=== PATIENT | female | born 1965 | race Caucasian/White ===

== ENCOUNTER 2017-01-22 13:28 | Emergency (ER) | payer OTHER ==
[~2017-01-22] VITALS: Ht 167.6 cm; Wt 81.6 kg
[~2017-01-22 13:28] MED LIST: CIPR500T78 PO; CLAR-19 PO; DIAZ-345 PO; FLUO40CA12 PO; HCT25T; HYDR-1231 PO; HYDR-2997 PO; HYDR-3583 PO; HYDR-3714 PO; IBP200T PO; LISI2.5T PO; LOSA25TA5 PO; MECL-106 PO; MECL-124 PO; MELO7.5T PO; METH4TAB PO; MTF500T PO; OMEG1CAP74 PO; ONDA4TAB8 SL; ONDA8TAB13 PO; ONDAN4ODT PO; PHEN200T27 PO; PRAV10TA23; PRD20T PO; PRM25T PO; SCOP1PAT TD; SMV20T PO; SULF-222 PO
--- OUTSIDE RECORDS SUMMARY | 2017-01-22 13:33 | XMS REPORT | Continuity of Care Document ---
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 Name Role Phone GINNY REESE MD PCP Insurance Providers Payer Name Policy Number Subscriber Name Relationship [facility] [place] [id number] Anna Fall 18 Self / Same As Patient Advance Directives Directive Response Recorded Date/Time Advance Directives No 09/24/16 11:14am Health Care Power of Apparatus Lineman No 09/24/16 11:14am Organ Donor No 09/24/16 11:14am Resuscitation Status Full Code 09/24/16 11:14am Chief Complaint and Reason for Visit Chief Complaint Dizziness/Syncope Reason for Visit Acute serous otitis media Vertigo Problems Active Problems Medical Problem Onset Date Status Acute serous otitis media Unknown Acute Right flank pain Unknown Acute Right ureteral stone Unknown Acute Ureterolithiasis Unknown Acute Ureterolithiasis Unknown Acute Ureterolithiasis Unknown Acute Vertigo Unknown Acute Medications Current Home Medications Medication Dose Units Route Directions Days/Qty Instructions Start Date Losartan Potassium 25 Mg 25 Mg Oral Twice A Day 25MG IN AM AND 50 IN PM 02/02/13 Meclizine Hcl 25 Mg 25 Mg Oral Three Times A Day as needed for Dizziness 30 09/24/16 Methylprednisolone 4 Mg 4 Mg Oral As Directed 1 09/24/16 Past Home Medications Medication Directions Ordered Status Meloxicam 7.5 Mg Tablet, 7.5 Mg Oral Prn 02/28/09 Discontinued Fluoxetine Hcl 40 Mg Capsule, 40 Mg Oral Daily 02/28/09 Discontinued Clarithromycin 500 Mg Tab, 500 Mg Oral Twice A Day 02/28/09 Discontinued Pravastatin Sodium 10 Mg Tablet, 09/17/09 Discontinued Hydrochlorothiazide 25 Mg Tab, 09/17/09 Discontinued Acetaminophen/Hydrocodone Bitart 1 Tab Tablet, 1 Each Oral Q 4 - 6 Hrs Prn Discontinued Promethazine Hcl 25 Mg Tablet, 1 Tab Oral Four Times Daily 09/17/09 Discontinued Meclizine Hcl 25 Mg Tab, 1 - 2 Tab Oral Q 4-6 Hours as needed 07/16/10 Discontinued Scopolamine Hcl 1 Patch .72 H Patch.td72, 1 Ea Transderm Every 3 Days Discontinued Ondansetron Hcl 4 Mg Tab, 4 Mg Oral Every 4HRS 07/16/10 Discontinued Diazepam 5 Mg Tablet, 1 Each Oral Three Times A Day And Prn 07/16/10 Discontinued Lisinopril 2.5 Mg Tablet, 2.5 Mg Oral Daily 01/22/12 Discontinued Simvastatin 20 Mg Tab, 20 Mg Oral Daily 01/22/12 Discontinued [place]-3/Dha/Epa/Fish Oil 1,000 Mg Capsule, 1000 Mg Oral Twice A Day 01/22/12 Discontinued Ibuprofen 200 Mg Tablet, 600 Each Oral Every 6 Hours 01/22/12 Discontinued Metformin Hcl (Glucophage) 500 Mg Tablet, 500 Mg Oral Daily 08/22/13 Discontinued Prednisone 20 Mg Tab, 40 Mg Oral Daily 08/22/13 Discontinued Trimethoprim/Sulfamethoxazole 1 Ea Tablet, 1 Ea Oral Twice A Day 08/22/13 Discontinued Acetaminophen/Hydrocodone Bitart 1 Tab Tab, 1 Ea Oral Q4hr Prn 08/22/13 Discontinued Hydrocodone Bit/Acetaminophen 1 Tab Tablet, 1 Tab Oral Every 4HRS 10/25/14 Discontinued Ondansetron Hcl 4 Mg Tab, 4 Mg Sublingual Every 4HRS as needed for Nausea/ Vomiting 10/25/14 Discontinued Ciprofloxacin Hcl 500 Mg Tablet, 500 Mg Oral Twice A Day 10/25/14 Discontinued Phenazopyridine Hcl 200 Mg Tablet, 1 Each Oral Three Times A Day as needed for Spasms 03/18/15 Discontinued Ciprofloxacin Hcl 500 Mg Tablet, 500 Mg Oral Twice A Day 03/18/15 Discontinued Acetaminophen/Hydrocodone Bitart 1 Each Tablet, 1 Each Oral Q4hr Prn as needed for Pain 03/18/15 Discontinued Ondansetron 8 Mg Tab.rapdis, 8 Mg Oral Every 6 Hours as needed for Nausea/ Vomiting 03/18/15 Discontinued Hydrocodone Bit/Acetaminophen 1 Tab Tablet, 1-2 Tab Oral Every 4HRS as needed for Pain 05/14/15 Discontinued Social History Social History Problem Response Recorded Date/Time Alcohol Use Denies Use 05/14/2015 5:02am Recreational Drug Use No 05/14/2015 5:02am Recent Foreign Travel No 09/24/2016 11:14am Recent Infectious Disease Exposure No 09/24/2016 11:14am Hospitalization with Isolation Denies 09/24/2016 11:14am Sexually Transmitted Disease No 09/24/2016 11:14am Smoking Status Never a Smoker 09/24/2016 11:14am Recent Hopitalizations No 09/24/2016 11:14am Sexually Transmitted Disease No 09/24/2016 11:14am Hospitalization with Isolation Denies 09/24/2016 11:14am Query Response Start Date Stop Date Smoking Status Never a Smoker Hospital Discharge Instructions No hospital discharge instructions. Plan of Care Discharge Date 09/24/16 12:24pm Disposition 01 HOME, SELF-CARE Condition at Discharge Stable Instructions/Education Provided Vertigo (a Type of Dizziness) (DC) Forms Provided Work Release Form Prescriptions See Medication Section Referrals GINNY REESE MD - Primary Care Physician Additional Instructions/Education 1. Follow-up with your doctor next week 2. Return to ER for any concerns All discharge instructions reviewed with patient and/or family. Voiced understanding. Functional Status Query Response Date Recorded Patient Orientation Person Place Time Situation Normal For Age September 24, 2016 11:14am Comprehension Ability Understands Concepts September 24, 2016 11:14am Allergies, Adverse Reactions, Alerts No known allergies. Immunizations No immunization records. Vital Signs Acute Vital Signs Vital Response Date/Time Temperature (Fahrenheit) 98.2 degrees F (97.6 - 99.5) 09/24/2016 11:14am Temperature (Calculated Celsius) 36.90716 degrees C (36.4 - 37.5) 09/24/2016 11:14am Pulse Rate (adult) 54 bpm (60 - 90) 09/24/2016 11:14am Respiratory Rate 18 bpm (12 - 24) 09/24/2016 11:14am O2 Sat by Pulse Oximetry 97 % (88 - 100) 09/24/2016 11:14am Blood Pressure 150/89 mm Hg 09/24/2016 11:14am Blood Pressure Mean 109 mm Hg 09/24/2016 11:14am Pain Numeric Pain Scale 0-No Pain 09/24/2016 11:14am Height (Feet) 5 feet 09/24/2016 11:14am Height (Inches) 5 inches 09/24/2016 11:14am Height (Calculated Centimeters) 165.519314 cm 09/24/2016 11:14am Weight (Pounds) 186 pounds 09/24/2016 11:14am Weight (Calculated Kilograms) 84.892865 kilograms 09/24/2016 11:14am Capillary Refill Capillary Refill Less Than 3 Seconds 09/24/2016 11:14am Height 5 ft 5 in Weight 186 lb Body Mass Index 31.0 kg/m^2 Results Laboratory Results Test Name Result Units Flags Reference Collection Date/Time Result Date/ Time Comments Urine Color YELLOW 09/24/2016 11:20am 09/24/2016 11:47am Urine Clarity CLEAR 09/24/2016 11:20am 09/24/2016 11:47am Urine pH 8 5-9 09/24/2016 11:20am 09/24/2016 11:47am Urine Specific [place] 1.010 * 1.016-1.022 09/24/2016 11:20am 2015 11:47am Urine Protein NEGATIVE NEGATIVE 09/24/2016 11:20am 09/24/2016 11: 47am Urine Glucose (UA) NEGATIVE NEGATIVE 09/24/2016 11:20am 09/24/2016 11 :47am Urine RBC (Auto) NEGATIVE NEGATIVE 09/24/2016 11:20am 09/24/2016 11: 47am Urine Ketones NEGATIVE NEGATIVE 09/24/2016 11:20am 09/24/2016 11: 47am Urine Nitrite NEGATIVE NEGATIVE 09/24/2016 11:20am 09/24/2016 11: 47am Urine Bilirubin NEGATIVE NEGATIVE 09/24/2016 11:20am 09/24/2016 11: 47am Urine Urobilinogen NORMAL MG/DL NORMAL 09/24/2016 11:20am 09/24/2016 11 :47am Urine Leukocyte Esterase NEGATIVE NEGATIVE 09/24/2016 11:20am 2015 11:47am Urine RBC NONE /HPF 09/24/2016 11:20am 09/24/2016 11:47am Urine WBC NONE /HPF 09/24/2016 11:20am 09/24/2016 11:47am Urine Bacteria NEGATIVE /HPF 09/24/2016 11:20am 09/24/2016 11:47am Urine Squamous Epithelial Cells 2-5 /HPF 09/24/2016 11:20am 2015 11:47am Urine Crystals NONE /LPF 09/24/2016 11:20am 09/24/2016 11:47am Urine Casts NONE /LPF 09/24/2016 11:20am 09/24/2016 11:47am Urine Mucus NEGATIVE /LPF 09/24/2016 11:20am 09/24/2016 11:47am Urine Culture Indicated NO 09/24/2016 11:20am 09/24/2016 11:47am Procedures No known history of procedures. Encounters Encounter Location Arrival/Admit Date Discharge/Depart Date Attending Provider Departed Emergency Room [facility] 09/24/16 11:08am 12:24pm ASHLEY GRAVES APRN Recent Diagnosis
[2017-01-22 13:59] LABS: BILIRUBIN,URINE NEGATIVE (NEGATIVE); KETONES,URINE NEGATIVE (NEGATIVE); LEUKOCYTE ESTERASE ,URINE NEGATIVE (NEGATIVE); NITRITE,URINE NEGATIVE (NEGATIVE); PH,URINE 6.5 (5-9); PROTEIN,URINE NEGATIVE (NEGATIVE); UROBILINOGEN,URINE NORMAL (NORMAL)
[2017-01-22 14:29] LABS: BASOPHILS # (AUTO) 0.1 10^3/uL (0.0-0.1); BASOPHILS % (AUTO) 1 % (0-10); EOSINOPHILS # (AUTO) 0.1 10^3/uL (0.0-0.3); EOSINOPHILS % (AUTO) 2 % (0-10); LYMPHOCYTES # (AUTO) 1.9 X 10^3 (1.0-4.0); LYMPHOCYTES % (AUTO) 32 % (12-44); MEAN CORPUSCULAR HEMOGLOBIN 32 PG (25-34); MEAN CORPUSCULAR HGB CONC 35 G/DL (32-36); MEAN CORPUSCULAR VOLUME 92 FL (80-99); MEAN PLATELET VOLUME 11.8 FL (7.4-10.4); MONOCYTES # (AUTO) 0.4 X 10^3 (0.0-1.0); MONOCYTES % (AUTO) 7 % (0-12); NEUTROPHILS # (AUTO) 3.4 X 10^3 (1.8-7.8); NEUTROPHILS % (AUTO) 58 % (42-75); PLATELET COUNT 214 10^3/uL (130-400); RED CELL DISTRIBUTION WIDTH 12.4 % (10.0-14.5); WHITE BLOOD COUNT 5.9 10^3/uL (4.3-11.0)
[2017-01-22 14:48] LABS: ALANINE AMINOTRANSFERASE 132 U/L (0-55); ALBUMIN 4.3 G/DL (3.2-4.5); ANION GAP 12 MMOL/L (5-14); ASPARTATE AMINO TRANSFERASE 107 U/L (5-34); BILIRUBIN,TOTAL 0.5 MG/DL (0.1-1.0); BLOOD UREA NITROGEN 15 MG/DL (7-18); BUN/CREATININE RATIO 19; CALCIUM 9.8 MG/DL (8.5-10.1); CARBON DIOXIDE 24 MMOL/L (21-32); CHLORIDE 104 MMOL/L (98-107); CREATININE SERUM 0.79 MG/DL (0.60-1.30); GFR ESTIMATED > 60; GLUCOSE 134 MG/DL (70-105); LIPASE 37 U/L (8-78); POTASSIUM 3.7 MMOL/L (3.6-5.0); SODIUM 140 MMOL/L (135-145); TOTAL PROTEIN 7.3 G/DL (6.4-8.2)
[2017-01-22] MEDS ORDERED: NS 100 ML (IVPB) BAG IV ONE (15:00)
[2017-01-22] MEDS ORDERED: IOHEXOL 350 MG/ML 100 ML (OMNIPAQUE 350) VIAL IV ONE (15:00)
[2017-01-22] MEDS ORDERED: CATHETER FLUSH 10 ML SYR IV PRN (15:00)
[2017-01-22] MEDS ORDERED: ONDANSETRON 4 MG/2 ML (SDV) Z0FRAN IVP ONE (15:00)
--- NOTE | 2017-01-22 16:00 | Diagnostic Imaging Report ---
PROCEDURE: CT abdomen and pelvis with contrast, rule out appendicitis. TECHNIQUE: Multiple contiguous axial images were obtained through the abdomen and pelvis after the administration of intravenous contrast. INDICATION: Abdominal pain. Nausea. CONTRAST: 100 mL of Omnipaque 350 was administered intravenously. FINDINGS: The lung bases appear clear. The liver, spleen, pancreas, and right adrenal gland appear unremarkable. The left adrenal gland demonstrates a 0.9 cm hypodense nodule which is better seen than on the 05/14/2015 study but was probably present with no definitive change in favor of an adenoma. The kidneys have symmetric enhancement and contrast excretion. There is no hydronephrosis. The appendix is normal. There is no bowel obstruction. The abdominal aorta is normal in caliber. There is no marnie-aortic significantly enlarged lymph node seen. There is suggestion of prior hysterectomy. The osseous structures appear grossly unremarkable. There is no free fluid or fluid collection in the abdomen or pelvis seen. IMPRESSION: 1. A 0.9 cm left adrenal hypodense nodule is similar to prior studies, likely related to an incidental adenoma. 2. The appendix is normal. No acute process. Dictated by: Dictated on workstation # [id number]
[2017-01-22] MEDS ORDERED: ONDA4TAB8 SL (16:25)
--- NOTE | 2017-01-22 16:25 | ED Abdominal Pain ---
General Chief Complaint: Abdominal/GI Problems Stated Complaint: ABD PAIN Nursing Triage Note: AMBULATED TO ROOM 10 WITHOUT DIFFICULTY. COMPLAINS OF PAIN RIGHT UPPER ABD STARTING APPX 1 HR AGO. HAS NOT TAKEN ANY MEDS TO DECREASE THE PAIN. Sepsis Screen: No Definite Risk Source of Information: Patient Exam Limitations: No Limitations History of Present Illness Time Seen By Provider: 13:31 Initial Comments This 51-year-old woman presents to the emergency room with complaints of right- sided abdominal pain that started within the last couple of hours. Earlier in the day she had loss of appetite and nausea without vomiting. She denies any diarrhea or constipation. Her last bowel movement was yesterday and was normal. Denies fever. She has some pain with walking and driving. Her last solid intake was at 09:00. She has been drinking tea since then. She is status post hysterectomy and cholecystectomy. She reports pain at this time is rated as 6/10. It was 9/10 at its worst. Allergies and Home Medications Allergies Coded Allergies: No Known Drug Allergies (Unverified , 02/28/09) Home Medications Losartan Potassium 25 Mg Tablet 25 MG PO BID (Reported) 25MG IN AM AND 50 IN PM Ondansetron 4 Mg Tab.rapdis #10 4 MG SL Q4H PRN PRN NAUSEA/VOMITING Prescribed by: FRANK PECK on 01/22/17 1625 Review of Systems Constitutional: no symptoms reported EENTM: No Symptoms Reported Respiratory: No Symptoms Reported Cardiovascular: No Symptoms Reported Gastrointestinal: See HPI Genitourinary: No Symptoms Reported Musculoskeletal: no symptoms reported Skin: no symptoms reported Psychiatric/Neurological: No Symptoms Reported Endocrine: No Symptoms Reported Past Gtqnpls-Ixpztw-Jmgzug Hx Patient Social History Alcohol Use: Denies Use Recreational Drug Use: No Smoking Status: Never a Smoker Recent Foreign Travel: No Contact w/Someone Who Travel: No Recent Infectious Disease Expo: No Recent Hopitalizations: No Immunizations Up To Date Tetanus Booster (TDap): Unknown Date of Influenza Vaccine: Aug 10, 2016 Seasonal Allergies Seasonal Allergies: No Surgeries HX Surgeries: Yes (KNEE, ELBOW SURG, X 2, skin lesion removals) Surgeries: Section, Gallbladder, Hysterectomy, Orthopedic, Tubal Ligation Respiratory Hx Respiratory Disorders: No Cardiovascular Hx Cardiac Disorders: Yes Cardiac Disorders: High Cholesterol, Hypertension Neurological Hx Neurological Disorders: No Reproductive System Hx Reproductive Disorders: No Sexually Transmitted Disease: No 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 Genitourinary Hx Genitourinary Disorders: Yes Genitourinary Disorders: Kidney Stones Gastrointestinal Hx Gastrointestinal Disorders: No Musculoskeletal Hx Musculoskeletal Disorders: No Endocrine Hx Endocrine Disorders: No HEENT HX ENT Disorders: No Cancer Hx Cancer: No Psychosocial Hx Psychiatric Problems: No Integumentary HX Skin/Integumentary Disorder: No Blood Transfusions Hx Blood Disorders: No Family Medical History Significant Family History: No Pertinent Family Hx Physical Exam Vital Signs VS - Last 72 Hours, by Label 01/22/17 01/22/17 13:40 16:30 Temp 98.0 Pulse 68 58 Resp 16 16 B/P 131/93 Pulse Ox 97 98 Capillary Refill : Less Than 3 Seconds General Appearance: WD/WN no apparent distress HEENT: PERRL/EOMI normal ENT inspection Neck: normal inspection Respiratory: lungs clear normal breath sounds no respiratory distress no accessory muscle use Cardiovascular: regular rate, rhythm no edema no murmur Gastrointestinal: normal bowel sounds soft tenderness (right middle and lower abdomen) Extremities: normal inspection no pedal edema Neurologic/Psychiatric: health care liaison II-XII nml as tested no motor/sensory deficits alert normal mood/affect oriented x 3 Skin: normal color warm/dry Focused Exam Lactic Acid Level Laboratory Tests Test 01/22/17 14:19 Alanine Aminotransferase (ALT/SGPT) 132U/L (0-55) H Albumin 4.3G/DL (3.2-4.5) Alkaline Phosphatase 87U/L (40-136) Anion Gap 12MMOL/L (5-14) Aspartate Amino Transf (AST/SGOT) 107U/L (5-34) H BUN/Creatinine Ratio 19 Blood Urea Nitrogen 15MG/DL (7-18) Calcium Level 9.8MG/DL (8.5-10.1) Carbon Dioxide Level 24MMOL/L (21-32) Chloride Level 104MMOL/L (98-107) Creatinine 0.79MG/DL (0.60-1.30) Estimat Glomerular Filtration Rate > 60 Glucose Level 134MG/DL (70-105) H Lipase 37U/L (8-78) Potassium Level 3.7MMOL/L (3.6-5.0) Sodium Level 140MMOL/L (135-145) Total Bilirubin 0.5MG/DL (0.1-1.0) Total Protein 7.3G/DL (6.4-8.2) Progress/Results/Core Measures Results/Orders Lab Results Laboratory Tests Test 01/22/17 13:50 01/22/17 14:19 Range/Units Urine Bacteria NEGATIVE /HPF Urine Bilirubin NEGATIVE NEGATIVE Urine Casts NONE /LPF Urine Clarity CLEAR Urine Color YELLOW Urine Crystals NONE /LPF Urine Culture Indicated NO Urine Glucose (UA) NEGATIVE NEGATIVE Urine Ketones NEGATIVE NEGATIVE Urine Leukocyte Esterase NEGATIVE NEGATIVE Urine Mucus NEGATIVE /LPF Urine Nitrite NEGATIVE NEGATIVE Urine Protein NEGATIVE NEGATIVE Urine RBC NONE /HPF Urine RBC (Auto) NEGATIVE NEGATIVE Urine Specific [place] 1.005 L 1.016-1.022 Urine Squamous Epithelial Cells 2-5 /HPF Urine Urobilinogen NORMAL NORMAL MG/DL Urine WBC NONE /HPF Urine pH 6.5 5-9 Alanine Aminotransferase (ALT/SGPT) 132 H 0-55 U/L Albumin 4.3 3.2-4.5 G/DL Alkaline Phosphatase 87 40-136 U/L Anion Gap 12 5-14 MMOL/L Aspartate Amino Transf (AST/SGOT) 107 H 5-34 U/L BUN/Creatinine Ratio 19 Basophils # (Auto) 0.1 0.0-0.1 10^3/uL Basophils (%) (Auto) 1 0-10 % Blood Urea Nitrogen 15 7-18 MG/DL Calcium Level 9.8 8.5-10.1 MG/DL Carbon Dioxide Level 24 21-32 MMOL/L Chloride Level 104 98-107 MMOL/L Creatinine 0.79 0.60-1.30 MG/DL Eosinophils # (Auto) 0.1 0.0-0.3 10^3/uL Eosinophils (%) (Auto) 2 0-10 % Estimat Glomerular Filtration Rate > 60 Glucose Level 134 H 70-105 MG/DL Hematocrit 40 35-52 % Hemoglobin 13.8 11.5-16.0 G/DL Lipase 37 8-78 U/L Lymphocytes # (Auto) 1.9 1.0-4.0 X 10^3 Lymphocytes (%) (Auto) 32 12-44 % Mean Corpuscular Hemoglobin 32 25-34 PG Mean Corpuscular Hemoglobin Concent 35 32-36 G/DL Mean Corpuscular Volume 92 80-99 FL Mean Platelet Volume 11.8 H 7.4-10.4 FL Monocytes # (Auto) 0.4 0.0-1.0 X 10^3 Monocytes (%) (Auto) 7 0-12 % Neutrophils # (Auto) 3.4 1.8-7.8 X 10^3 Neutrophils (%) (Auto) 58 42-75 % Platelet Count 214 130-400 10^3/uL Potassium Level 3.7 3.6-5.0 MMOL/L Red Blood Count 4.30 L 4.35-5.85 10^6/uL Red Cell Distribution Width 12.4 10.0-14.5 % Sodium Level 140 135-145 MMOL/L Total Bilirubin 0.5 0.1-1.0 MG/DL Total Protein 7.3 6.4-8.2 G/DL White Blood Count 5.9 4.3-11.0 10^3/uL My Orders Orders-FRANK DAMON MD Ua Culture If Indicated (01/22/17 13:31) Saline Lock/Iv-Start (01/22/17 14:07) Cbc With Automated Diff (01/22/17 14:07) Comprehensive Metabolic Panel (01/22/17 14:07) Lipase (01/22/17 14:07) Ct Abd/Pelv W (Appendicitis) (01/22/17 14:56) Iohexol Injection (Omnipaque 350 Mg/Ml 1 (01/22/17 15:00) Sodium Chloride Flush (Catheter Flush Sy (01/22/17 15:00) Ns (Ivpb) (Sodium Chloride 0.9% Ivpb Bag (01/22/17 15:00) Ondansetron Injection (Zofran Injectio (01/22/17 15:00) Ketorolac Injection (Toradol Injection) (01/22/17 16:30) Medications Given in ED Current Medications Medications Dose Ordered Sig/Abdi Route Start Time Stop Time Status Last Admin Dose Admin Iohexol 100 ml ONCE ONCE IV 01/22/17 15:00 01/22/17 15:03 DC 01/22/17 15:12 100 ML Ketorolac Tromethamine 30 mg ONCE ONCE IVP 01/22/17 16:30 01/22/17 16:31 DC 01/22/17 16:25 30 MG Ondansetron HCl 4 mg ONCE ONCE IVP 01/22/17 15:00 3/15/17 15:01 DC 01/22/17 15:05 4 MG Sodium Chloride 100 ml ONCE ONCE IV 01/22/17 15:00 01/22/17 15:03 DC 01/22/17 15:12 80 ML Vital Signs/I&O Vital Sign - Last 12Hours 01/22/17 01/22/17 13:40 16:30 Temp 98.0 Pulse 68 58 Resp 16 16 B/P 131/93 Pulse Ox 97 98 Blood Pressure Mean: 106 Progress Note : Progress Note Labs were unremarkable. Options discussed with patient including potential for CT scan versus careful observation at home. Patient elects CT scan after discussion of risks and benefits. CT scan was negative for acute abnormalities. Patient was given Toradol and Zofran for symptom management. Diagnostic Imaging Diagonstic Imaging: CT Plain Films/CT/US/NM/MRI: abdomen, pelvis Comments CT abdomen and pelvis viewed by me and report reviewed. See report below: NAME: ELISSA FALL [facility] REC#: [id number] PT STATUS: REG ER : 1965 PHYSICIAN: FRANK DAMON MD ADMIT DATE: 01/22/17/ER Draft Date of Exam:01/22/17 CT ABD/PELV W (APPENDICITIS) PROCEDURE: CT abdomen and pelvis with contrast, rule out appendicitis. TECHNIQUE: Multiple contiguous axial images were obtained through the abdomen and pelvis after the administration of intravenous contrast. INDICATION: Abdominal pain. Nausea. CONTRAST: 100 mL of Omnipaque 350 was administered intravenously. FINDINGS: The lung bases appear clear. The liver, spleen, pancreas, and right adrenal gland appear unremarkable. The left adrenal gland demonstrates a 0.9 cm hypodense nodule which is better seen than on the 05/14/2015 study but was probably present with no definitive change in favor of an adenoma. The kidneys have symmetric enhancement and contrast excretion. There is no hydronephrosis. The appendix is normal. There is no bowel obstruction. The abdominal aorta is normal in caliber. There is no marnie-aortic significantly enlarged lymph node seen. There is suggestion of prior hysterectomy. The osseous structures appear grossly unremarkable. There is no free fluid or fluid collection in the abdomen or pelvis seen. IMPRESSION: 1. A 0.9 cm left adrenal hypodense nodule is similar to prior studies, likely related to an incidental adenoma. 2. The appendix is normal. No acute process. Dictated on workstation # [id number] Dict: 01/22/17 1549 Trans: 01/22/17 1559 [id number] Interpreted by: KO JIMENEZ MD Departure Impression Impression: Primary Impression: Right-sided abdominal pain of unknown cause Additional Impression: Nausea Disposition: 01 HOME, SELF-CARE Condition: Improved Departure-Patient Inst. Decision time for Depature: 16:15 Referrals: GINNY REESE MD (PCP/Family) Primary Care Physician Patient Instructions: Acute Abdomen (Belly Pain), Adult (DC) Add. Discharge Instructions: Use Tylenol up to 1000 mg every 6 hours as needed for pain. If necessary, add ibuprofen up to 600 mg every 6 hours as needed for additional pain relief. Use Zofran (ondansetron) as prescribed for nausea. Follow-up with your doctor in a few days if pain becomes persistent. Return to the ER if symptoms worsen. Start with a clear liquid diet and gradually advance your diet as tolerated. All discharge instructions reviewed with patient and/or family. Voiced understanding. Scripts Ondansetron (Zofran Odt)4 Mg Tab.rapdis4 Mg SL Q4H PRN NAUSEA/VOMITING #10 TAB Prov:FRANK DAMON MD 01/22/17 FRANK DAMON MD Jan 22, 2017 16:25
[2017-01-22 16:30] VITALS: BP 123/80
[2017-01-22] MEDS ORDERED: KETOROLAC 30 MG/ML VIAL IVP ONE (16:30)
== END 2017-01-22 16:30 | disposition home or self-care (01) ==
LOC: EDUNIT# 13:28 → ER 13:30
DX: R10.11 Right upper quadrant pain (principal); R11.2 Nausea with vomiting, unspecified; I10 Essential (primary) hypertension; E27.9 Disorder of adrenal gland, unspecified; Z90.49 Acquired absence of other specified parts of digestive tract
CPT/HCPCS: 36415; 74177; 80053; 81000; 83690; 85025; 96374; 96375

== ENCOUNTER → 2017-02-10 | Outpatient (CLI) | payer OTHER | LOC: LAB 16:06 | PROVIDERS: ATTEND Internal Medicine Gastroenterology | DX: R74.0 Nonspecific elevation of levels of transaminase and lactic acid dehydrogenase [LDH] (principal); R93.8 Abnormal findings on diagnostic imaging of other specified body structures | CPT/HCPCS: 36415; 82390; 82728; 86803; 87340 ==

== ENCOUNTER 2017-07-25 12:45 | Emergency (ER) | payer OTHER ==
[~2017-07-25] VITALS: Ht 160 cm; Wt 68.0 kg
[2017-07-25 14:03] LABS: BILIRUBIN,URINE NEGATIVE (NEGATIVE); KETONES,URINE NEGATIVE (NEGATIVE); LEUKOCYTE ESTERASE ,URINE NEGATIVE (NEGATIVE); NITRITE,URINE NEGATIVE (NEGATIVE); PH,URINE 5 (5-9); PROTEIN,URINE 1+ (NEGATIVE); UROBILINOGEN,URINE 4 MG/DL (NORMAL)
[2017-07-25 14:13] LABS: CALCIUM OXALATE CRYSTALS,UR MODERATE /LPF; WBC,URINE RARE /HPF
[2017-07-25] MEDS ORDERED: NS IV 1000 ML 1,000 ML IV ONE (14:17)
--- NOTE | 2017-07-25 14:41 | ED Abdominal Pain ---
General Chief Complaint: Abdominal/GI Problems Stated Complaint: RLQ ABD PAIN Nursing Triage Note: c/o right lower abd pain. Onset yesterday. Mild nausea Sepsis Screen: No Definite Risk Source of Information: Patient Exam Limitations: No Limitations History of Present Illness Time Seen By Provider: 14:14 Initial Comments Here with report of right lower quadrant abdominal pain. Onset yesterday more periumbilical and moved to the right lower quadrant over night and this morning. Tried to ignore it but it began to hurt worse. Has had decreased appetite. Complains of nausea but no vomiting. Denies diarrhea but states like she feels like she could area and pain is worse with movement and better with rest. She has never had pain like this before. Timing/Duration: 24 Hours Severity/Quality: Moderate, Aching Location: RLQ Radiation: No Radiation Activities at Onset: None Modifying Factors: Worsens With Movement Associated Symptoms: No Back Pain, No Chest Pain, No Fever/Chills, Nausea/ Vomiting, No Shortness of Air, No Swelling/Mass in Abdomen, No Weakness Allergies and Home Medications Allergies Coded Allergies: No Known Drug Allergies (Unverified , 02/28/09) Home Medications Losartan Potassium 25 Mg Tablet, 25 MG PO BID, (Reported) 25MG IN AM AND 50 IN PM Ondansetron 4 Mg Tab.rapdis, 4 MG SL Q4H PRN for NAUSEA/VOMITING, #10 Prescribed by: FRANK PECK on 01/22/17 1625 Review of Systems Constitutional: see HPI, No chills, No fever EENTM: No Symptoms Reported Respiratory: No Symptoms Reported Cardiovascular: No Symptoms Reported Gastrointestinal: See HPI, Abdominal Pain, Nausea, Denies Vomiting Genitourinary: No Symptoms Reported Musculoskeletal: no symptoms reported Skin: no symptoms reported All Other Systems Reviewed Negative Unless Noted: Yes Past Oapfmif-Ziitid-Xtaqje Hx Patient Social History Alcohol Use: Denies Use Recreational Drug Use: No Smoking Status: Never a Smoker Recent Foreign Travel: No Contact w/Someone Who Travel: No Recent Infectious Disease Expo: No Recent Hopitalizations: No Immunizations Up To Date Tetanus Booster (TDap): Unknown Date of Influenza Vaccine: Aug 10, 2016 Seasonal Allergies Seasonal Allergies: No Surgeries History of Surgeries: Yes Surgeries: Gallbladder, Hysterectomy Cardiovascular Cardiac Disorders: High Cholesterol, Hypertension Reproductive System Hx Reproductive Disorders: No Sexually Transmitted Disease: No [employer]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 Genitourinary Genitourinary Disorders: Kidney Stones Reviewed Nursing Assessment Reviewed/Agree w Nursing PMH: Yes Family Medical History Significant Family History: No Pertinent Family Hx Physical Exam Vital Signs VS - Last 72 Hours, by Label 07/25/17 12:55 Temp 97.5 Pulse 70 Resp 16 B/P (MAP) 162/96 Pulse Ox 98 Capillary Refill : Less Than 3 Seconds General Appearance: WD/WN, no apparent distress HEENT: PERRL/EOMI, pharynx normal Neck: full range of motion, supple Respiratory: lungs clear, normal breath sounds Cardiovascular: regular rate, rhythm, no murmur Peripheral Pulses: 2+ Dorsalis Pedis (R), 2+ Left Dors-Pedis (L), 2+ Radial Pulses (R), 2+ Radial Pulses (L) Gastrointestinal: soft, No guarding, No rebound, tenderness (right lower quadrant) Extremities: non-tender, normal inspection Back: normal inspection, no CVA tenderness, no vertebral tenderness Neurologic/Psychiatric: alert, oriented x 3 Skin: normal color, warm/dry Progress/Results/Core Measures Results/Orders Lab Results Laboratory Tests Test 07/25/17 12:55 07/25/17 14:35 Range/Units Urine Color YELLOW Urine Clarity CLEAR Urine pH 5 5-9 Urine Specific [place] 1.025 H 1.016-1.022 Urine Protein 1+ H NEGATIVE Urine Glucose (UA) NEGATIVE NEGATIVE Urine Ketones NEGATIVE NEGATIVE Urine Nitrite NEGATIVE NEGATIVE Urine Bilirubin NEGATIVE NEGATIVE Urine Urobilinogen 4 H NORMAL MG/DL Urine Leukocyte Esterase NEGATIVE NEGATIVE Urine RBC (Auto) NEGATIVE NEGATIVE Urine RBC NONE /HPF Urine WBC RARE /HPF Urine Squamous Epithelial Cells 2-5 /HPF Urine Crystals PRESENT H /LPF Urine Calcium Oxalate Crystals MODERATE H /LPF Urine Bacteria NEGATIVE /HPF Urine Casts NONE /LPF Urine Mucus SMALL H /LPF Urine Culture Indicated NO White Blood Count 6.3 4.3-11.0 10^3/uL Red Blood Count 4.04 L 4.35-5.85 10^6/uL Hemoglobin 13.0 11.5-16.0 G/DL Hematocrit 38 35-52 % Mean Corpuscular Volume 94 80-99 FL Mean Corpuscular Hemoglobin 32 25-34 PG Mean Corpuscular Hemoglobin Concent 34 32-36 G/DL Red Cell Distribution Width 12.3 10.0-14.5 % Platelet Count 188 130-400 10^3/uL Mean Platelet Volume 11.9 H 7.4-10.4 FL Neutrophils (%) (Auto) 62 42-75 % Lymphocytes (%) (Auto) 30 12-44 % Monocytes (%) (Auto) 6 0-12 % Eosinophils (%) (Auto) 1 0-10 % Basophils (%) (Auto) 1 0-10 % Neutrophils # (Auto) 3.9 1.8-7.8 X 10^3 Lymphocytes # (Auto) 1.9 1.0-4.0 X 10^3 Monocytes # (Auto) 0.4 0.0-1.0 X 10^3 Eosinophils # (Auto) 0.1 0.0-0.3 10^3/uL Basophils # (Auto) 0.1 0.0-0.1 10^3/uL Sodium Level 141 135-145 MMOL/L Potassium Level 3.7 3.6-5.0 MMOL/L Chloride Level 107 98-107 MMOL/L Carbon Dioxide Level 26 21-32 MMOL/L Anion Gap 8 5-14 MMOL/L Blood Urea Nitrogen 16 7-18 MG/DL Creatinine 0.77 0.60-1.30 MG/DL Estimat Glomerular Filtration Rate > 60 BUN/Creatinine Ratio 21 Glucose Level 118 H 70-105 MG/DL Calcium Level 9.5 8.5-10.1 MG/DL Total Bilirubin 0.6 0.1-1.0 MG/DL Aspartate Amino Transf (AST/SGOT) 38 H 5-34 U/L Alanine Aminotransferase (ALT/SGPT) 58 H 0-55 U/L Alkaline Phosphatase 88 40-136 U/L Total Protein 7.3 6.4-8.2 GM/DL Albumin 4.2 3.2-4.5 GM/DL My Orders Orders - MARTINA GIBSON MD Ua Culture If Indicated (07/25/17 13:51) Cbc With Automated Diff (07/25/17 14:17) Comprehensive Metabolic Panel (07/25/17 14:17) Saline Lock/Iv-Start (07/25/17 14:17) Ns Iv 1000 Ml (Sodium Chloride 0.9%) (07/25/17 14:17) Ct Abd/Pelv W (Appendicitis) (07/25/17 14:17) Iohexol Injection (Omnipaque 350 Mg/Ml 1 (07/25/17 15:15) Ns (Ivpb) (Sodium Chloride 0.9% Ivpb Bag (07/25/17 15:15) Pharmacy Communication (Pharmacy Communi (07/25/17 15:08) Ketorolac Injection (Toradol Injection) (07/25/17 15:43) Medications Given in ED Current Medications Medications Dose Ordered Sig/Abdi Route Start Time Stop Time Status Last Admin Dose Admin Iohexol 100 ml ONCE ONCE IV 07/25/17 15:15 07/25/17 15:16 DC 07/25/17 15:17 100 ML Sodium Chloride 100 ml ONCE ONCE IV 07/25/17 15:15 07/25/17 15:16 DC 07/25/17 15:17 80 ML Sodium Chloride 1,000 ml @ 0 mls/hr Q0M ONCE IV 07/25/17 14:17 07/25/17 14:20 DC 07/25/17 14:32 1,000 MLS/HR Vital Signs/I&O Vital Sign - Last 12Hours 07/25/17 12:55 Temp 97.5 Pulse 70 Resp 16 B/P (MAP) 162/96 Pulse Ox 98 Blood Pressure Mean: 118 Progress Note : Progress Note Seen and evaluated. UA ordered. This does not show significant findings for stone or UTI. IV, labs and CT abdomen pelvis ordered. Monitor patient. Patient declined pain medicine. 1540: No acute findings. Patient still has some mild right lower quadrant abdominal pain. CT is negative for appendicitis or kidney stones. No other acute findings noted. Toradol 30 mg IV. Discharged home with return precautions. Patient verbalize understanding instructions and agreement with plan. Diagnostic Imaging Diagonstic Imaging: CT Plain Films/CT/US/NM/MRI: abdomen, pelvis Comments NAME: ELISSA FALL [facility] REC#: [id number] PT STATUS: REG ER : 1965 PHYSICIAN: MARTINA GIBSON MD ADMIT DATE: 07/25/17/ER Draft Date of Exam:07/25/17 CT ABD/PELV W (APPENDICITIS) PROCEDURE: CT abdomen and pelvis with contrast, rule out appendicitis. TECHNIQUE: Multiple contiguous axial images were obtained through the abdomen and pelvis after the administration of intravenous contrast. INDICATION: Right lower quadrant pain x1 day with nausea and vomiting. Comparison with 01/22/2017. FINDINGS: Lung bases are clear. The liver appears normal. Gallbladder is absent. Bile ducts are not dilated. Pancreas and spleen are normal. The adrenal glands are normal. The kidneys appear normal. Aorta is atherosclerotic without aneurysm. There is normal enhancement of the abdominal organs and vessels following IV contrast. The stomach and small bowel are nondistended. The colon shows a normal stool and gas pattern. The appendix is visualized and is normal. There is no appendicolith. No evidence of diverticulitis. The bladder is decompressed. Uterus is absent. There are no adnexal masses. There is no free air or free fluid. No intra-abdominal adenopathy present. IMPRESSION: 1. The appendix is visualized and normal. No changes to suggest inflammatory bowel disease. 2. Kidneys appear normal without calculi or obstruction. Dictated on workstation # [id number] Dict: 07/25/17 1529 Trans: 07/25/17 1537 [facility] [id number] Interpreted by: JENNY MARIE MD Electronically signed by: Departure Impression Impression: Primary Impression: Right lower quadrant abdominal pain Disposition: HOME, SELF-CARE Condition: Improved Departure-Patient Inst. Decision time for Depature: 15:46 Referrals: GINNY REESE MD (PCP/Family) Primary Care Physician Patient Instructions: Acute Abdomen (Belly Pain), Adult (DC) Add. Discharge Instructions: All discharge instructions reviewed with patient and/or family. Voiced understanding. Clear liquid diet for 24 hours and then advance as tolerated. Eat light foods after that. Follow-up with your DrLashae in a few days for recheck. Return for worse pain, fever, vomiting, weakness, breathing problems or other concerns as needed. You may take Tylenol 650 mg every 8 hours as needed for pain. You may take ibuprofen 800 mg every 8 hours as needed for pain. Drink plenty of fluids. MARTINA GIBSON MD Jul 25, 2017 14:41
[2017-07-25 14:51] LABS: BASOPHILS # (AUTO) 0.1 10^3/uL (0.0-0.1); BASOPHILS % (AUTO) 1 % (0-10); EOSINOPHILS # (AUTO) 0.1 10^3/uL (0.0-0.3); EOSINOPHILS % (AUTO) 1 % (0-10); LYMPHOCYTES # (AUTO) 1.9 X 10^3 (1.0-4.0); LYMPHOCYTES % (AUTO) 30 % (12-44); MEAN CORPUSCULAR HEMOGLOBIN 32 PG (25-34); MEAN CORPUSCULAR HGB CONC 34 G/DL (32-36); MEAN CORPUSCULAR VOLUME 94 FL (80-99); MEAN PLATELET VOLUME 11.9 FL (7.4-10.4); MONOCYTES # (AUTO) 0.4 X 10^3 (0.0-1.0); MONOCYTES % (AUTO) 6 % (0-12); NEUTROPHILS # (AUTO) 3.9 X 10^3 (1.8-7.8); NEUTROPHILS % (AUTO) 62 % (42-75); PLATELET COUNT 188 10^3/uL (130-400); RED BLOOD COUNT 4.04 10^6/uL (4.35-5.85); RED CELL DISTRIBUTION WIDTH 12.3 % (10.0-14.5); WHITE BLOOD COUNT 6.3 10^3/uL (4.3-11.0)
[2017-07-25 15:06] LABS: ALANINE AMINOTRANSFERASE 58 U/L (0-55); ALBUMIN 4.2 GM/DL (3.2-4.5); ANION GAP 8 MMOL/L (5-14); ASPARTATE AMINO TRANSFERASE 38 U/L (5-34); BILIRUBIN,TOTAL 0.6 MG/DL (0.1-1.0); BLOOD UREA NITROGEN 16 MG/DL (7-18); BUN/CREATININE RATIO 21; CALCIUM 9.5 MG/DL (8.5-10.1); CARBON DIOXIDE 26 MMOL/L (21-32); CHLORIDE 107 MMOL/L (98-107); CREATININE SERUM 0.77 MG/DL (0.60-1.30); GFR ESTIMATED > 60; GLUCOSE 118 MG/DL (70-105); POTASSIUM 3.7 MMOL/L (3.6-5.0); SODIUM 141 MMOL/L (135-145); TOTAL PROTEIN 7.3 GM/DL (6.4-8.2)
[2017-07-25] MEDS ORDERED: IOHEXOL 350 MG/ML 100 ML (OMNIPAQUE 350) VIAL IV ONE (15:15)
[2017-07-25] MEDS ORDERED: NS 100 ML (IVPB) BAG IV ONE (15:15)
--- NOTE | 2017-07-25 15:37 | Diagnostic Imaging Report ---
PROCEDURE: CT abdomen and pelvis with contrast, rule out appendicitis. TECHNIQUE: Multiple contiguous axial images were obtained through the abdomen and pelvis after the administration of intravenous contrast. INDICATION: Right lower quadrant pain x1 day with nausea and vomiting. Comparison with 01/22/2017. FINDINGS: Lung bases are clear. The liver appears normal. Gallbladder is absent. Bile ducts are not dilated. Pancreas and spleen are normal. The adrenal glands are normal. The kidneys appear normal. Aorta is atherosclerotic without aneurysm. There is normal enhancement of the abdominal organs and vessels following IV contrast. The stomach and small bowel are nondistended. The colon shows a normal stool and gas pattern. The appendix is visualized and is normal. There is no appendicolith. No evidence of diverticulitis. The bladder is decompressed. Uterus is absent. There are no adnexal masses. There is no free air or free fluid. No intra-abdominal adenopathy present. IMPRESSION: 1. The appendix is visualized and normal. No changes to suggest inflammatory bowel disease. 2. Kidneys appear normal without calculi or obstruction. Dictated by: Dictated on workstation # [id number]
[2017-07-25] MEDS ORDERED: KETOROLAC 30 MG/ML VIAL IVP STA (15:43)
[2017-07-25 16:20] VITALS: BP 152/90
== END 2017-07-25 16:20 | disposition home or self-care (01) ==
LOC: EDUNIT# 12:45 → ER 12:48
DX: R10.31 Right lower quadrant pain (principal); E78.00 Pure hypercholesterolemia, unspecified; I10 Essential (primary) hypertension; Z87.442 Personal history of urinary calculi; Z90.710 Acquired absence of both cervix and uterus
CPT/HCPCS: 36415; 74177; 80053; 81000; 85025; 96361; 96374

== ENCOUNTER 2017-11-28 13:03 | Emergency (ER) | payer OTHER ==
[~2017-11-28] VITALS: Ht 167.6 cm; Wt 80.7 kg
--- OUTSIDE RECORDS SUMMARY | 2017-11-28 13:11 | XMS REPORT | Continuity of Care Document ---
Author Author [facility] Organization [facility] Address Unknown Phone Unavailable Allergies Active Description Code Type Severity Reaction Onset Reported/Identified Relationship to Patient Clinical Status Yes No Known Drug Allergies [id number] Drug Allergy Mild N/A 02/28/2009 Medications There is no data. Problems Date Dx Coded Attending Type Code Diagnosis Diagnosed By 07/16/2010 Ot 780.4 DIZZINESS AND GIDDINESS 07/16/2010 Ot 790.5 ABN SERUM ENZY LEVEL NEC 08/20/2011 Ot 789.03 ABDOMINAL PAIN, RIGHT LOWER QUADRANT 08/22/2013 ASHLEY GRAVES UNDERPRESSER HAND Ot 599.0 URIN TRACT INFECTION NOS 08/22/2013 ASHLEY GRAVES UNDERPRESSER HAND Ot 719.45 JOINT PAIN-PELVIS 08/22/2013 ASHLEY GRAVES UNDERPRESSER HAND Ot 724.2 LUMBAGO 10/17/2014 Ot 571.8 10/17/2014 Ot 575.8 10/17/2014 Ot 611.71 10/17/2014 Ot 424.0 10/17/2014 Ot 785.1 10/17/2014 Ot 794.31 10/17/2014 Ot 786.09 10/17/2014 Ot 786.50 10/17/2014 Ot 401.9 10/17/2014 Ot 785.1 10/17/2014 Ot 611.71 10/17/2014 Ot 401.9 10/17/2014 Ot 786.50 10/17/2014 Ot 272.4 10/17/2014 Ot 401.9 10/17/2014 Ot 780.79 10/17/2014 Ot 786.50 10/25/2014 Ot 571.8 10/25/2014 Ot 575.8 10/25/2014 Ot 611.71 10/25/2014 Ot 424.0 10/25/2014 Ot 785.1 10/25/2014 Ot 794.31 10/25/2014 Ot 786.09 10/25/2014 Ot 786.50 10/25/2014 Ot 401.9 10/25/2014 Ot 785.1 10/25/2014 Ot 611.71 10/25/2014 Ot 401.9 10/25/2014 Ot 786.50 10/25/2014 Ot 272.4 10/25/2014 Ot 401.9 10/25/2014 Ot 780.79 10/25/2014 Ot 786.50 10/25/2014 GINNY REESE MD Ot 790.5 10/25/2014 MARISOL DIAZ, FRANK Perez Ot 592.1 CALCULUS OF URETER 10/25/2014 FRANK DAMON MD Ot 789.09 ABDOMINAL PAIN, OTHER SPECIFIED SITE 10/31/2014 GINNY REESE MD Ot 790.5 03/18/2015 MARTÍNEZ ROYAL Ot 592.1 CALCULUS OF URETER 03/18/2015 MARTÍNEZ ROYAL Ot 789.09 ABDOMINAL PAIN, OTHER SPECIFIED SITE 05/14/2015 Ot 611.71 05/14/2015 Ot 424.0 05/14/2015 Ot 785.1 05/14/2015 Ot 794.31 05/14/2015 Ot 786.09 05/14/2015 Ot 786.50 05/14/2015 Ot 401.9 05/14/2015 Ot 785.1 05/14/2015 Ot 611.71 05/14/2015 Ot 401.9 05/14/2015 Ot 786.50 05/14/2015 Ot 272.4 05/14/2015 Ot 401.9 05/14/2015 Ot 780.79 05/14/2015 Ot 786.50 05/14/2015 GINNY REESE MD Ot 790.5 05/14/2015 ABILIO KEBEDE MD Ot 592.1 CALCULUS OF URETER 05/14/2015 ABILIO KEBEDE MD Ot 789.01 ABDOMINAL PAIN, RIGHT UPPER QUADRANT 10/19/2015 Ot 424.0 10/19/2015 Ot 785.1 10/19/2015 Ot 794.31 10/19/2015 Ot 786.09 10/19/2015 Ot 786.50 10/19/2015 Ot 401.9 10/19/2015 Ot 785.1 10/19/2015 Ot 611.71 10/19/2015 Ot 401.9 10/19/2015 Ot 786.50 10/19/2015 Ot 272.4 10/19/2015 Ot 401.9 10/19/2015 Ot 780.79 10/19/2015 Ot 786.50 10/19/2015 MARY ANN DIAZ, GINNY Perez Ot 790.5 10/31/2015 Ot 424.0 10/31/2015 Ot 785.1 10/31/2015 Ot 794.31 10/31/2015 Ot 786.09 10/31/2015 Ot 786.50 10/31/2015 Ot 401.9 10/31/2015 Ot 785.1 10/31/2015 Ot 611.71 10/31/2015 Ot 401.9 10/31/2015 Ot 786.50 10/31/2015 Ot 272.4 10/31/2015 Ot 401.9 10/31/2015 Ot 780.79 10/31/2015 Ot 786.50 10/31/2015 MARY ANN DIAZ, GINNY Perez Ot 790.5 10/31/2015 MARY ANN DIAZ, GINNY Perez Ot E78.5 10/31/2015 MARY ANN DIAZ, GINNY Perez Ot I10 10/31/2015 MARY ANN DAIZ, GINNY Perez Ot R63.5 11/07/2015 MARY ANN DIAZ, GINNY Perez Ot E78.5 11/07/2015 MARY ANN DIAZ, GINNY A Ot I10 11/07/2015 MARY ANN DIAZ, GINNY Perez Ot R63.5 11/13/2015 ELBA SOTO Ot Z12.31 11/24/2015 GINNY REESE MD Ot R79.89 12/14/2015 Ot 424.0 12/14/2015 Ot 785.1 12/14/2015 Ot 794.31 12/14/2015 Ot 786.09 12/14/2015 Ot 786.50 12/14/2015 Ot 401.9 12/14/2015 Ot 785.1 12/14/2015 Ot 611.71 12/14/2015 Ot 401.9 12/14/2015 Ot 786.50 12/14/2015 Ot 272.4 12/14/2015 Ot 401.9 12/14/2015 Ot 780.79 12/14/2015 Ot 786.50 12/14/2015 MARY ANN DIAZ, GINNY Perez Ot 790.5 12/14/2015 ELBA SOTO Ot Z12.31 12/14/2015 GINNY REESE MD Ot E78.5 12/14/2015 GINNY REESE MD Ot I10 12/14/2015 GINNY REESE MD Ot R63.5 12/14/2015 GINNY REESE MD Ot R79.89 12/20/2015 GINNY REESE MD Ot R79.89 03/15/2016 GINNY REESE MD Ot R79.89 OTHER SPECIFIED ABNORMAL FINDINGS OF BLO 09/24/2016 Ot 424.0 MITRAL VALVE DISORDER 09/24/2016 Ot 785.1 PALPITATIONS 09/24/2016 Ot 794.31 ABNORM ELECTROCARDIOGRAM 09/24/2016 Ot 786.09 RESPIRATORY ABNORM NEC 09/24/2016 Ot 786.50 CHEST PAIN NOS 09/24/2016 Ot 401.9 HYPERTENSION NOS 09/24/2016 Ot 785.1 PALPITATIONS 09/24/2016 Ot 611.71 MASTODYNIA 09/24/2016 Ot 401.9 HYPERTENSION NOS 09/24/2016 Ot 786.50 CHEST PAIN NOS 09/24/2016 Ot 272.4 HYPERLIPIDEMIA NEC/NOS 09/24/2016 Ot 401.9 HYPERTENSION NOS 09/24/2016 Ot 780.79 OTH MALAISE FATIGUE 09/24/2016 Ot 786.50 CHEST PAIN NOS 09/24/2016 GINNY REESE MD Ot 790.5 ABN SERUM ENZY LEVEL NEC 09/24/2016 ELBA SOTO Ot Z12.31 ENCNTR SCREEN MAMMOGRAM FOR MALIGNANT NE 09/24/2016 GINNY REESE MD Ot E78.5 HYPERLIPIDEMIA, UNSPECIFIED 09/24/2016 GINNY REESE MD Ot I10 ESSENTIAL (PRIMARY) HYPERTENSION 09/24/2016 GINNY REESE MD Ot R63.5 ABNORMAL WEIGHT GAIN 09/24/2016 GINNY REESE MD Ot R79.89 OTHER SPECIFIED ABNORMAL FINDINGS OF BLO 09/24/2016 GINNY REESE MD Ot R79.89 OTHER SPECIFIED ABNORMAL FINDINGS OF BLO 09/24/2016 ASHLEY GRAVES APRN Ot E11.9 TYPE 2 DIABETES MELLITUS WITHOUT COMPLIC 09/24/2016 ASHLEY GRAVES APRN Ot H65.01 ACUTE SEROUS OTITIS MEDIA, RIGHT EAR 09/24/2016 ASHLEY GRAVES APRN Ot I10 ESSENTIAL (PRIMARY) HYPERTENSION 09/24/2016 GRAVES, PETER J UNDERPRESSER HAND Ot R42 DIZZINESS AND GIDDINESS 09/24/2016 ASHLEY GRAVES UNDERPRESSER HAND Ot Z79.899 OTHER DIRECTOR OF [facility] (CURRENT) DRUG THERAPY 09/24/2016 Ot 424.0 MITRAL VALVE DISORDER 09/24/2016 Ot 785.1 PALPITATIONS 09/24/2016 Ot 794.31 ABNORM ELECTROCARDIOGRAM 09/24/2016 Ot 786.09 RESPIRATORY ABNORM NEC 09/24/2016 Ot 786.50 CHEST PAIN NOS 09/24/2016 Ot 401.9 HYPERTENSION NOS 09/24/2016 Ot 785.1 PALPITATIONS 09/24/2016 Ot 611.71 MASTODYNIA 09/24/2016 Ot 401.9 HYPERTENSION NOS 09/24/2016 Ot 786.50 CHEST PAIN NOS 09/24/2016 Ot 272.4 HYPERLIPIDEMIA NEC/NOS 09/24/2016 Ot 401.9 HYPERTENSION NOS 09/24/2016 Ot 780.79 OTH MALAISE FATIGUE 09/24/2016 Ot 786.50 CHEST PAIN NOS 09/24/2016 GINNY REESE MD Ot 790.5 ABN SERUM ENZY LEVEL NEC 09/24/2016 ELBA SOTO Ot Z12.31 ENCNTR SCREEN MAMMOGRAM FOR MALIGNANT NE 09/24/2016 GINNY REESE MD Ot E78.5 HYPERLIPIDEMIA, UNSPECIFIED 09/24/2016 GINNY REESE MD Ot I10 ESSENTIAL (PRIMARY) HYPERTENSION 09/24/2016 GINNY REESE MD Ot R63.5 ABNORMAL WEIGHT GAIN 09/24/2016 GINNY REESE MD Ot R79.89 OTHER SPECIFIED ABNORMAL FINDINGS OF BLO 09/24/2016 GINNY REESE MD Ot R79.89 OTHER SPECIFIED ABNORMAL FINDINGS OF BLO 09/25/2016 ASHLEY GRAVES APRN Ot E11.9 TYPE 2 DIABETES MELLITUS WITHOUT COMPLIC 09/25/2016 ASHLEY GRAVES UNDERPRESSER HAND Ot H65.01 ACUTE SEROUS OTITIS MEDIA, RIGHT EAR 09/25/2016 ASHLEY GRAVES APRN Ot I10 ESSENTIAL (PRIMARY) HYPERTENSION 09/25/2016 ASHLEY GRAVES UNDERPRESSER HAND Ot R42 DIZZINESS AND GIDDINESS 09/25/2016 ASHLEY GRAVES APRN Ot Z79.899 OTHER [facility]OR OF [facility] (CURRENT) DRUG THERAPY 01/22/2017 MARISOL DIAZ, FRANK Perez Ot E27.9 DISORDER OF ADRENAL GLAND, UNSPECIFIED 01/22/2017 FRANK DAMON MD Ot I10 ESSENTIAL (PRIMARY) HYPERTENSION 01/22/2017 FRANK DAMON MD Ot R10.11 RIGHT UPPER QUADRANT PAIN 01/22/2017 FRANK DAMON MD Ot R11.2 NAUSEA WITH VOMITING, UNSPECIFIED 01/22/2017 FRANK DAMON MD Ot Z90.49 ACQUIRED ABSENCE OF OTHER SPECIFIED PART 01/23/2017 FRANK DAMON MD Ot E27.9 DISORDER OF ADRENAL GLAND, UNSPECIFIED 01/23/2017 FRANK DAMON MD Ot I10 ESSENTIAL (PRIMARY) HYPERTENSION 01/23/2017 FRANK DAMON MD Ot R10.11 RIGHT UPPER QUADRANT PAIN 01/23/2017 FRANK DAMON MD Ot R11.2 NAUSEA WITH VOMITING, UNSPECIFIED 01/23/2017 FRANK DAMON MD Ot Z90.49 ACQUIRED ABSENCE OF OTHER SPECIFIED PART 01/29/2017 Ot 786.09 RESPIRATORY ABNORM NEC 01/29/2017 Ot 786.50 CHEST PAIN NOS 01/29/2017 Ot 401.9 HYPERTENSION NOS 01/29/2017 Ot 785.1 PALPITATIONS 01/29/2017 Ot 611.71 MASTODYNIA 01/29/2017 Ot 401.9 HYPERTENSION NOS 01/29/2017 Ot 786.50 CHEST PAIN NOS 01/29/2017 Ot 272.4 HYPERLIPIDEMIA NEC/NOS 01/29/2017 Ot 401.9 HYPERTENSION NOS 01/29/2017 Ot 780.79 OTH MALAISE FATIGUE 01/29/2017 Ot 786.50 CHEST PAIN NOS 01/29/2017 GINNY REESE MD Ot 790.5 ABN SERUM ENZY LEVEL NEC 01/29/2017 ELBA SOTO Ot Z12.31 ENCNTR SCREEN MAMMOGRAM FOR MALIGNANT NE 01/29/2017 GINNY REESE MD Ot E78.5 HYPERLIPIDEMIA, UNSPECIFIED 01/29/2017 GINNY REESE MD Ot I10 ESSENTIAL (PRIMARY) HYPERTENSION 01/29/2017 GINNY REESE MD Ot R63.5 ABNORMAL WEIGHT GAIN 01/29/2017 GINNY REESE MD Ot R79.89 OTHER SPECIFIED ABNORMAL FINDINGS OF BLO 01/29/2017 GINNY REESE MD Ot R79.89 OTHER SPECIFIED ABNORMAL FINDINGS OF BLO 01/29/2017 GINNY REESE MD Ot E78.5 HYPERLIPIDEMIA, UNSPECIFIED 01/29/2017 GINNY REESE MD Ot I10 ESSENTIAL (PRIMARY) HYPERTENSION 01/29/2017 GINNY REESE MD Ot R63.5 ABNORMAL WEIGHT GAIN 01/29/2017 GINNY REESE MD Ot 790.5 ABN SERUM ENZY LEVEL NEC 01/29/2017 Ot 401.9 HYPERTENSION NOS 01/29/2017 Ot 786.50 CHEST PAIN NOS 01/29/2017 Ot 272.4 HYPERLIPIDEMIA NEC/NOS 01/29/2017 Ot 401.9 HYPERTENSION NOS 01/29/2017 Ot 780.79 OTH MALAISE FATIGUE 01/29/2017 Ot 786.50 CHEST PAIN NOS 01/29/2017 Ot 611.71 MASTODYNIA 01/29/2017 Ot 401.9 HYPERTENSION NOS 01/29/2017 Ot 785.1 PALPITATIONS 01/29/2017 Ot 786.09 RESPIRATORY ABNORM NEC 01/29/2017 Ot 786.50 CHEST PAIN NOS 01/29/2017 Ot 424.0 MITRAL VALVE DISORDER 01/29/2017 Ot 785.1 PALPITATIONS 01/29/2017 Ot 794.31 ABNORM ELECTROCARDIOGRAM 01/29/2017 Ot 611.71 MASTODYNIA 01/30/2017 FRANK DAMON MD Ot E27.9 DISORDER OF ADRENAL GLAND, UNSPECIFIED 01/30/2017 FRANK DAMON MD Ot I10 ESSENTIAL (PRIMARY) HYPERTENSION 01/30/2017 FRANK DAMON MD Ot R10.11 RIGHT UPPER QUADRANT PAIN 01/30/2017 FRANK DAMON MD Ot R11.2 NAUSEA WITH VOMITING, UNSPECIFIED 01/30/2017 FRANK DAMON MD Ot Z90.49 ACQUIRED ABSENCE OF OTHER SPECIFIED PART 02/05/2017 Ot 719.46 02/05/2017 Ot 719.42 02/05/2017 Ot V76.12 02/05/2017 Ot 571.8 CHRONIC LIVER DIS NEC 02/05/2017 Ot 575.8 DIS OF GALLBLADDER NEC 02/05/2017 Ot 611.71 MASTODYNIA 02/05/2017 Ot 424.0 MITRAL VALVE DISORDER 02/05/2017 Ot 785.1 PALPITATIONS 02/05/2017 Ot 794.31 ABNORM ELECTROCARDIOGRAM 02/05/2017 Ot 786.09 RESPIRATORY ABNORM NEC 02/05/2017 Ot 786.50 CHEST PAIN NOS 02/05/2017 Ot 401.9 HYPERTENSION NOS 02/05/2017 Ot 785.1 PALPITATIONS 02/05/2017 Ot 611.71 MASTODYNIA 02/05/2017 Ot 401.9 HYPERTENSION NOS 02/05/2017 Ot 786.50 CHEST PAIN NOS 02/05/2017 Ot 272.4 HYPERLIPIDEMIA NEC/NOS 02/05/2017 Ot 401.9 HYPERTENSION NOS 02/05/2017 Ot 780.79 OTH MALAISE FATIGUE 02/05/2017 Ot 786.50 CHEST PAIN NOS 02/05/2017 GINNY REESE MD Ot 790.5 ABN SERUM ENZY LEVEL NEC 02/05/2017 ELBA SOTO Ot Z12.31 ENCNTR SCREEN MAMMOGRAM FOR MALIGNANT NE 02/05/2017 GINNY REESE MD Ot E78.5 HYPERLIPIDEMIA, UNSPECIFIED 02/05/2017 GINNY REESE MD Ot I10 ESSENTIAL (PRIMARY) HYPERTENSION 02/05/2017 GINNY REESE MD Ot R63.5 ABNORMAL WEIGHT GAIN 02/05/2017 GINNY REESE MD Ot R79.89 OTHER SPECIFIED ABNORMAL FINDINGS OF BLO 02/05/2017 GINNY REESE MD Ot R79.89 OTHER SPECIFIED ABNORMAL FINDINGS OF BLO 02/10/2017 Ot 786.09 RESPIRATORY ABNORM NEC 02/10/2017 Ot 786.50 CHEST PAIN NOS 02/10/2017 Ot 401.9 HYPERTENSION NOS 02/10/2017 Ot 785.1 PALPITATIONS 02/10/2017 Ot 611.71 MASTODYNIA 02/10/2017 Ot 401.9 HYPERTENSION NOS 02/10/2017 Ot 786.50 CHEST PAIN NOS 02/10/2017 Ot 272.4 HYPERLIPIDEMIA NEC/NOS 02/10/2017 Ot 401.9 HYPERTENSION NOS 02/10/2017 Ot 780.79 OTH MALAISE FATIGUE 02/10/2017 Ot 786.50 CHEST PAIN NOS 02/10/2017 GINNY REESE MD Ot 790.5 ABN SERUM ENZY LEVEL NEC 02/10/2017 ELBA SOTOP Ot Z12.31 ENCNTR SCREEN MAMMOGRAM FOR MALIGNANT NE 02/10/2017 GINNY REESE MD Ot E78.5 HYPERLIPIDEMIA, UNSPECIFIED 02/10/2017 GINNY REESE MD Ot I10 ESSENTIAL (PRIMARY) HYPERTENSION 02/10/2017 GINNY REESE MD Ot R63.5 ABNORMAL WEIGHT GAIN 02/10/2017 GINNY REESE MD Ot R79.89 OTHER SPECIFIED ABNORMAL FINDINGS OF BLO 02/10/2017 GINNY REESE MD Ot R79.89 OTHER SPECIFIED ABNORMAL FINDINGS OF BLO 04/30/2017 IVON CROOKS MD Ot R74.0 NONSPEC ELEV OF LEVELS OF TRANSAMNS LA 04/30/2017 IVON CROOKS MD Ot R93.8 ABNORMAL FINDINGS ON DIAGNOSTIC IMAGING 07/25/2017 MARTINA GIBSON MD, Ot E78.00 PURE HYPERCHOLESTEROLEMIA, UNSPECIFIED 07/25/2017 MARTINA GIBSON MD, Ot I10 ESSENTIAL (PRIMARY) HYPERTENSION 07/25/2017 MARTINA GIBSON MD Ot R10.31 RIGHT LOWER QUADRANT PAIN 07/25/2017 MARTINA GIBSON MD Ot Z87.442 PERSONAL HISTORY OF URINARY CALCULI 07/25/2017 MARTINA GIBSON MD Ot Z90.710 ACQUIRED ABSENCE OF BOTH CERVIX AND UTER 08/01/2017 MARTINA GIBSON MD Ot E78.00 PURE HYPERCHOLESTEROLEMIA, UNSPECIFIED 08/01/2017 MARTINA GIBSON MD, Ot I10 ESSENTIAL (PRIMARY) HYPERTENSION 08/01/2017 MARTINA GIBSON MD Ot R10.31 RIGHT LOWER QUADRANT PAIN 08/01/2017 MARTINA GIBSON MD Ot Z87.442 PERSONAL HISTORY OF URINARY CALCULI 08/01/2017 MARTINA GIBSON MD Ot Z90.710 ACQUIRED ABSENCE OF BOTH CERVIX AND UTER 08/02/2017 MARTINA GIBSON MD Ot E78.00 PURE HYPERCHOLESTEROLEMIA, UNSPECIFIED 08/02/2017 MARTINA GIBSON MD, Ot I10 ESSENTIAL (PRIMARY) HYPERTENSION 08/02/2017 MARTINA GIBSON MD Ot R10.31 RIGHT LOWER QUADRANT PAIN 08/02/2017 MARTINA GIBSON MD Ot Z87.442 PERSONAL HISTORY OF URINARY CALCULI 08/02/2017 MARTINA GIBSON MD Ot Z90.710 ACQUIRED ABSENCE OF BOTH CERVIX AND UTER Procedures There is no data. Results Test Result Range Complete urinalysis with reflex to culture - 11/15/16 11:20 Urine color determination YELLOW NRG Urine clarity determination CLEAR NRG Urine pH measurement by test strip 8 5-9 Specific gravity of urine by test strip 1.010 1.016- 1.022 Urine protein assay by test strip, semi-quantitative NEGATIVE NEGATIVE Urine glucose detection by automated test strip NEGATIVE NEGATIVE Erythrocytes detection in urine sediment by light microscopy NEGATIVE NEGATIVE Urine ketones detection by automated test strip NEGATIVE NEGATIVE Urine nitrite detection by test strip NEGATIVE NEGATIVE Urine total bilirubin detection by test strip NEGATIVE NEGATIVE Urine urobilinogen measurement by automated test strip (mass/volume) NORMAL NORMAL Urine leukocyte esterase detection by dipstick NEGATIVE NEGATIVE Automated urine sediment erythrocyte count by microscopy (number/high power field) NONE NRG Automated urine sediment leukocyte count by microscopy (number/high power field ) NONE NRG Bacteria detection in urine sediment by light microscopy NEGATIVE NRG Squamous epithelial cells detection in urine sediment by light microscopy 2-5 NRG Crystals detection in urine sediment by light microscopy NONE NRG Casts detection in urine sediment by light microscopy NONE NRG Mucus detection in urine sediment by light microscopy NEGATIVE NRG Complete urinalysis with reflex to culture NO NRG Complete urinalysis with reflex to culture - 01/22/17 13:50 Urine color determination YELLOW NRG Urine clarity determination CLEAR NRG Urine pH measurement by test strip 6.5 5-9 Specific gravity of urine by test strip 1.005 1.016- 1.022 Urine protein assay by test strip, semi-quantitative NEGATIVE NEGATIVE Urine glucose detection by automated test strip NEGATIVE NEGATIVE Erythrocytes detection in urine sediment by light microscopy NEGATIVE NEGATIVE Urine ketones detection by automated test strip NEGATIVE NEGATIVE Urine nitrite detection by test strip NEGATIVE NEGATIVE Urine total bilirubin detection by test strip NEGATIVE NEGATIVE Urine urobilinogen measurement by automated test strip (mass/volume) NORMAL NORMAL Urine leukocyte esterase detection by dipstick NEGATIVE NEGATIVE Automated urine sediment erythrocyte count by microscopy (number/high power field) NONE NRG Automated urine sediment leukocyte count by microscopy (number/high power field ) NONE NRG Bacteria detection in urine sediment by light microscopy NEGATIVE NRG Squamous epithelial cells detection in urine sediment by light microscopy 2-5 NRG Crystals detection in urine sediment by light microscopy NONE NRG Casts detection in urine sediment by light microscopy NONE NRG Mucus detection in urine sediment by light microscopy NEGATIVE NRG Complete urinalysis with reflex to culture NO NRG Complete blood count (CBC) with automated white blood cell (WBC) differential - 01/22/17 14:19 Blood leukocytes automated count (number/volume) 5.9 10*3/uL 4.3-11.0 Blood erythrocytes automated count (number/volume) 4.30 10*6/uL 4.35-5.85 Venous blood hemoglobin measurement (mass/volume) 13.8 g/dL 11.5-16.0 Blood hematocrit (volume fraction) 40 % 35-52 Automated erythrocyte mean corpuscular volume 92 [foz_us] 80-99 Automated erythrocyte mean corpuscular hemoglobin (mass per erythrocyte) 32 pg 25-34 Automated erythrocyte mean corpuscular hemoglobin concentration measurement ( mass/volume) 35 g/dL 32-36 Automated erythrocyte distribution width ratio 12.4 % 10.0-14.5 Automated blood platelet count (count/volume) 214 10*3/uL 130-400 Automated blood platelet mean volume measurement 11.8 [foz_us] 7.4-10.4 Automated blood neutrophils/100 leukocytes 58 % 42-75 Automated blood lymphocytes/100 leukocytes 32 % 12-44 Blood monocytes/100 leukocytes 7 % 0-12 Automated blood eosinophils/100 leukocytes 2 % 0-10 Automated blood basophils/100 leukocytes 1 % 0-10 Blood neutrophils automated count (number/volume) 3.4 10*3 1.8-7.8 Blood lymphocytes automated count (number/volume) 1.9 10*3 1.0-4.0 Blood monocytes automated count (number/volume) 0.4 10*3 0.0-1.0 Automated eosinophil count 0.1 10*3/uL 0.0-0.3 Automated blood basophil count (count/volume) 0.1 10*3/uL 0.0-0.1 Comprehensive metabolic panel - 01/22/17 14:19 Serum or plasma sodium measurement (moles/volume) 140 mmol/L 135-145 Serum or plasma potassium measurement (moles/volume) 3.7 mmol/L 3.6-5.0 Serum or plasma chloride measurement (moles/volume) 104 mmol/L 98-107 Carbon dioxide 24 mmol/L 21-32 Serum or plasma anion gap determination (moles/volume) 12 mmol/L 5-14 Serum or plasma urea nitrogen measurement (mass/volume) 15 mg/dL 7-18 Serum or plasma creatinine measurement (mass/volume) 0.79 mg/dL 0.60-1.30 Serum or plasma urea nitrogen/creatinine mass ratio 19 NRG Serum or plasma creatinine measurement with calculation of estimated glomerular filtration rate > NRG Serum or plasma glucose measurement (mass/volume) 134 mg/dL 70-105 Serum or plasma calcium measurement (mass/volume) 9.8 mg/dL 8.5-10.1 Serum or plasma total bilirubin measurement (mass/volume) 0.5 mg/dL 0.1-1.0 Serum or plasma alkaline phosphatase measurement (enzymatic activity/volume) 87 U/L 40-136 Serum or plasma aspartate aminotransferase measurement (enzymatic activity/ volume) 107 U/L 5-34 Serum or plasma alanine aminotransferase measurement (enzymatic activity/volume ) 132 U/L 0-55 Serum or plasma protein measurement (mass/volume) 7.3 g/dL 6.4-8.2 Serum or plasma albumin measurement (mass/volume) 4.3 g/dL 3.2-4.5 Lipase - 01/22/17 14:19 Lipase 37 U/L 8-78 Serum or plasma ferritin measurement (mass/volume) - 02/10/17 16:21 Serum or plasma ferritin measurement (mass/volume) 540.0 % 15.0-150.0 Body fluid hepatitis B virus surface antigen detection - 02/10/17 16:21 Confirmatory quantitative serum or plasma hepatitis B virus surface antigen measurement Non-Reactive Non-Reactive Serum hepatitis C virus antibody assay (units/volume) - 02/10/17 16:21 Serum hepatitis C virus antibody detection Non-Reactive Non-Reactive Serum ceruloplasmin measurement - 02/10/17 16:21 Serum ceruloplasmin measurement 30 % 18-53 Complete urinalysis with reflex to culture - 07/25/17 12:55 Urine color determination YELLOW NRG Urine clarity determination CLEAR NRG Urine pH measurement by test strip 5 5-9 Specific gravity of urine by test strip 1.025 1.016- 1.022 Urine protein assay by test strip, semi-quantitative 1+ NEGATIVE Urine glucose detection by automated test strip NEGATIVE NEGATIVE Erythrocytes detection in urine sediment by light microscopy NEGATIVE NEGATIVE Urine ketones detection by automated test strip NEGATIVE NEGATIVE Urine nitrite detection by test strip NEGATIVE NEGATIVE Urine total bilirubin detection by test strip NEGATIVE NEGATIVE Urine urobilinogen measurement by automated test strip (mass/volume) 4 mg/dL NORMAL Urine leukocyte esterase detection by dipstick NEGATIVE NEGATIVE Automated urine sediment erythrocyte count by microscopy (number/high power field) NONE NRG Automated urine sediment leukocyte count by microscopy (number/high power field ) RARE NRG Bacteria detection in urine sediment by light microscopy NEGATIVE NRG Squamous epithelial cells detection in urine sediment by light microscopy 2-5 NRG Crystals detection in urine sediment by light microscopy PRESENT NRG Casts detection in urine sediment by light microscopy NONE NRG Mucus detection in urine sediment by light microscopy SMALL NRG Complete urinalysis with reflex to culture NO NRG Calcium oxalate crystals detection in urine sediment by light microscopy MODERATE NRG Complete blood count (CBC) with automated white blood cell (WBC) differential - 07/25/17 14:35 Blood leukocytes automated count (number/volume) 6.3 10*3/uL 4.3-11.0 Blood erythrocytes automated count (number/volume) 4.04 10*6/uL 4.35-5.85 Venous blood hemoglobin measurement (mass/volume) 13.0 g/dL 11.5-16.0 Blood hematocrit (volume fraction) 38 % 35-52 Automated erythrocyte mean corpuscular volume 94 [foz_us] 80-99 Automated erythrocyte mean corpuscular hemoglobin (mass per erythrocyte) 32 pg 25-34 Automated erythrocyte mean corpuscular hemoglobin concentration measurement ( mass/volume) 34 g/dL 32-36 Automated erythrocyte distribution width ratio 12.3 % 10.0-14.5 Automated blood platelet count (count/volume) 188 10*3/uL 130-400 Automated blood platelet mean volume measurement 11.9 [foz_us] 7.4-10.4 Automated blood neutrophils/100 leukocytes 62 % 42-75 Automated blood lymphocytes/100 leukocytes 30 % 12-44 Blood monocytes/100 leukocytes 6 % 0-12 Automated blood eosinophils/100 leukocytes 1 % 0-10 Automated blood basophils/100 leukocytes 1 % 0-10 Blood neutrophils automated count (number/volume) 3.9 10*3 1.8-7.8 Blood lymphocytes automated count (number/volume) 1.9 10*3 1.0-4.0 Blood monocytes automated count (number/volume) 0.4 10*3 0.0-1.0 Automated eosinophil count 0.1 10*3/uL 0.0-0.3 Automated blood basophil count (count/volume) 0.1 10*3/uL 0.0-0.1 Comprehensive metabolic panel - 07/25/17 14:35 Serum or plasma sodium measurement (moles/volume) 141 mmol/L 135-145 Serum or plasma potassium measurement (moles/volume) 3.7 mmol/L 3.6-5.0 Serum or plasma chloride measurement (moles/volume) 107 mmol/L 98-107 Carbon dioxide 26 mmol/L 21-32 Serum or plasma anion gap determination (moles/volume) 8 mmol/L 5-14 Serum or plasma urea nitrogen measurement (mass/volume) 16 mg/dL 7-18 Serum or plasma creatinine measurement (mass/volume) 0.77 mg/dL 0.60-1.30 Serum or plasma urea nitrogen/creatinine mass ratio 21 NRG Serum or plasma creatinine measurement with calculation of estimated glomerular filtration rate > NRG Serum or plasma glucose measurement (mass/volume) 118 mg/dL 70-105 Serum or plasma calcium measurement (mass/volume) 9.5 mg/dL 8.5-10.1 Serum or plasma total bilirubin measurement (mass/volume) 0.6 mg/dL 0.1-1.0 Serum or plasma alkaline phosphatase measurement (enzymatic activity/volume) 88 U/L 40-136 Serum or plasma aspartate aminotransferase measurement (enzymatic activity/ volume) 38 U/L 5-34 Serum or plasma alanine aminotransferase measurement (enzymatic activity/volume ) 58 U/L 0-55 Serum or plasma protein measurement (mass/volume) 7.3 g/dL 6.4-8.2 Serum or plasma albumin measurement (mass/volume) 4.2 g/dL 3.2-4.5 Encounters ACCT No. Visit Date/Time Discharge Status Pt. Type Provider Facility Loc./Unit Complaint [id number] 07/25/2017 12:48:00 07/25/2017 16:20:00 DIS Emergency ARTHUR DIAZ, MARTINA Peace [facility] ER RLQ ABD PAIN [id number] 02/10/2017 16:06:00 02/10/2017 23:59:59 CLS Outpatient VALERIY DIAZ, IVON Hansen [facility] LAB R74.0,R93.8 [id number] 01/22/2017 13:30:00 01/22/2017 16:30:00 DIS Emergency MARISOL DIAZ, FRANK Perez [facility] ER ABD PAIN [id number] 09/24/2016 11:08:00 09/24/2016 12:24:00 DIS Emergency ASHLEY GRAVES APRN [facility] ER DIZZINESS [id number] 12/14/2015 07:05:00 12/14/2015 23:59:59 CLS Outpatient [facility]ESE [facility] [facility] LAB ELEVATED LFT'S [id number] 11/09/2015 10:06:00 11/09/2015 23:59:59 CLS Outpatient GINNY REESE MD [facility] LAB LFT'S [id number] 10/31/2015 09:02:00 10/31/2015 23:59:59 CLS Outpatient ELBA SOTO [facility] RAD ROUTINE MAMMOGRAM SCREENING [id number] 10/19/2015 07:02:00 10/19/2015 23:59:59 CLS Outpatient GINNY REESE MD [facility] LAB HTN,HLP,WT GAIN [id number] 05/14/2015 04:55:00 05/14/2015 06:07:00 DIS Emergency ABILIO KEBEDE MD [facility] ER RT SIDE PAIN [id number] 03/18/2015 19:54:00 03/18/2015 23:13:00 DIS Emergency MARTÍNEZ ROYAL [facility] ER RT SIDE BACK PAIN [id number] 10/25/2014 09:31:00 10/25/2014 11:47:00 DIS Emergency FRANK DAMON MD [facility] ER RIGHT SIDE PAIN [id number] 10/17/2014 06:59:00 10/17/2014 23:59:59 CLS Outpatient GINNY REESE MD [facility] RAD ELEVATED LIVER ENZYMES [id number] 08/22/2013 19:15:00 08/22/2013 20:40:00 DIS Emergency ASHLEY GRAVES APRN [facility] ER LOWER BACK PAIN/ DIFFICULTY BREATHING [id number] 02/05/2017 15:12:00 Document Registration [id number] 02/05/2017 15:11:00 Document Registration [id number] 02/05/2017 15:11:00 Document Registration [id number] 02/05/2017 15:11:00 Document Registration [id number] 02/05/2017 15:11:00 Document Registration [id number] 10/17/2014 06:59:00 Document Registration [id number] 02/10/2013 11:23:00 Document Registration [id number] 01/08/2013 07:03:00 Document Registration [id number] 01/01/2013 08:52:00 Document Registration [id number] 02/05/2012 08:09:00 Document Registration [id number] 01/22/2012 08:07:00 Document Registration [id number] 08/20/2011 18:40:00 Document Registration [id number] 05/29/2011 09:43:00 Document Registration [id number] 07/16/2010 12:22:00 Document Registration [id number] 01/24/2010 08:13:00 Document Registration [id number] 09/14/2009 07:45:00 Document Registration [id number] 04/13/2009 14:59:00 Document Registration [id number] 04/12/2009 11:22:00 Document Registration [id number] 01/18/2009 09:09:00 Document Registration
[2017-11-28 16:35] LABS: BILIRUBIN,URINE NEGATIVE (NEGATIVE); CLARITY,URINE CLEAR; COLOR,URINE YELLOW; GLUCOSE, URINE (UA) NEGATIVE (NEGATIVE); KETONES,URINE NEGATIVE (NEGATIVE); LEUKOCYTE ESTERASE ,URINE NEGATIVE (NEGATIVE); NITRITE,URINE NEGATIVE (NEGATIVE); PH,URINE 6.5 (5-9); PROTEIN,URINE NEGATIVE (NEGATIVE); UROBILINOGEN,URINE NORMAL (NORMAL)
--- NOTE | 2017-11-28 17:06 | ED Abdominal Pain ---
General Chief Complaint: Abdominal/GI Problems Stated Complaint: ABD PAIN,WEAKNESS,N,V,D Nursing Triage Note: Pt c/o RLQ abd pain intermittently. Pt reports this problem is recurrent. Pt also c/o diarrhea, body aches and cough starting today. Sepsis Screen: No Definite Risk Source of Information: Patient Exam Limitations: No Limitations History of Present Illness Date Seen by Provider: Nov 28, 2017 Time Seen By Provider: 17:06 Allergies and Home Medications Allergies Coded Allergies: No Known Drug Allergies (Unverified , 02/28/09) Home Medications Losartan Potassium 25 Mg Tablet, 25 MG PO BID, (Reported) 25MG IN AM AND 50 IN PM Ondansetron 4 Mg Tab.rapdis, 4 MG SL Q4H PRN for NAUSEA/VOMITING, #10 Prescribed by: FRANK PECK on 01/22/17 1625 Past Mawiaro-Pwqhnm-Ivrabt Hx Patient Social History Recent Foreign Travel: No Contact w/Someone Who Travel: No Recent Infectious Disease Expo: No Recent Hopitalizations: No Immunizations Up To Date Tetanus Booster (TDap): Unknown Date of Influenza Vaccine: Aug 10, 2016 Seasonal Allergies Seasonal Allergies: No Surgeries History of Surgeries: Yes Surgeries: Gallbladder, Hysterectomy Cardiovascular Cardiac Disorders: High Cholesterol, Hypertension Reproductive System Hx Reproductive Disorders: No Sexually 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 Disease: 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 Genitourinary Genitourinary Disorders: Kidney Stones Family Medical History Significant Family History: No Pertinent Family Hx Physical Exam Vital Signs VS - Last 72 Hours, by Label 11/28/17 13:33 Temp 99.1 Pulse 55 Resp 18 B/P (MAP) 132/80 (97) Pulse Ox 95 O2 Delivery Room Air Capillary Refill : Less Than 3 Seconds Progress/Results/Core Measures Results/Orders Lab Results Laboratory Tests Test 11/28/17 16:26 Range/Units Urine Color YELLOW Urine Clarity CLEAR Urine pH 6.5 5-9 Urine Specific [place] 1.010 L 1.016-1.022 Urine Protein NEGATIVE NEGATIVE Urine Glucose (UA) NEGATIVE NEGATIVE Urine Ketones NEGATIVE NEGATIVE Urine Nitrite NEGATIVE NEGATIVE Urine Bilirubin NEGATIVE NEGATIVE Urine Urobilinogen NORMAL NORMAL MG/DL Urine Leukocyte Esterase NEGATIVE NEGATIVE Urine RBC (Auto) NEGATIVE NEGATIVE Urine RBC NONE /HPF Urine WBC NONE /HPF Urine Crystals NONE /LPF Urine Bacteria NONE /HPF Urine Casts NONE /LPF Urine Mucus SMALL H /LPF Urine Culture Indicated NO Micro Results Microbiology 11/28/17 Influenza Types A,B Antigen (JA) - Final, Complete My Orders Orders - MARTÍNEZ SANCHEZ Influenza A And B Antigens (11/28/17 17:22) Ibuprofen Tablet (Motrin Tablet) (11/28/17 17:22) Vital Signs/I&O Vital Sign - Last 12Hours 11/28/17 13:33 Temp 99.1 Pulse 55 Resp 18 B/P (MAP) 132/80 (97) Pulse Ox 95 O2 Delivery Room Air Blood Pressure Mean: 97 Departure Impression Impression: Primary Impression: Diarrhea Additional Impression: Upper respiratory infection Disposition: HOME, SELF-CARE Condition: Improved Departure-Patient Inst. Decision time for Depature: 18:02 Referrals: GINNY REESE MD (PCP/Family) Primary Care Physician Patient Instructions: Diarrhea in Adolescents and Adults, Flu, Adult (DC) Add. Discharge Instructions: All discharge instructions reviewed with patient and/or family. Voiced understanding. Medications as instructed. Tylenol extra strength over-the- counter as directed for pain or headache. Ibuprofen 800 mg by mouth every 8 hours as needed for pain or headache. Imodium jvms-mit-kodohrt as needed for diarrhea. Clear liquid diet until symptoms improve, then increase diet slowly to a low-fat, bland diet. Oowk-cfc-vevloam cough suppressants, antihistamines, decongestants if needed. Follow-up with your family practitioner for recheck as an outpatient if no improvement in symptoms. Return to the emergency department for worsened symptoms or any other concerns. Scripts Ondansetron (Zofran Odt) 8 Mg Tab.rapdis 8 MG PO Q6H Y for NAUSEA/VOMITING-1ST LINE, #10 TAB 0 Refills Prov: MARTÍNEZ SANCHEZ 11/28/17 Work/School Note: Work Release Form Date Seen in the Emergency Department: Nov 28, 2017 Return to Work: Nov 30, 2017 Restrictions: Return-No Fever (24hrs), Return-No Vomiting(24hrs) MARTÍNEZ SANCHEZ Nov 28, 2017 17:06
[2017-11-28] MEDS ORDERED: IBUPROFEN 800 MG (MOTRIN) TAB PO STA (17:22)
[2017-11-28] MEDS ORDERED: ONDA8TAB9 PO (18:04)
[2017-11-28 18:19] VITALS: BP 140/92
== END 2017-11-28 18:19 | disposition home or self-care (01) ==
LOC: EDUNIT# 13:03 → ER 13:06
DX: R19.7 Diarrhea, unspecified (principal); J06.9 Acute upper respiratory infection, unspecified; E78.00 Pure hypercholesterolemia, unspecified; I10 Essential (primary) hypertension; Z90.710 Acquired absence of both cervix and uterus; Z87.442 Personal history of urinary calculi
CPT/HCPCS: 81000; 87804; 99282

== ENCOUNTER 2017-12-01 14:34 | Emergency (ER) | payer OTHER ==
[~2017-12-01] VITALS: Ht 167.6 cm; Wt 81.6 kg
[~2017-12-01 14:34] MED LIST changes: +ONDA8TAB9 PO
--- OUTSIDE RECORDS SUMMARY | 2017-12-01 14:43 | XMS REPORT | Continuity of Care Document ---
Author Author [facility] Organization [facility] Address Unknown Phone Unavailable Allergies Active Description Code Type Severity Reaction Onset Reported/Identified Relationship to Patient Clinical Status Yes No Known Drug Allergies [id number] Drug Allergy Mild N/A 02/28/2009 Medications There is no data. Problems Date Dx Coded Attending Type Code Diagnosis Diagnosed By 07/16/2010 Ot 780.4 DIZZINESS AND GIDDINESS 07/16/2010 Ot 790.5 ABN SERUM ENZY LEVEL NEC 08/20/2011 Ot 789.03 ABDOMINAL PAIN, RIGHT LOWER QUADRANT 08/22/2013 ASHLEY GRAVES LEAD ARCHITECT Ot 599.0 URIN TRACT INFECTION NOS 08/22/2013 ASHLEY GRAVES LEAD ARCHITECT Ot 719.45 JOINT PAIN-PELVIS 08/22/2013 ASHLEY GRAVES LEAD ARCHITECT Ot 724.2 LUMBAGO 10/17/2014 Ot 571.8 10/17/2014 [...] GINNY Perez Ot I10 10/31/2015 MARY ANN DIAZ, GINNY Perez Ot R63.5 11/07/2015 MARY ANN [...] ESSENTIAL (PRIMARY) HYPERTENSION 09/24/2016 GRAVES, PETER J LEAD ARCHITECT Ot R42 DIZZINESS AND GIDDINESS 09/24/2016 ASHLEY GRAVES LEAD ARCHITECT Ot Z79.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 09/24/2016 Ot 424.0 MITRAL [...] DIABETES MELLITUS WITHOUT COMPLIC 09/25/2016 ASHLEY GRAVES LEAD ARCHITECT Ot H65.01 ACUTE SEROUS OTITIS MEDIA, RIGHT EAR 09/25/2016 ASHLEY GRAVES APRN Ot I10 ESSENTIAL (PRIMARY) HYPERTENSION 09/25/2016 ASHLEY GRAVES LEAD ARCHITECT Ot R42 DIZZINESS AND GIDDINESS 09/25/2016 ASHLEY GRAVES APRN Ot Z79.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 01/22/2017 MARISOL DIAZ, FRANK [...] R11.2 NAUSEA WITH VOMITING, UNSPECIFIED 01/30/2017 FRANK DAMNO MD Ot Z90.49 ACQUIRED ABSENCE OF OTHER [...] plasma albumin measurement (mass/volume) 4.2 g/dL 3.2-4.5 Complete urinalysis with reflex to culture - 11/28/17 16:26 Urine color determination YELLOW NRG Urine clarity [...] urine sediment by light microscopy NONE NRG Crystals detection in urine sediment by light microscopy NONE NRG Casts detection in urine sediment by light microscopy NONE NRG Mucus detection in urine sediment by light microscopy SMALL NRG Complete urinalysis with reflex to culture NO NRG Influenza virus A and B antigen detection - 11/28/17 17:30 FLU RESULT NEGATIVE FOR INFLUENZA A AND B ANTIGENS BY IA NRG Encounters ACCT No. Visit Date/Time Discharge Status Pt. Type Provider Facility Loc./Unit Complaint [id number] 11/28/2017 13:06:00 11/28/2017 18:19:00 DIS Emergency DANIEL PA, MARTÍNEZ Christine [facility] ER ABD PAIN,WEAKNESS,N,V, D [id number] 07/25/2017 12:48:00 07/25/2017 16:20:00 DIS Emergency MARTINA GIBSON MD [facility] ER RLQ ABD PAIN [id number] 02/10/2017 16:06:00 02/10/2017 23:59:59 CLS Outpatient VALERIY DIAZ, IVON Hansen [facility] LAB R74.0,R93.8 [id number] 01/22/2017 13:30:00 01/22/2017 16:30:00 DIS Emergency MARISOL DIAZ, FRANK Perez [facility] ER ABD PAIN [id number] 09/24/2016 11:08:00 09/24/2016 12:24:00 DIS Emergency ASHLEY GRAVES APRN [facility] ER DIZZINESS [id number] 12/14/2015 07:05:00 12/14/2015 23:59:59 CLS Outpatient GINNY REESE MD [facility] LAB ELEVATED LFT'S [id number] 11/09/2015 10:06:00 11/09/2015 23:59:59 CLS Outpatient GINNY REESE MD [facility] LAB LFT'S [id number] 10/31/2015 09:02:00 10/31/2015 23:59:59 CLS Outpatient ELBA SOTO [facility] RAD ROUTINE MAMMOGRAM SCREENING [id number] 10/19/2015 07:02:00 10/19/2015 23:59:59 CLS Outpatient GINNY REESE MD [facility] LAB HTN,HLP,WT GAIN [id number] 05/14/2015 04:55:00 05/14/2015 06:07:00 DIS Emergency BAILIO KEBEDE MD [facility] ER RT SIDE PAIN [id number] 03/18/2015 19:54:00 03/18/2015 23:13:00 DIS Emergency MARTÍNEZ ROYAL [facility] ER RT SIDE BACK PAIN [id number] 10/25/2014 09:31:00 10/25/2014 11:47:00 DIS Emergency MARISOL DIAZ, FRANK Perez [facility] ER RIGHT SIDE PAIN [id number] 10/17/2014 06:59:00 10/17/2014 23:59:59 CLS Outpatient GINNY REESE MD [facility] RAD ELEVATED LIVER ENZYMES [id number] 08/22/2013 19:15:00 08/22/2013 20:40:00 DIS Emergency ASHLEY GRAVES APRN [facility] ER LOWER BACK PAIN/ DIFFICULTY BREATHING [id number] 02/05/2017 15:12:00 Document Registration [id number] 02/05/2017 15:11:00 Document Registration [id number] 02/05/2017 15:11:00 Document Registration [id number] 02/05/2017 15:11:00 Document Registration [id number] 02/05/2017 15:11:00 Document Registration [id number] 10/17/2014 06:59:00 Document Registration [id number] 02/10/2013 11:23:00 Document Registration [id number] 01/08/2013 07:03:00 Document Registration [id number] 01/01/2013 08:52:00 Document Registration [id number] 02/05/2012 08:09:00 Document Registration [id number] 01/22/2012 08:07:00 Document Registration [id number] 08/20/2011 18:40:00 Document Registration [id number] 05/29/2011 09:43:00 Document Registration [id number] 07/16/2010 12:22:00 Document Registration [id number] 01/24/2010 08:13:00 Document Registration [id number] 09/14/2009 07:45:00 Document Registration [id number] 04/13/2009 14:59:00 Document Registration [id number] 04/12/2009 11:22:00 Document Registration [id number] 01/18/2009 09:09:00 Document Registration
[2017-12-01 18:02] LABS: BILIRUBIN,URINE NEGATIVE (NEGATIVE); CLARITY,URINE CLEAR; COLOR,URINE YELLOW; GLUCOSE, URINE (UA) NEGATIVE (NEGATIVE); KETONES,URINE NEGATIVE (NEGATIVE); LEUKOCYTE ESTERASE ,URINE NEGATIVE (NEGATIVE); NITRITE,URINE NEGATIVE (NEGATIVE); PH,URINE 6 (5-9); PROTEIN,URINE NEGATIVE (NEGATIVE); UROBILINOGEN,URINE NORMAL (NORMAL)
--- NOTE | 2017-12-01 18:42 | Diagnostic Imaging Report ---
Clinical indication: Patient with cough and fever since . Exam: Chest x-ray PA and lateral views. Comparisons: Chest x-ray dated 02/28/2009 Findings: Lungs/pleura: Lungs are clear. There is no pneumothorax. There is no pleural effusion. Mediastinum: Unremarkable. Pulmonary vasculature: Unremarkable. Heart: Unremarkable. Bones/extrathoracic soft tissue: Unremarkable. Impression: There is no radiographic evidence of acute cardiopulmonary process. Dictated by: Dictated on workstation # [id number]
[2017-12-01] MEDS ORDERED: ONDANSETRON 4 MG/2 ML (SDV) Z0FRAN ONE (18:46)
--- NOTE | 2017-12-01 19:05 | ED Cough/URI ---
General Chief Complaint: Cough/Cold/Flu Symptoms Stated Complaint: CHEST CONGESTION,COUGH Nursing Triage Note: ARRIVED VIA AMB TO TRIAGE ROOM. WAS HERE ON FRIDAY ET STATES HER CONGESTION IS WORSE. Exam Limitations: no limitations History of Present Illness Date Seen by Provider: Dec 01, 2017 Time Seen by Provider: 19:01 Initial Comments This 51-year-old white female presents with a history of cough congestion and general malaise for the last 4 days. Patient was seen in the emergency department on Friday and it was recommended that she use mzxy-ovs-uenmzvn agents for relief. She has tried this without improvement. Patient denies associated headache stiff neck or photophobia. She denies nausea vomiting or diarrhea. Patient has no chronic respiratory illnesses. Patient suffers from hypertension. Allergies and Home Medications Allergies Coded Allergies: No Known Drug Allergies (Unverified , 02/28/09) Home Medications Losartan Potassium 25 Mg Tablet, 25 MG PO BID, (Reported) 25MG IN AM AND 50 IN PM Ondansetron 4 Mg Tab.rapdis, 4 MG SL Q4H PRN for NAUSEA/VOMITING, #10 Prescribed by: FRANK PECK on 01/22/17 1625 Ondansetron 8 Mg Tab.rapdis, 8 MG PO Q6H PRN for NAUSEA/VOMITING-1ST LINE, #10 Ref 0 Prescribed by: MARTÍNEZ SANCHEZ on 11/28/17 1804 Constitutional: fever EENTM: No ear pain Respiratory: see HPI, cough, No short of breath Cardiovascular: No chest pain Gastrointestinal: No abdominal pain, No diarrhea, No nausea, No vomiting Genitourinary: no symptoms reported Musculoskeletal: no symptoms reported Skin: no symptoms reported Psychiatric/Neurological: No Symptoms Reported Hematologic/Lymphatic: No Symptoms Reported Immunological/Allergic: no symptoms reported Past Bwlrwfz-Mfzzir-Fofjaq Hx Patient Social History Alcohol Use: Denies Use Recreational Drug Use: No Smoking Status: Never a Smoker 2nd Hand Smoke Exposure: No Recent Foreign Travel: No Contact w/Someone Who Travel: No Recent Infectious Disease Expo: No Recent Hopitalizations: No Physical Abuse: No Sexual Abuse: No Mistreated: No Fear: No Immunizations Up To Date Tetanus Booster (TDap): Less than 5yrs Date of Influenza Vaccine: Aug 10, 2017 Seasonal Allergies Seasonal Allergies: No Surgeries History of Surgeries: Yes Surgeries: Gallbladder, Hysterectomy Respiratory History of Respiratory Disorde: No Cardiovascular History of Cardiac Disorders: Yes Cardiac Disorders: High Cholesterol, Hypertension Neurological History of Neurological Disord: No Reproductive System Hx Reproductive Disorders: No Sexually Transmitted Disease: No 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 Genitourinary Genitourinary Disorders: Kidney Stones Gastrointestinal History of Gastrointestinal Di: No Musculoskeletal History of Musculoskeletal Dis: No Endocrine History of Endocrine Disorders: No Endocrine Disorders: Diabetes, Non-Insulin dep Cancer History of Cancer: No Psychosocial History of Psychiatric Problem: No Suicide Risk Score: 1 Integumentary History of Skin or Integumenta: No Blood Transfusions History of Blood Disorders: No Reviewed Nursing Assessment Reviewed/Agree w Nursing PMH: Yes Family Medical History Significant Family History: No Pertinent Family Hx Physical Exam Vital Signs Vital Sign - Last 12Hours 12/01/17 16:27 Temp 99.7 Pulse 73 Resp 18 B/P (MAP) 137/88 (104) Pulse Ox 97 O2 Delivery Room Air Capillary Refill : Less Than 3 Seconds General Appearance: WD/WN Eyes: Bilateral Eye Normal Inspection HEENT: normal ENT inspection Neck: normal inspection Respiratory: chest non-tender, lungs clear, normal breath sounds, no respiratory distress Cardiovascular: regular rate, rhythm, no murmur Gastrointestinal: normal bowel sounds, non tender, soft Extremities: normal range of motion, non-tender, normal inspection Neurologic/Psychiatric: no motor/sensory deficits, alert, normal mood/affect Skin: normal color, warm/dry Progress/Results/Core Measures Suspected Sepsis Recent Fever Within 48 Hours: No Infection Criteria Present: None New/Unexplained Altered Menta: No Sepsis Screen: No Definite Risk Sepsis Diagnosis: SIRS Temperature:99.7 Pulse: 73 Respiratory Rate: 18 Blood Pressure 137 /88 Mean: 104 Results/Orders Lab Results Laboratory Tests Test 12/01/17 17:30 Range/Units Urine Color YELLOW Urine Clarity CLEAR Urine pH 6 5-9 Urine Specific [place] 1.015 L 1.016-1.022 Urine Protein NEGATIVE NEGATIVE Urine Glucose (UA) NEGATIVE NEGATIVE Urine Ketones NEGATIVE NEGATIVE Urine Nitrite NEGATIVE NEGATIVE Urine Bilirubin NEGATIVE NEGATIVE Urine Urobilinogen NORMAL NORMAL MG/DL Urine Leukocyte Esterase NEGATIVE NEGATIVE Urine RBC (Auto) NEGATIVE NEGATIVE Urine RBC NONE /HPF Urine WBC NONE /HPF Urine Squamous Epithelial Cells 2-5 /HPF Urine Crystals NONE /LPF Urine Bacteria NONE /HPF Urine Casts NONE /LPF Urine Mucus NEGATIVE /LPF Urine Culture Indicated NO Micro Results Microbiology 12/01/17 Influenza Types A,B Antigen (JA) - Final, Complete My Orders Orders - YULIANA CHU MD Ondansetron Injection (Zofran Injectio (12/01/17 18:46) Vital Signs/I&O Vital Sign - Last 12Hours 12/01/17 16:27 Temp 99.7 Pulse 73 Resp 18 B/P (MAP) 137/88 (104) Pulse Ox 97 O2 Delivery Room Air Capillary Refill : Less Than 3 Seconds Blood Pressure Mean: 104 Progress Note : Time: 19:06 Progress Note The patient's urinalysis, flu screen, and chest x-ray were unremarkable. I discussed with the patient and family treatment course of Tussionex for cough and Zithromax for the possibility of an early secondary bacterial infection. Patient was given a note to stay home from work for the next 3 days until this illness resolved. Departure Impression Impression: Primary Impression: Influenza-like symptoms Additional Impressions: Fever Qualified Codes: R50.9 - Fever, unspecified Cough Upper respiratory infection Qualified Codes: J06.9 - Acute upper respiratory infection, unspecified Disposition: 01 HOME, SELF-CARE Condition: Improved Departure-Patient Inst. Decision time for Depature: 19:08 Referrals: GINNY REESE MD (PCP/Family) Primary Care Physician Patient Instructions: Cough, Adult (DC), Cough, Runny Nose, and the Common Cold (DC) Add. Discharge Instructions: Testing and Z-Freddy as prescribed. Rest at home for 72 hours. Follow-up with your care tech if not improving in the next 24 hours. Return if any problems or questions All discharge instructions reviewed with patient and/or family. Voiced understanding. YULIANA CHU MD Dec 01, 2017 19:05
[2017-12-01 19:15] VITALS: BP 135/84
== END 2017-12-01 19:15 | disposition home or self-care (01) ==
LOC: EDUNIT# 14:34 → ER 14:35
DX: J11.1 Influenza due to unidentified influenza virus with other respiratory manifestations (principal); E11.9 Type 2 diabetes mellitus without complications; E78.00 Pure hypercholesterolemia, unspecified; I10 Essential (primary) hypertension; Z87.442 Personal history of urinary calculi; Z90.710 Acquired absence of both cervix and uterus
CPT/HCPCS: 71046; 81000; 87804; 99282

== ENCOUNTER → 2017-12-12 | Outpatient (CLI) | payer OTHER | LOC: RAD 15:34 | PROVIDERS: ATTEND Internal Medicine | DX: Z12.31 Encounter for screening mammogram for malignant neoplasm of breast (principal) | CPT/HCPCS: 77067 ==

== ENCOUNTER → 2018-02-23 | Outpatient (CLI) | payer OTHER ==
[2018-02-23 17:23] LABS: HEMOGLOBIN 13.1 G/DL (11.5-16.0); MEAN PLATELET VOLUME 11.3 FL (7.4-10.4); RED BLOOD COUNT 4.15 10^6/uL (4.35-5.85); RED CELL DISTRIBUTION WIDTH 12.6 % (10.0-14.5); WHITE BLOOD COUNT 5.3 10^3/uL (4.3-11.0)
== END ==
LOC: LAB 17:09
PROVIDERS: ATTEND Nurse Practitioner
DX: K92.1 Melena (principal)
CPT/HCPCS: 36415; 85027

== ENCOUNTER 2018-10-10 15:52 | Emergency (ER) | payer OTHER ==
[~2018-10-10] VITALS: Ht 167.6 cm; Wt 81.6 kg
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
--- OUTSIDE RECORDS SUMMARY | 2018-10-10 17:08 | XMS REPORT | Continuity of Care Document ---
Author Author [facility] Organization [facility] Address Unknown Phone Unavailable Allergies Active Description Code Type Severity Reaction Onset Reported/Identified Relationship to Patient Clinical Status Yes No Known Drug Allergies [id number] Drug Allergy Mild N/A 02/28/2009 Medications There is no data. Problems Date Dx Coded Attending Type Code Diagnosis Diagnosed By 07/16/2010 Ot 780.4 DIZZINESS AND GIDDINESS 07/16/2010 Ot 790.5 ABN SERUM ENZY LEVEL NEC 08/20/2011 Ot 789.03 ABDOMINAL PAIN, RIGHT LOWER QUADRANT 08/22/2013 ASHLEY GRAVES AGRONOMY SPECIALIST Ot 599.0 URIN TRACT INFECTION NOS 08/22/2013 ASHLEY GRAVES AGRONOMY SPECIALIST Ot 719.45 JOINT PAIN-PELVIS 08/22/2013 ASHLEY GRAVES AGRONOMY SPECIALIST Ot 724.2 LUMBAGO 10/17/2014 Ot 571.8 10/17/2014 [...] ESSENTIAL (PRIMARY) HYPERTENSION 09/24/2016 GRAVES, PETER J AGRONOMY SPECIALIST Ot R42 DIZZINESS AND GIDDINESS 09/24/2016 ASHLEY GRAVES AGRONOMY SPECIALIST Ot Z79.899 OTHER COLORING CHECKER (CURRENT) DRUG THERAPY 09/24/2016 Ot 424.0 MITRAL [...] DIABETES MELLITUS WITHOUT COMPLIC 09/25/2016 ASHLEY GRAVES AGRONOMY SPECIALIST Ot H65.01 ACUTE SEROUS OTITIS MEDIA, RIGHT EAR 09/25/2016 ASHLEY GRAVES APRN Ot I10 ESSENTIAL (PRIMARY) HYPERTENSION 09/25/2016 ASHLEY GRAVES AGRONOMY SPECIALIST Ot R42 DIZZINESS AND GIDDINESS 09/25/2016 ASHLEY GRAVES APRN Ot Z79.899 OTHER COLORING CHECKER (CURRENT) DRUG THERAPY 01/22/2017 MARISOL DIAZ, FRANK [...] R10.11 RIGHT UPPER QUADRANT PAIN 01/30/2017 FRANK DAOMN MD Ot R11.2 NAUSEA WITH VOMITING, UNSPECIFIED [...] MD, Ot I10 ESSENTIAL (PRIMARY) HYPERTENSION 08/01/2017 AMRTINA GIBSON MD Ot R10.31 RIGHT LOWER QUADRANT [...] ACQUIRED ABSENCE OF BOTH CERVIX AND UTER 11/28/2017 DANIEL PA, MARTÍNEZ L Ot E78.00 PURE HYPERCHOLESTEROLEMIA, UNSPECIFIED 11/28/2017 DANIEL KARENMADDIEEN L Ot I10 ESSENTIAL (PRIMARY) HYPERTENSION 11/28/2017 DANIEL KARENMARTÍNEZ L Ot J06.9 ACUTE UPPER RESPIRATORY INFECTION, UNSPE 11/28/2017 MADDIE ROYALEN L Ot R10.31 RIGHT LOWER QUADRANT PAIN 11/28/2017 DANIEL KARENMARTÍNEZ L Ot R19.7 DIARRHEA, UNSPECIFIED 11/28/2017 DANIEL JONES MARTÍNEZ L Ot Z87.442 PERSONAL HISTORY OF URINARY CALCULI 11/28/2017 DANIEL JONES MARTÍNEZ L Ot Z90.710 ACQUIRED ABSENCE OF BOTH CERVIX AND UTER 12/01/2017 DANIEL KARENMARTÍNEZ L Ot E78.00 PURE HYPERCHOLESTEROLEMIA, UNSPECIFIED 12/01/2017 DANIEL JONESMARTÍNEZ L Ot I10 ESSENTIAL (PRIMARY) HYPERTENSION 12/01/2017 DANIEL JONESMARTÍNEZ L Ot J06.9 ACUTE UPPER RESPIRATORY INFECTION, UNSPE 12/01/2017 DANIEL JONESMARTÍNEZ L Ot R10.31 RIGHT LOWER QUADRANT PAIN 12/01/2017 DANIEL JONESMARTÍNEZ L Ot R19.7 DIARRHEA, UNSPECIFIED 12/01/2017 DANIEL JONES MARTÍNEZ L Ot Z87.442 PERSONAL HISTORY OF URINARY CALCULI 12/01/2017 DANIEL JONES MARTÍNEZ Nanci Ot Z90.710 ACQUIRED ABSENCE OF BOTH CERVIX AND UTER 12/01/2017 KIMBERLEY DIAZ, YULIANA Spencer Ot E11.9 TYPE 2 DIABETES MELLITUS WITHOUT COMPLIC 12/01/2017 YULIANA CHU MD Ot E78.00 PURE HYPERCHOLESTEROLEMIA, UNSPECIFIED 12/01/2017 KIMBERLEY DIAZ, YULIANA Spencer Ot I10 ESSENTIAL (PRIMARY) HYPERTENSION 12/01/2017 KIMBERLEY DIAZ, YULIANA Spencer Ot J11.1 FLU DUE TO UNIDENTIFIED INFLUENZA VIRUS 12/01/2017 YULIANA CHU MD Ot R09.81 NASAL CONGESTION 12/01/2017 YULIANA CHU MD Ot Z87.442 PERSONAL HISTORY OF URINARY CALCULI 12/01/2017 YULIANA CHU MD Ot Z90.710 ACQUIRED ABSENCE OF BOTH CERVIX AND UTER 12/03/2017 YULIANA CHU MD Ot E11.9 TYPE 2 DIABETES MELLITUS WITHOUT COMPLIC 12/03/2017 KIMBERLEY DIAZ, YULIANA Spencer Ot E78.00 PURE HYPERCHOLESTEROLEMIA, UNSPECIFIED 12/03/2017 YULIANA CHU MD Ot I10 ESSENTIAL (PRIMARY) HYPERTENSION 12/03/2017 YULIANA CHU MD Ot J11.1 FLU DUE TO UNIDENTIFIED INFLUENZA VIRUS 12/03/2017 YULIANA CHU MD Ot R09.81 NASAL CONGESTION 12/03/2017 YULIANA CHU MD Ot Z87.442 PERSONAL HISTORY OF URINARY CALCULI 12/03/2017 YULIANA CHU MD Ot Z90.710 ACQUIRED ABSENCE OF BOTH CERVIX AND UTER 12/15/2017 YARA KEBEDE MD Ot Z12.31 ENCNTR SCREEN MAMMOGRAM FOR MALIGNANT NE 02/24/2018 GABRIELLE ROGEL APRN Ot K92.1 MELENA 07/06/2018 ASHLEY GRAVES APRN Ot E11.9 TYPE 2 DIABETES MELLITUS WITHOUT COMPLIC 07/06/2018 ASHLEY GRAVES APRN Ot E78.00 PURE HYPERCHOLESTEROLEMIA, UNSPECIFIED 07/06/2018 ASHLEY GRAVES APRN Ot I10 ESSENTIAL (PRIMARY) HYPERTENSION 07/06/2018 ASHLEY GRAVES APRN Ot R10.31 RIGHT LOWER QUADRANT PAIN 07/06/2018 ASHLEY GRAVES APRN Ot Z87.442 PERSONAL HISTORY OF URINARY CALCULI 07/06/2018 ASHLEY GRAVES APRN Ot Z90.710 ACQUIRED ABSENCE OF BOTH CERVIX AND UTER 07/08/2018 ASHLEY GRAVES APRN Ot E11.9 TYPE 2 DIABETES MELLITUS WITHOUT COMPLIC 07/08/2018 ASHLEY GRAVES APRN Ot E78.00 PURE HYPERCHOLESTEROLEMIA, UNSPECIFIED 07/08/2018 ASHLEY GRAVES APRN Ot I10 ESSENTIAL (PRIMARY) HYPERTENSION 07/08/2018 ASHLEY GRAVES APRN Ot R10.31 RIGHT LOWER QUADRANT PAIN 07/08/2018 ASHLEY GRAVES APRN Ot Z87.442 PERSONAL HISTORY OF URINARY CALCULI 07/08/2018 ASHLEY GRAVES APRN Ot Z90.710 ACQUIRED ABSENCE OF BOTH CERVIX AND UTER Procedures There is no data. Results Test Result Range Complete urinalysis with reflex to culture - 09/24/16 11:20 Urine color determination YELLOW NRG Urine [...] A AND B ANTIGENS BY IA NRG Complete urinalysis with reflex to culture - 12/01/17 17:30 Urine color determination YELLOW NRG Urine clarity determination CLEAR NRG Urine pH measurement by test strip 6 5-9 Specific gravity of urine by test strip 1.015 1.016- 1.022 Urine protein assay by test [...] urine sediment by light microscopy NONE NRG Squamous epithelial cells detection in urine sediment by light microscopy 2-5 NRG Crystals detection in urine sediment by light microscopy NONE NRG Casts detection in urine sediment by light microscopy NONE NRG Mucus detection in urine sediment by light microscopy NEGATIVE NRG Complete urinalysis with reflex to culture NO NRG Influenza virus A and B antigen detection - 12/01/17 17:46 FLU RESULT NEGATIVE FOR INFLUENZA A AND B ANTIGENS BY IA NRG Automated blood complete blood count (hemogram) panel - 02/23/18 17:15 Blood leukocytes automated count (number/volume) 5.3 10*3/uL 4.3-11.0 Blood erythrocytes automated count (number/volume) 4.15 10*6/uL 4.35-5.85 Venous blood hemoglobin measurement (mass/volume) 13.1 g/dL 11.5-16.0 Blood hematocrit (volume fraction) 39 % 35-52 Automated erythrocyte mean corpuscular volume 93 [foz_us] 80-99 Automated erythrocyte mean corpuscular hemoglobin (mass per erythrocyte) 32 pg 25-34 Automated erythrocyte mean corpuscular hemoglobin concentration measurement ( mass/volume) 34 g/dL 32-36 Automated erythrocyte distribution width ratio 12.6 % 10.0-14.5 Automated blood platelet count (count/volume) 203 10*3/uL 130-400 Automated blood platelet mean volume measurement 11.3 [foz_us] 7.4-10.4 Complete blood count (CBC) with automated white blood cell (WBC) differential - 07/06/18 12:01 Blood leukocytes automated count (number/volume) 6.0 10*3/uL 4.3-11.0 Blood erythrocytes automated count (number/volume) 4.33 10*6/uL 4.35-5.85 Venous blood hemoglobin measurement (mass/volume) 13.7 g/dL 11.5-16.0 Blood hematocrit (volume fraction) 40 % 35-52 Automated erythrocyte mean corpuscular volume 93 [foz_us] 80-99 Automated erythrocyte mean corpuscular hemoglobin (mass per erythrocyte) 32 pg 25-34 Automated erythrocyte mean corpuscular hemoglobin concentration measurement ( mass/volume) 34 g/dL 32-36 Automated erythrocyte distribution width ratio 12.5 % 10.0-14.5 Automated blood platelet count (count/volume) 201 10*3/uL 130-400 Automated blood platelet mean volume measurement 11.4 [foz_us] 7.4-10.4 Automated blood neutrophils/100 leukocytes 58 % 42-75 Automated blood lymphocytes/100 leukocytes 33 % 12-44 Blood monocytes/100 leukocytes 7 % 0-12 Automated blood eosinophils/100 leukocytes 1 % 0-10 Automated blood basophils/100 leukocytes 1 % 0-10 Blood neutrophils automated count (number/volume) 3.5 10*3 1.8-7.8 Blood lymphocytes automated count (number/volume) 2.0 10*3 1.0-4.0 Blood monocytes automated count (number/volume) 0.4 10*3 0.0-1.0 Automated eosinophil count 0.1 10*3/uL 0.0-0.3 Automated blood basophil count (count/volume) 0.0 10*3/uL 0.0-0.1 Comprehensive metabolic panel - 07/06/18 12:01 Serum or plasma sodium measurement (moles/volume) 139 mmol/L 135-145 Serum or plasma potassium measurement (moles/volume) 4.0 mmol/L 3.6-5.0 Serum or plasma chloride measurement (moles/volume) 105 mmol/L 98-107 Carbon dioxide 26 mmol/L 21-32 Serum or plasma anion gap determination (moles/volume) 8 mmol/L 5-14 Serum or plasma urea nitrogen measurement (mass/volume) 15 mg/dL 7-18 Serum or plasma creatinine measurement (mass/volume) 0.82 mg/dL 0.60-1.30 Serum or plasma urea nitrogen/creatinine mass ratio 18 NRG Serum or plasma creatinine measurement with calculation of estimated glomerular filtration rate > NRG Serum or plasma glucose measurement (mass/volume) 107 mg/dL 70-105 Serum or plasma calcium measurement (mass/volume) 9.8 mg/dL 8.5-10.1 Serum or plasma total bilirubin measurement (mass/volume) 0.5 mg/dL 0.1-1.0 Serum or plasma alkaline phosphatase measurement (enzymatic activity/volume) 102 U/L 40-136 Serum or plasma aspartate aminotransferase measurement (enzymatic activity/ volume) 66 U/L 5-34 Serum or plasma alanine aminotransferase measurement (enzymatic activity/volume ) 91 U/L 0-55 Serum or plasma protein measurement (mass/volume) 7.8 g/dL 6.4-8.2 Serum or plasma albumin measurement (mass/volume) 4.5 g/dL 3.2-4.5 CALCIUM CORRECTED 9.4 mg/dL 8.5-10.1 Complete urinalysis with reflex to culture - 07/06/18 12:09 Urine color determination YELLOW NRG Urine clarity determination CLEAR NRG Urine pH measurement by test strip 5 5-9 Specific gravity of urine by test strip 1.015 1.016- 1.022 Urine protein assay by test [...] urobilinogen measurement by automated test strip (mass/volume) 1 mg/dL NORMAL Urine leukocyte esterase detection by dipstick NEGATIVE NEGATIVE Automated urine sediment erythrocyte count by microscopy (number/high power field) NONE NRG Automated urine sediment leukocyte count by microscopy (number/high power field ) NONE NRG Bacteria detection in urine sediment by light microscopy NEGATIVE NRG Squamous epithelial cells detection in urine sediment by light microscopy 5-10 NRG Crystals detection in urine sediment by light microscopy NONE NRG Casts detection in urine sediment by light microscopy NONE NRG Mucus detection in urine sediment by light microscopy NEGATIVE NRG Complete urinalysis with reflex to culture NO NRG Encounters ACCT No. Visit Date/Time Discharge Status Pt. Type Provider Facility Loc./Unit Complaint [id number] 07/06/2018 11:52:00 07/06/2018 13:40:00 DIS Emergency ASHLEY GRAVES APRN [facility] ER LOWER BACK PAIN RADIATING TO RIGHT SIDE [id number] 02/23/2018 17:09:00 02/23/2018 23:59:59 CLS Outpatient GABRIELLE ROGEL APRN [facility] LAB BLOOD W/ STOOL [id number] 12/12/2017 15:34:00 12/12/2017 23:59:59 CLS Outpatient YARA KEBEDE MD [facility] RAD SCREENING [id number] 12/01/2017 14:35:00 12/01/2017 19:15:00 DIS Emergency KIMBERLEY DIAZ, YULIANA Spencer [facility] ER CHEST CONGESTION,COUGH [id number] 11/28/2017 13:06:00 11/28/2017 18:19:00 DIS Emergency MARTÍNEZ ROAYL [facility] ER ABD PAIN,WEAKNESS,N,V, D [id number] 07/25/2017 12:48:00 07/25/2017 16:20:00 DIS Emergency MARTINA GIBSON MD [facility] ER RLQ ABD PAIN [id number] 02/10/2017 16:06:00 02/10/2017 23:59:59 CLS Outpatient VALERIY DIAZ, IVON Hansen [facility] LAB R74.0,R93.8 [id number] 01/22/2017 13:30:00 01/22/2017 16:30:00 DIS Emergency MARISOL DIAZ, FRANK Perez [facility] ER ABD PAIN [id number] 09/24/2016 11:08:00 09/24/2016 12:24:00 DIS Emergency ASHLEY GRAVES APRN [facility] ER DIZZINESS [id number] 12/14/2015 07:05:00 12/14/2015 23:59:59 CLS Outpatient MARY ANN DIAZ, GINNY Perez [facility] LAB ELEVATED LFT'S [id number] 11/09/2015 10:06:00 11/09/2015 23:59:59 CLS Outpatient GINNY REESE MD [facility] LAB LFT'S [id number] 10/31/2015 09:02:00 10/31/2015 23:59:59 CLS Outpatient CHARLES ELBAANA UMANA [facility] RAD ROUTINE MAMMOGRAM SCREENING [id number] 10/19/2015 07:02:00 10/19/2015 23:59:59 CLS Outpatient GINNY REESE MD [facility] LAB HTN,HLP,WT GAIN [id number] 05/14/2015 04:55:00 05/14/2015 06:07:00 DIS Emergency ABILIO KEBEDE MD [facility] ER RT SIDE PAIN [id number] 03/18/2015 19:54:00 03/18/2015 23:13:00 DIS Emergency MARTÍNEZ ROYAL [facility] ER RT SIDE BACK PAIN [id number] 10/25/2014 09:31:00 10/25/2014 11:47:00 DIS Emergency FRANK DAMON MD [facility] ER RIGHT SIDE PAIN [id number] 10/17/2014 06:59:00 10/17/2014 23:59:59 CLS Outpatient GINNY REESE MD [facility] RAD ELEVATED LIVER ENZYMES [id number] 08/22/2013 19:15:00 08/22/2013 20:40:00 DIS Emergency ASHLEY GRAVES APRN [facility] ER LOWER BACK PAIN/ DIFFICULTY BREATHING [id number] 02/05/2017 15:12:00 Document Registration [id number] 02/05/2017 15:11:00 Document Registration [id number] 02/05/2017 15:11:00 Document Registration [id number] 02/05/2017 15:11:00 Document Registration [id number] 02/05/2017 15:11:00 Document Registration [id number] 10/17/2014 06:59:00 Document Registration [id number] 02/10/2013 11:23:00 Document Registration [id number] 01/08/2013 07:03:00 Document Registration [id number] 01/01/2013 08:52:00 Document Registration [id number] 02/05/2012 08:09:00 Document Registration [id number] 01/22/2012 08:07:00 Document Registration [id number] 08/20/2011 18:40:00 Document Registration [id number] 05/29/2011 09:43:00 Document Registration [id number] 07/16/2010 12:22:00 Document Registration [id number] 01/24/2010 08:13:00 Document Registration [id number] 09/14/2009 07:45:00 Document Registration [id number] 04/13/2009 14:59:00 Document Registration [id number] 04/12/2009 11:22:00 Document Registration [id number] 01/18/2009 09:09:00 Document Registration
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
[2018-10-10] MEDS ORDERED: ORPHENADRINE 60 MG/2 ML (NORFLEX) AMP IM ONE (17:45)
[2018-10-10 18:01] VITALS: BP 156/94
== END 2018-10-10 18:01 | disposition home or self-care (01) ==
LOC: EDUNIT# 15:52 → ER 15:53
DX: S13.4XXA Sprain of ligaments of cervical spine, initial encounter (principal); E78.00 Pure hypercholesterolemia, unspecified; E11.9 Type 2 diabetes mellitus without complications; I10 Essential (primary) hypertension; Z90.710 Acquired absence of both cervix and uterus; Z87.442 Personal history of urinary calculi; V89.2XXA Person injured in unspecified motor-vehicle accident, traffic, initial encounter
CPT/HCPCS: 72125; 96372

== ENCOUNTER → 2018-12-31 | Outpatient (CLI) | payer OTHER ==
[2018-12-31 17:15] LABS: BASOPHILS # (AUTO) 0.1 10^3/uL (0.0-0.1); BASOPHILS % (AUTO) 1 % (0-10); EOSINOPHILS # (AUTO) 0.1 10^3/uL (0.0-0.3); EOSINOPHILS % (AUTO) 1 % (0-10); HEMATOCRIT 39 % (35-52); HEMOGLOBIN 13.1 G/DL (11.5-16.0); LYMPHOCYTES # (AUTO) 1.9 X 10^3 (1.0-4.0); LYMPHOCYTES % (AUTO) 33 % (12-44); MEAN CORPUSCULAR HGB CONC 34 G/DL (32-36); MEAN CORPUSCULAR VOLUME 93 FL (80-99); MEAN PLATELET VOLUME 11.3 FL (7.4-10.4); MONOCYTES # (AUTO) 0.4 X 10^3 (0.0-1.0); MONOCYTES % (AUTO) 8 % (0-12); NEUTROPHILS # (AUTO) 3.3 X 10^3 (1.8-7.8); NEUTROPHILS % (AUTO) 58 % (42-75); PLATELET COUNT 206 10^3/uL (130-400); RED CELL DISTRIBUTION WIDTH 12.4 % (10.0-14.5); WHITE BLOOD COUNT 5.8 10^3/uL (4.3-11.0)
[2018-12-31 17:20] LABS: MEAN CORPUSCULAR HEMOGLOBIN 31 PG (25-34)
[2018-12-31 17:44] LABS: ALANINE AMINOTRANSFERASE 94 U/L (0-55); ALBUMIN 4.2 GM/DL (3.2-4.5); ALKALINE PHOSPHATASE 102 U/L (40-136); AMYLASE 61 U/L (25-125); BILIRUBIN,DIRECT 0.2 MG/DL (0.0-0.3); BILIRUBIN,INDIRECT 0.2 MG/DL; BILIRUBIN,TOTAL 0.4 MG/DL (0.1-1.0); BUN/CREATININE RATIO 22; CARBON DIOXIDE 26 MMOL/L (21-32); CHLORIDE 106 MMOL/L (98-107); CREATININE SERUM 0.78 MG/DL (0.60-1.30); GFR ESTIMATED > 60; GLUCOSE 115 MG/DL (70-105); LIPASE 39 U/L (8-78); POTASSIUM 3.9 MMOL/L (3.6-5.0); SODIUM 141 MMOL/L (135-145); TOTAL PROTEIN 7.3 GM/DL (6.4-8.2)
== END ==
LOC: LAB 16:55
PROVIDERS: ATTEND Nurse Practitioner
DX: R10.11 Right upper quadrant pain (principal)
CPT/HCPCS: 36415; 80048; 80076; 82150; 83690; 85025

== ENCOUNTER → 2019-01-01 | Outpatient (CLI) | payer OTHER ==
--- NOTE | 2019-01-01 14:07 | Diagnostic Imaging Report ---
EXAM: ABDOMEN COMPLETE ULTRASOUND DATE: January 01, 2019. COMPARISON: CT abdomen and pelvis July 06, 2018. INDICATION: 53-year-old female, abdominal pain. PROCEDURE: Two-dimensional ultrasound examination of the abdomen is performed. FINDINGS: Liver: The liver is diffusely increased in echogenicity consistent with diffuse fatty infiltration of the liver. There is no sonographically demonstrated solid or cystic liver mass. Bile ducts and gallbladder: The gallbladder is not seen and may be surgically absent. There is no intrahepatic bile duct dilation. The common bile duct is not well seen. Spleen: The spleen is normal. Right kidney: The right kidney is of normal size and contour with good corticomedullary differentiation. There are no shadowing calculi or cortical deforming solid or cystic masses. No hydronephrosis. The right kidney measures 9.0 cm x 3.9 cm x 5.5 cm. Left kidney: The left kidney is of normal size and contour with good corticomedullary differentiation. There are no shadowing calculi or cortical deforming solid or cystic masses. No hydronephrosis. The left kidney measures 10.0 cm x 5.8 cm x 6.6 cm. Pancreas: The pancreas is not well seen. Aorta: The visualized portions of the aorta are unremarkable in caliber. Inferior vena cava: The inferior vena cava is of normal caliber. IMPRESSION: 1. Diffuse fatty infiltration of the liver. 2. The common bile duct and pancreas are not well seen. 3. Additional complete abdominal ultrasound assessment is unremarkable. Dictated by: Dictated on workstation # [id number]
== END ==
LOC: RAD 12:56
PROVIDERS: ATTEND Nurse Practitioner
DX: K76.0 Fatty (change of) liver, not elsewhere classified (principal)
CPT/HCPCS: 76700

== ENCOUNTER → 2019-01-20 | Outpatient (CLI) | payer OTHER ==
--- NOTE | 2019-01-21 20:15 | Diagnostic Imaging Report ---
INDICATION: Routine screening. Comparison is made with prior mammograms from 12/12/2017 and 10/31/2015. 2-D and 3-D bilateral screening mammography was performed with Computer-Aided Detection (CAD) system. FINDINGS: Scattered fibroglandular densities are identified bilaterally. The parenchymal pattern is stable. No mass or malignant-appearing microcalcifications are seen. The axillae are unremarkable. IMPRESSION: No mammographic features suspicious for malignancy are identified. ACR BI-RADS Category 1: Negative. Result letter will be mailed to the patient. Note: At least 10% of breast cancer is not imaged by mammography. Dictated by: Dictated on workstation # [id number]
== END ==
LOC: RAD 15:22
PROVIDERS: ATTEND Internal Medicine
DX: Z12.31 Encounter for screening mammogram for malignant neoplasm of breast (principal)
CPT/HCPCS: 77067

== ENCOUNTER → 2019-04-13 | Outpatient (CLI) | payer OTHER ==
[2019-04-13 07:27] LABS: BASOPHILS % (AUTO) 1 % (0-10); EOSINOPHILS # (AUTO) 0.1 10^3/uL (0.0-0.3); EOSINOPHILS % (AUTO) 2 % (0-10); HEMATOCRIT 38 % (35-52); HEMOGLOBIN 12.8 G/DL (11.5-16.0); LYMPHOCYTES # (AUTO) 1.8 X 10^3 (1.0-4.0); LYMPHOCYTES % (AUTO) 36 % (12-44); MEAN CORPUSCULAR HEMOGLOBIN 31 PG (25-34); MEAN CORPUSCULAR HGB CONC 33 G/DL (32-36); MEAN CORPUSCULAR VOLUME 94 FL (80-99); MEAN PLATELET VOLUME 11.1 FL (7.4-10.4); MONOCYTES # (AUTO) 0.4 X 10^3 (0.0-1.0); MONOCYTES % (AUTO) 7 % (0-12); NEUTROPHILS # (AUTO) 2.8 X 10^3 (1.8-7.8); NEUTROPHILS % (AUTO) 55 % (42-75); PLATELET COUNT 178 10^3/uL (130-400); RED CELL DISTRIBUTION WIDTH 12.6 % (10.0-14.5); WHITE BLOOD COUNT 5.1 10^3/uL (4.3-11.0)
[2019-04-13 07:47] LABS: ALANINE AMINOTRANSFERASE 51 U/L (0-55); ALBUMIN 4.2 GM/DL (3.2-4.5); ALKALINE PHOSPHATASE 92 U/L (40-136); BILIRUBIN,TOTAL 0.4 MG/DL (0.1-1.0); BUN/CREATININE RATIO 19; CALCIUM 9.6 MG/DL (8.5-10.1); CARBON DIOXIDE 26 MMOL/L (21-32); CHLORIDE 106 MMOL/L (98-107); CHOLESTEROL 279 MG/DL (< 200); CREATININE SERUM 0.81 MG/DL (0.60-1.30); GFR ESTIMATED > 60; GLUCOSE 126 MG/DL (70-105); HDL CHOLESTEROL 38 MG/DL (40-60); SODIUM 140 MMOL/L (135-145); TRIGLYCERIDES 162 MG/DL (<150); VLDL CHOLESTEROL 32 MG/DL (5-40)
== END ==
LOC: LAB 07:13
PROVIDERS: ATTEND Internal Medicine
DX: Z00.00 Encounter for general adult medical examination without abnormal findings (principal); I10 Essential (primary) hypertension; K74.69 Other cirrhosis of liver; R94.5 Abnormal results of liver function studies; Z79.899 Other long term (current) drug therapy
CPT/HCPCS: 36415; 80053; 80061; 84443; 85025

== ENCOUNTER 2019-07-25 13:02 | Emergency (ER) | payer OTHER ==
[~2019-07-25] VITALS: Ht 65 cm; Wt 83.0 kg
[2019-07-25] MEDS ORDERED: SCOPOLAMINE 1.5 MG (TRANSDERM-SCOP) PATCH TD ONE (13:30)
[2019-07-25] MEDS ORDERED: MECLIZINE 25 MG (ANTIVERT) TAB PO ONE (13:30)
--- NOTE | 2019-07-25 13:31 | ED General ---
General Chief Complaint: Dizziness/Syncope Stated Complaint: DIZZINESS/WEAK Nursing Triage Note: DIZZINESS STARTING ON FRIDAY THAT IS WORSE TODAY. Nursing Sepsis Screen: No Definite Risk Source of Information: Patient History of Present Illness Date Seen by Provider: Jul 25, 2019 Time Seen by Provider: 13:15 Initial Comments PT ARRIVES VIA POV FROM HOME C/O DIZZINESS SINCE FRIDAY DOES NOT RECALL IF SHE WOKE UP WITH IT, OR IF IT DEVELOPED LATER IN THE DAY STATES IT IS MOSTLY WITH MOVING HER HEAD OR BENDING OVER C/O SLIGHT HEADACHE C/O SLIGHT NAUSEA WHEN SHE GETS DIZZY C/O SLIGHT SHORTNESS OF BREATH NO CHEST PAIN NO VISION CHANGES NO PARESTHESIAS OR MOTOR DEFICITS NO SYNCOPE NO CHANGES IN HEARING HAS OCCASIONAL PALPITATIONS WITH THE DIZZINESS--HAS HAD BEFORE HAS HISTORY OF SAME--STATES "IT'S USUALLY WORSE AND THE ROOM SPINS"--IS NOT BAD SHE HAS HAD IN THE PAST DOES NOT TAKE MEDICATION FOR DIZZINESS NO MEDICATION CHANGES, NO MISSED DOSES OF MEDICATIONS STATES SHE HAD A COLD 2 WEEKS AGO, THOSE SYMPTOMS RESOLVED WITHOUT TREATMENT PCP: DR. KEBEDE Allergies and Home Medications Allergies Coded Allergies: No Known Drug Allergies (Unverified , 02/28/09) Home Medications Losartan Potassium 25 Mg Tablet, 25 MG PO BID, (Reported) 25MG IN AM AND 50 IN PM Review of Systems Review of Systems Constitutional: see HPI; No chills, No diaphoresis; dizziness; No fever; weakness EENTM: no symptoms reported; No hearing loss, No ear pain, No blurred vision, No nose congestion Respiratory: see HPI, short of breath Cardiovascular: see HPI; No chest pain, No edema; palpitations; No syncope Gastrointestinal: see HPI; No abdominal pain, No diarrhea; nausea; No vomiting Genitourinary: no symptoms reported Musculoskeletal: no symptoms reported Skin: no symptoms reported Psychiatric/Neurological: See HPI, Headache; Denies Numbness, Denies Paresthesia, Denies Seizure, Denies Tingling, Denies Tremors, Denies Weakness Hematologic/Lymphatic: No Symptoms Reported Immunological/Allergic: no symptoms reported Past Wtjkcpo-Ypxcgy-Vciqnn Hx Past Med/Social Hx: Reviewed and Corrections made Patient Social History Alcohol Use: Denies Use Recreational Drug Use: No Smoking Status: Never a Smoker 2nd Hand Smoke Exposure: No Recent Foreign Travel: No Contact w/Someone Who Travel: No Recent Infectious Disease Expo: No Recent Hopitalizations: No Immunizations Up To Date Tetanus Booster (TDap): Less than 5yrs Date of Influenza Vaccine: Aug 10, 2017 Seasonal Allergies Seasonal Allergies: No Past Medical History Surgeries: Yes (HYST/BSO; LEFT KNEE SURGERY; RIGHT ELBOW SURGERY) Gallbladder, Hysterectomy, Oophorectomy, Orthopedic Respiratory: No Cardiac: Yes High Cholesterol, Hypertension Neurological: No Vertigo Reproductive Disorders: No Female Reproductive Disorders: Denies 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 oz. 81.381951xa; 196.00 BMI Method:Stated General Appearance: No Apparent Distress, WD/WN HEENT: PERRL/EOMI, TMs Normal, Normal ENT Inspection, Pharynx Normal Neck: Full Range of Motion, Normal Inspection, Non Tender, Supple; No Carotid Bruit, No JVD Respiratory: Normal Breath Sounds, No Accessory Muscle Use, No Respiratory Distress Cardiovascular: Regular Rate, Rhythm, No Edema, No JVD, No Murmur, Normal Peripheral Pulses Gastrointestinal: Non Tender, Soft Back: No CVA Tenderness Extremity: Normal Capillary Refill, Normal Inspection, Normal Range of Motion, Non Tender, No Calf Tenderness, No Pedal Edema Neurologic/Psychiatric: Alert, Oriented x3, No Motor/Sensory Deficits, Normal Mood/Affect, environmental web crawler II-XII Norm as Tested; No Abnormal Gait Skin: Normal Color, Warm/Dry Progress/Results/Core Measures Suspected Sepsis Recent Fever Within 48 Hours: No Infection Criteria Present: None New/Unexplained Altered Menta: No Sepsis Screen: No Definite Risk SIRS Temperature: Pulse: 81 Respiratory Rate: 16 Laboratory Tests 07/25/19 13:35: White Blood Count 6.0 Blood Pressure 166 /100 Mean: 122 Laboratory Tests 07/25/19 13:35: Creatinine 0.81, INR Comment 1.0, Platelet Count 194, Total Bilirubin 0.4 Results/Orders Lab Results Laboratory Tests Test 07/25/19 13:35 07/25/19 13:47 Range/Units White Blood Count 6.0 4.3-11.0 10^3/uL Red Blood Count 4.17 L 4.35-5.85 10^6/uL Hemoglobin 13.4 11.5-16.0 G/DL Hematocrit 39 35-52 % Mean Corpuscular Volume 94 80-99 FL Mean Corpuscular Hemoglobin 32 25-34 PG Mean Corpuscular Hemoglobin Concent 34 32-36 G/DL Red Cell Distribution Width 12.3 10.0-14.5 % Platelet Count 194 130-400 10^3/uL Mean Platelet Volume 11.6 H 7.4-10.4 FL Neutrophils (%) (Auto) 66 42-75 % Lymphocytes (%) (Auto) 24 12-44 % Monocytes (%) (Auto) 8 0-12 % Eosinophils (%) (Auto) 2 0-10 % Basophils (%) (Auto) 1 0-10 % Neutrophils # (Auto) 3.9 1.8-7.8 X 10^3 Lymphocytes # (Auto) 1.5 1.0-4.0 X 10^3 Monocytes # (Auto) 0.5 0.0-1.0 X 10^3 Eosinophils # (Auto) 0.1 0.0-0.3 10^3/uL Basophils # (Auto) 0.1 0.0-0.1 10^3/uL Prothrombin Time 13.3 12.2-14.7 SEC INR Comment 1.0 0.8-1.4 Activated Partial Thromboplast Time 34 24-35 SEC Sodium Level 141 135-145 MMOL/L Potassium Level 4.0 3.6-5.0 MMOL/L Chloride Level 106 98-107 MMOL/L Carbon Dioxide Level 26 21-32 MMOL/L Anion Gap 9 5-14 MMOL/L Blood Urea Nitrogen 12 7-18 MG/DL Creatinine 0.81 0.60-1.30 MG/DL Estimat Glomerular Filtration Rate > 60 BUN/Creatinine Ratio 15 Glucose Level 111 H 70-105 MG/DL Calcium Level 9.8 8.5-10.1 MG/DL Corrected Calcium 9.6 8.5-10.1 MG/DL Magnesium Level 2.2 1.6-2.4 MG/DL Total Bilirubin 0.4 0.1-1.0 MG/DL Aspartate Amino Transf (AST/SGOT) 63 H 5-34 U/L Alanine Aminotransferase (ALT/SGPT) 78 H 0-55 U/L Alkaline Phosphatase 121 40-136 U/L Myoglobin 21.8 10.0-92.0 NG/ML Troponin I < 0.028 <0.028 NG/ML B-Type Natriuretic Peptide < 10.0 <100.0 PG/ML Total Protein 7.6 6.4-8.2 GM/DL Albumin 4.3 3.2-4.5 GM/DL TSH [place] Testing 0.60 0.35-4.94 UIU/ML Urine Color YELLOW Urine Clarity CLEAR Urine pH 7 5-9 Urine Specific [place] 1.010 L 1.016-1.022 Urine Protein NEGATIVE NEGATIVE Urine Glucose (UA) NEGATIVE NEGATIVE Urine Ketones NEGATIVE NEGATIVE Urine Nitrite NEGATIVE NEGATIVE Urine Bilirubin NEGATIVE NEGATIVE Urine Urobilinogen 1 NORMAL MG/DL Urine Leukocyte Esterase NEGATIVE NEGATIVE Urine RBC (Auto) NEGATIVE NEGATIVE Urine RBC NONE /HPF Urine WBC NONE /HPF Urine Squamous Epithelial Cells RARE /HPF Urine Crystals NONE /LPF Urine Bacteria TRACE /HPF Urine Casts NONE /LPF Urine Mucus NEGATIVE /LPF Urine Culture Indicated NO My Orders Orders - GINNY MORSE DO Ed Iv/Invasive Line Start (07/25/19 13:18) Ekg Tracing (07/25/19 13:18) Monitor-Rhythm Ecg Trace Only (07/25/19 13:18) Orthostatic Vital Signs (Adult (07/25/19 13:18) BNP (07/25/19 13:18) Cbc With Automated Diff (07/25/19 13:18) Comprehensive Metabolic Panel (07/25/19 13:18) Magnesium (07/25/19 13:18) Protime With Inr (07/25/19 13:18) Partial Thromboplastin Time (07/25/19 13:18) Thyroid Analyzer (07/25/19 13:18) Ua Culture If Indicated (07/25/19 13:18) Myoglobin Serum (07/25/19 13:18) Troponin I (07/25/19 13:18) Ct Head Wo (07/25/19 13:24) Chest 1 View, Ap/Pa Only (07/25/19 13:24) Scopolamine Patch (Transderm-Scop Patch) (07/25/19 13:30) Meclizine Tablet (Antivert Tablet) (07/25/19 13:30) Medications Given in ED Current Medications Medications Dose Ordered Sig/Abdi Route Start Time Stop Time Status Last Admin Dose Admin Meclizine HCl 50 mg ONCE ONCE PO 07/25/19 13:30 07/25/19 13:31 DC 07/25/19 13:40 50 MG Scopolamine 1.5 mg ONCE ONCE TD 07/25/19 13:30 07/25/19 13:31 DC 07/25/19 13:40 1.5 MG Vital Signs/I&O 07/25/19 07/25/19 13:06 14:12 Temp 37.4 Pulse 81 68 71 72 Resp 16 B/P (MAP) 166/100 (122) 153/93 (113) 141/95 (110) 150/98 (115) Pulse Ox 98 O2 Delivery Room Air Capillary Refill : Less Than 3 Seconds Blood Pressure Mean: 122 Departure Impression Primary Impression: Vertigo Disposition: 01 HOME, SELF-CARE Condition: Improved Departure-Patient Inst. Referrals: YARA KEBEDE MD (PCP/Family) Primary Care Physician Patient Instructions: Vertigo (a Type of Dizziness) (DC) Add. Discharge Instructions: SLOW POSITION CHANGES, AND AVOID HEAD MOVEMENTS LOTS OF FLUIDS LEAVE SCOPOLAMINE PATCH IN PLACE FOR 72 HOURS, THEN MAY APPLY A NEW ONE, IF NEEDED FOLLOW UP WITH YOUR DR THIS WEEK FOR FURTHER CARE All discharge instructions reviewed with patient and/or family. Voiced understanding. Scripts Meclizine HCl (Meclizine HCl) 25 Mg Tablet 25-50 MG PO Q6H for Dizziness, #30 TAB Prov: GINNY MORSE DO 07/25/19 Scopolamine (Transderm-Scop) 1 Each Patch.td72 1 EACH TD Q72 HOURS for Dizziness, #3 PATCH Prov: GINNY MORSE DO 07/25/19 GINNY MORSE DO Jul 25, 2019 13:31
[2019-07-25 13:43] LABS: BASOPHILS # (AUTO) 0.1 10^3/uL (0.0-0.1); BASOPHILS % (AUTO) 1 % (0-10); EOSINOPHILS # (AUTO) 0.1 10^3/uL (0.0-0.3); EOSINOPHILS % (AUTO) 2 % (0-10); HEMATOCRIT 39 % (35-52); HEMOGLOBIN 13.4 G/DL (11.5-16.0); LYMPHOCYTES # (AUTO) 1.5 X 10^3 (1.0-4.0); LYMPHOCYTES % (AUTO) 24 % (12-44); MEAN CORPUSCULAR HEMOGLOBIN 32 PG (25-34); MEAN CORPUSCULAR HGB CONC 34 G/DL (32-36); MEAN CORPUSCULAR VOLUME 94 FL (80-99); MEAN PLATELET VOLUME 11.6 FL (7.4-10.4); MONOCYTES # (AUTO) 0.5 X 10^3 (0.0-1.0); MONOCYTES % (AUTO) 8 % (0-12); NEUTROPHILS # (AUTO) 3.9 X 10^3 (1.8-7.8); NEUTROPHILS % (AUTO) 66 % (42-75); PLATELET COUNT 194 10^3/uL (130-400); RED CELL DISTRIBUTION WIDTH 12.3 % (10.0-14.5)
[2019-07-25 13:54] LABS: BILIRUBIN,URINE NEGATIVE (NEGATIVE); CLARITY,URINE CLEAR; COLOR,URINE YELLOW; GLUCOSE, URINE (UA) NEGATIVE (NEGATIVE); KETONES,URINE NEGATIVE (NEGATIVE); LEUKOCYTE ESTERASE ,URINE NEGATIVE (NEGATIVE); NITRITE,URINE NEGATIVE (NEGATIVE); PH,URINE 7 (5-9); PROTEIN,URINE NEGATIVE (NEGATIVE); UROBILINOGEN,URINE 1 MG/DL (NORMAL)
[2019-07-25] MEDS ORDERED: AMLO2.5T4 (13:54)
[2019-07-25 13:58] LABS: PROTHROMBIN TIME PATIENT 13.3 SEC (12.2-14.7)
[2019-07-25 14:01] LABS: BACTERIA,URINE TRACE /HPF
[2019-07-25 14:02] LABS: SQUAMOUS EPITHELIAL CELL,UR RARE /HPF
[2019-07-25 14:05] LABS: ALANINE AMINOTRANSFERASE 78 U/L (0-55); ALBUMIN 4.3 GM/DL (3.2-4.5); ALKALINE PHOSPHATASE 121 U/L (40-136); BILIRUBIN,TOTAL 0.4 MG/DL (0.1-1.0); BUN/CREATININE RATIO 15; CALCIUM 9.8 MG/DL (8.5-10.1); CARBON DIOXIDE 26 MMOL/L (21-32); CHLORIDE 106 MMOL/L (98-107); CREATININE SERUM 0.81 MG/DL (0.60-1.30); GFR ESTIMATED > 60; GLUCOSE 111 MG/DL (70-105); MAGNESIUM 2.2 MG/DL (1.6-2.4); SODIUM 141 MMOL/L (135-145); TOTAL PROTEIN 7.6 GM/DL (6.4-8.2)
--- NOTE | 2019-07-25 14:06 | Diagnostic Imaging Report ---
PATIENT HISTORY: Dizziness. TECHNIQUE: Single frontal view of the chest. COMPARISON: 12/01/2017. FINDINGS: The lung volumes are normal. No focal consolidation is seen. No large pleural effusion or pneumothorax is seen. The cardiomediastinal silhouette is normal in size and contour. No acute osseous abnormality is seen. IMPRESSION: No acute pulmonary abnormality seen. Dictated by: Dictated on workstation # [id number]
[2019-07-25 14:12] VITALS: BP_SYST 141; BP_SYST 150; BP_SYST 153; BP_DIAS 93; BP_DIAS 95; BP_DIAS 98
--- NOTE | 2019-07-25 14:19 | Diagnostic Imaging Report ---
PROCEDURE: CT head without contrast. TECHNIQUE: Multiple contiguous axial images were obtained through the brain without the use of intravenous contrast. Auto Exposure Controls were utilized during the CT exam to meet ALARA standards for radiation dose reduction. INDICATION: Dizziness. COMPARISON: 07/16/2010 FINDINGS: The ventricles and cortical sulci appear age-appropriate. There is no midline shift or mass effect. No acute intracranial hemorrhage is seen. The calvarium is intact. The visualized paranasal sinuses are clear. IMPRESSION: 1. No acute intracranial hemorrhage or CT evidence of acute territorial ischemia. Dictated by: Dictated on workstation # [id number]
[2019-07-25] MEDS ORDERED: MECL-106 PO (14:53)
[2019-07-25] MEDS ORDERED: SCOP1PAT11 TD (14:53)
[2019-07-25 15:01] VITALS: BP 130/97
== END 2019-07-25 15:01 | disposition home or self-care (01) ==
LOC: EDUNIT# 13:02 → ER 13:03
DX: R42 Dizziness and giddiness (principal); I10 Essential (primary) hypertension; E11.9 Type 2 diabetes mellitus without complications; E78.00 Pure hypercholesterolemia, unspecified; Z87.442 Personal history of urinary calculi; Z90.710 Acquired absence of both cervix and uterus; Z90.722 Acquired absence of ovaries, bilateral
CPT/HCPCS: 36415; 70450; 71045; 80053; 81000; 83735; 83874; 83880; 84443; 84484; 85025; 85610; 85730; 93005; 93041

== ENCOUNTER → 2020-01-15 | Outpatient (CLI) | payer OTHER ==
[~2020-01-15] MED LIST changes: +AMLO2.5T4; -MECL-106 PO; +MECL-149 PO; +SCOP1PAT11 TD
[2020-01-15 08:46] LABS: BASOPHILS % (AUTO) 1 % (0-10); EOSINOPHILS # (AUTO) 0.1 10^3/uL (0.0-0.3); EOSINOPHILS % (AUTO) 2 % (0-10); HEMATOCRIT 40 % (35-52); HEMOGLOBIN 13.3 G/DL (11.5-16.0); LYMPHOCYTES # (AUTO) 1.4 X 10^3 (1.0-4.0); LYMPHOCYTES % (AUTO) 22 % (12-44); MEAN CORPUSCULAR HEMOGLOBIN 31 PG (25-34); MEAN CORPUSCULAR HGB CONC 33 G/DL (32-36); MEAN CORPUSCULAR VOLUME 95 FL (80-99); MONOCYTES # (AUTO) 0.3 X 10^3 (0.0-1.0); MONOCYTES % (AUTO) 5 % (0-12); NEUTROPHILS # (AUTO) 4.7 X 10^3 (1.8-7.8); NEUTROPHILS % (AUTO) 71 % (42-75); PLATELET COUNT 159 10^3/uL (130-400); RED CELL DISTRIBUTION WIDTH 12.6 % (10.0-14.5); WHITE BLOOD COUNT 6.5 10^3/uL (4.3-11.0)
[2020-01-15 09:00] LABS: ALANINE AMINOTRANSFERASE 67 U/L (0-55); ALBUMIN 4.3 GM/DL (3.2-4.5); ALKALINE PHOSPHATASE 122 U/L (40-136); BILIRUBIN,TOTAL 0.5 MG/DL (0.1-1.0); BUN/CREATININE RATIO 20; CALCIUM 9.7 MG/DL (8.5-10.1); CARBON DIOXIDE 26 MMOL/L (21-32); CHLORIDE 105 MMOL/L (98-107); CHOLESTEROL 259 MG/DL (< 200); CREATININE SERUM 0.74 MG/DL (0.60-1.30); GFR ESTIMATED > 60; GLUCOSE 121 MG/DL (70-105); HDL CHOLESTEROL 42 MG/DL (40-60); POTASSIUM 4.2 MMOL/L (3.6-5.0); SODIUM 140 MMOL/L (135-145); TOTAL PROTEIN 7.4 GM/DL (6.4-8.2); TRIGLYCERIDES 143 MG/DL (<150); VLDL CHOLESTEROL 29 MG/DL (5-40)
== END ==
LOC: LAB 08:15
PROVIDERS: ATTEND Internal Medicine
DX: Z00.00 Encounter for general adult medical examination without abnormal findings (principal); I10 Essential (primary) hypertension; K74.69 Other cirrhosis of liver
CPT/HCPCS: 36415; 80053; 80061; 84443; 85025

== ENCOUNTER → 2020-01-26 | Outpatient (CLI) | payer OTHER ==
--- NOTE | 2020-01-27 10:08 | Diagnostic Imaging Report ---
INDICATION: Routine screening. Comparison is made with prior mammogram from 01/20/2019 and 12/12/2017. 2-D and 3-D bilateral screening mammography was performed with CAD. Scattered fibroglandular densities are identified bilaterally. The parenchymal pattern is stable. No mass or malignant appearing microcalcifications are seen. Axillae are unremarkable. IMPRESSION: BI-RADS Category 1 No mammographic features suspicious for malignancy are identified. ACR BI-RADS Category 1: Negative. Result letter will be mailed to the patient. Note: At least 10% of breast cancer is not imaged by mammography. Dictated by: Dictated on workstation # [id number]
== END ==
LOC: RAD 15:23
PROVIDERS: ATTEND Internal Medicine
DX: Z12.31 Encounter for screening mammogram for malignant neoplasm of breast (principal)
CPT/HCPCS: 77067

== ENCOUNTER → 2020-08-23 | Outpatient (CLI) | payer OTHER ==
[2020-08-23 11:46] LABS: BILIRUBIN,URINE NEGATIVE (NEGATIVE); CLARITY,URINE SL CLOUDY; COLOR,URINE DARK YELLOW; GLUCOSE, URINE (UA) NEGATIVE (NEGATIVE); KETONES,URINE NEGATIVE (NEGATIVE); LEUKOCYTE ESTERASE ,URINE NEGATIVE (NEGATIVE); NITRITE,URINE NEGATIVE (NEGATIVE); PH,URINE 6.5 (5-9); PROTEIN,URINE NEGATIVE (NEGATIVE)
[2020-08-23 11:53] LABS: BACTERIA,URINE TRACE /HPF; RBC,URINE 25-50 /HPF
== END ==
LOC: LAB 11:17
PROVIDERS: ATTEND Physician Assistant
DX: R31.9 Hematuria, unspecified (principal); M54.5 Low back pain
CPT/HCPCS: 81000

== ENCOUNTER → 2020-08-28 | Outpatient (CLI) | payer OTHER ==
[2020-08-28 16:42] LABS: HEMOGLOBIN 14.4 g/dL (11.5-16.0); MEAN PLATELET VOLUME 11.9 fL (9.0-12.2); WHITE BLOOD COUNT 6.3 10^3/uL (4.3-11.0)
[2020-08-28 16:54] LABS: ALBUMIN 4.6 GM/DL (3.2-4.5); CHLORIDE 99 MMOL/L (98-107); POTASSIUM 3.7 MMOL/L (3.6-5.0); SODIUM 138 MMOL/L (135-145)
[2020-08-28 16:56] LABS: CALCIUM 9.9 MG/DL (8.5-10.1)
[2020-08-28 16:57] LABS: GLUCOSE 112 MG/DL (70-105); TOTAL PROTEIN 8.3 GM/DL (6.4-8.2)
[2020-08-28 16:58] LABS: BILIRUBIN,TOTAL 0.6 MG/DL (0.1-1.0); CARBON DIOXIDE 27 MMOL/L (21-32)
[2020-08-28 17:00] LABS: ALKALINE PHOSPHATASE 91 U/L (40-136); CREATININE SERUM 1.06 MG/DL (0.60-1.30); GFR ESTIMATED 54
[2020-08-28 17:01] LABS: BUN/CREATININE RATIO 20
[2020-08-28 17:03] LABS: ALANINE AMINOTRANSFERASE 51 U/L (0-55)
--- NOTE | 2020-08-28 17:29 | Diagnostic Imaging Report ---
PROCEDURE: CT urinary tract, rule out kidney stone. TECHNIQUE: Multiple contiguous axial images were obtained through the abdomen and pelvis without the use of intravenous contrast. Auto Exposure Controls were utilized during the CT exam to meet ALARA standards for radiation dose reduction. INDICATION: Left flank pain, hematuria, history of nephrolithiasis. COMPARISON with abdominal pelvic CT 07/06/2018. FINDINGS: Seen best on axial image 89, series 2, there is a 1.8 mm stone in the distal third of the left ureter without appreciable upstream hydroureteronephrosis. No perinephric or periureteric fluid collection or urinoma. No significant edema. The appendix is normal. There is no ileus or bowel obstruction. Gallbladder absent. Remaining solid and hollow viscus unremarkable. IMPRESSION: Tiny distal left ureteral stone 1.8 mm without hydronephrosis. No other significant finding. Dictated by: Dictated on workstation # [id number]
== END ==
LOC: RAD 16:24
PROVIDERS: ATTEND Physician Assistant
DX: M54.5 Low back pain (principal); R10.30 Lower abdominal pain, unspecified; R31.9 Hematuria, unspecified; Z90.49 Acquired absence of other specified parts of digestive tract; Z87.442 Personal history of urinary calculi
CPT/HCPCS: 36415; 74176; 80053; 85027

== ENCOUNTER → 2020-09-16 | Outpatient (CLI) | payer OTHER ==
[2020-09-16 08:16] LABS: ALANINE AMINOTRANSFERASE 57 U/L (0-55); ALBUMIN 4.1 GM/DL (3.2-4.5); ALKALINE PHOSPHATASE 96 U/L (40-136); BILIRUBIN,TOTAL 0.7 MG/DL (0.1-1.0); BUN/CREATININE RATIO 18; CALCIUM 9.4 MG/DL (8.5-10.1); CARBON DIOXIDE 23 MMOL/L (21-32); CHLORIDE 106 MMOL/L (98-107); CHOLESTEROL 250 MG/DL (< 200); CREATININE SERUM 0.76 MG/DL (0.60-1.30); GFR ESTIMATED > 60; GLUCOSE 117 MG/DL (70-105); HDL CHOLESTEROL 45 MG/DL (40-60); POTASSIUM 4.1 MMOL/L (3.6-5.0); SODIUM 140 MMOL/L (135-145); TOTAL PROTEIN 7.4 GM/DL (6.4-8.2); TRIGLYCERIDES 139 MG/DL (<150); VLDL CHOLESTEROL 28 MG/DL (5-40)
== END ==
LOC: LAB 07:38
PROVIDERS: ATTEND Internal Medicine
DX: I10 Essential (primary) hypertension (principal)
CPT/HCPCS: 36415; 80053; 80061

== ENCOUNTER 2020-12-15 05:36 | Outpatient (RCR) | payer OTHER ==
[~2020-12-15] VITALS: Ht 165.1 cm; Wt 80.3 kg
== END 2020-12-15 13:36 | disposition home or self-care (01) ==
LOC: PREOP 05:36
PROVIDERS: ATTEND Surgery
DX: Z01.812 Encounter for preprocedural laboratory examination (principal); K21.9 Gastro-esophageal reflux disease without esophagitis; Z20.822 Contact with and (suspected) exposure to COVID-19
CPT/HCPCS: 87635

== ENCOUNTER → 2020-12-19 | Day surgery (SDC) | payer OTHER ==
[~2020-12-19] VITALS: Ht 165 cm; Wt 80.3 kg
[~2020-12-19] MED LIST changes: +ACHD5005 PO; +HURRICAINE EXT TUBE (BENZOCAINE) ONE; +HURRICAINE EXT TUBE (BENZOCAINE) XX PRN; +LACTATED RINGERS 1,000 ML IV ONE; +LACTATED RINGERS 1,000 ML IV STA; +MIDAZOLAM 2 MG/2 ML (VERSED) VIAL ONE; +PANT40TA2 PO; +PROPOFOL INJECTION 50 ML IV ONE; +proPOfol 200 MG/20 ML (DIPRIVAN) VIAL IV ONE
[2020-12-19 07:24] VITALS: BP 142/88
--- NOTE | 2020-12-19 08:20 | Progress Note-Pre Operative ---
Pre-Operative Progress Note H&P Reviewed The H&P was reviewed, patient examined and no changes noted. Date Seen by Provider: Dec 19, 2020 Time Seen by Provider: 08:20 Date H&P Reviewed: Dec 19, 2020 Time H&P Reviewed: 08:20 Pre-Operative Diagnosis: gerd, ruq abd pain NIMCO VERAS DO Dec 19, 2020 08:20
[2020-12-19 09:10] VITALS: BP 171/97
[2020-12-19 09:15] VITALS: BP 170/98
[2020-12-19 09:20] VITALS: BP 166/85
--- NOTE | 2020-12-19 09:20 | Progress Note-Post Operative ---
Post-Operative Progess Note Surgeon (s)/Internal Medicine Nurse (s) Surgeon NIMCO VERAS DO Internal Medicine Nurse: na Pre-Operative Diagnosis gerd, ruq abd pain Post-Operative Diagnosis hiatal hernia, gastritis, gastric polyp, colon polyps, rectal mucosal change Procedure & Operative Findings Date of Procedure 12/19/20 Procedure Performed/Findings egd c biopsies, colonosocpy c hot bx polypectomy x 2, snare polypectomy x 1 with missy inking and hot bx rectal mucosa Anesthesia Type per retail salesman Estimated Blood Loss Estimated blood loss (mL): scant Specimens/Packing Specimens Removed antrum, ge, colon polyps, rectal mucosa NIMCO VERAS DO Dec 19, 2020 09:19
--- NOTE | 2020-12-19 09:21 | Discharge Inst-Simple/Standard ---
Discharge Inst-Standard Discharge Medications New, Converted or Re-Newed RX: Transmitted to Pharmacy Patient Instructions/Follow Up Plan of Care/Instructions/FU: 3 weeks Karthik Activity as Tolerated: Yes Discharge Diet: Regular Diet NIMCO VERAS DO Dec 19, 2020 09:21
[2020-12-19 09:45] VITALS: BP 147/87
--- NOTE | 2020-12-19 11:46 | OPERATIVE REPORT ---
DATE OF SERVICE: 12/19/2020 PREOPERATIVE DIAGNOSES: Gastroesophageal reflux disease, right upper quadrant abdominal pain. POSTOPERATIVE DIAGNOSES: Hiatal hernia, gastritis, gastric polyp, colon polyps, rectal mucosal change. PROCEDURE: EGD with biopsies, colonoscopy with hot biopsy polypectomy x2, snare polypectomy x1 with Cindy inking and hot biopsy rectal mucosa. SURGEON: Nimco Angeles DO ANESTHESIA: Per BOILER PLANT WORKER. ESTIMATED BLOOD LOSS: Scant. COMPLICATIONS: None. INDICATIONS: The patient is a 55-year-old female with GERD and right upper quadrant abdominal pain. She understands risks and benefits of procedure and wished to proceed with procedure. Consent was signed in the chart. DESCRIPTION OF PROCEDURE: The patient was taken to the endoscopy suite, placed in left lateral recumbent position. Timeout was performed. Scope was inserted in mouth, down the esophagus, stomach and into the duodenum without difficulty. There were no polyps, masses or ulcerations within the duodenum. Scope was slowly retracted back into the stomach where it was further insufflated. Area of erythematous changes in appearance of some slight gastritis in the antrum, biopsies of the antrum were obtained. Scope was retroflexed noting a small gastric polyp, benign in appearance and also hiatal hernia, small in size. No other pathology noted. Scope was returned to its normal position, slowly withdrawn to distal esophagus. A biopsy of the GE junction was obtained. Scope was then slowly retracted back noting no other pathology until completely removed. Digital rectal exam was performed. There were no palpable polyps, masses or ulcerations. Scope was inserted in the rectum and advanced all the way to cecum with minimal difficulty. Prep was adequate with irrigation and suction. There are no polyps, masses or ulcerations within the cecum. In the ascending colon, a small polyp was present, which hot biopsy polypectomy was performed. Just proximal to this area, there was another larger polyp, which snare polypectomy was performed. This area was also inked 1 mL in three different locations. The polyp was placed in a basket and then continued to be slowly retracted back. No polyps, masses or ulcerations within the remainder of the ascending, transverse and in the descending colon. In the sigmoid colon, a small polyp was present. Therefore, the scope was then retracted completely. The polyp in the basket was removed and the scope was then reinserted, hot biopsy polypectomy was performed with a small sigmoid polyp. Scope was then continued slowly retracted back in the rectum, some slight mucosal change, which hot biopsy was performed. The rectum was too narrow to retroflex therefore multiple insertions and retractions were made noting no other pathology. The patient tolerated procedure well without any complications, taken to recovery room in stable condition. RECOMMENDATIONS: The patient will be started on Protonix 40 mg daily. We would recommend follow up on pathology and likely repeat colonoscopy in 1 to 3 years. Job ID: [id number] DocumentID: [id number] Dictated Date: 12/19/2020 09:25:54 Pot Feeder Date: 12/19/2020 11:45:38 Dictated By: NIMCO ANGELES DO
--- NOTE | 2020-12-19 13:25 | Anesthesia-General Post-Op ---
MAC Patient Condition Mental Status/LOC: Same as Preop Cardiovascular: Satisfactory Nausea/Vomiting: Absent Respiratory: Satisfactory Pain: Controlled Complications: Absent Post Op Complications Complications None Follow Up Care/Instructions Patient Instructions None needed. Anesthesiology Discharge Order Discharge Order Patient is doing well, no complaints, stable vital signs, no apparent adverse anesthesia problems. No complications reported per nursing. SENA ISLAS CRNA Dec 19, 2020 13:25
== END ==
LOC: ENDO 07:04
PROVIDERS: ATTEND Surgery
DX: D12.2 Benign neoplasm of ascending colon (principal); K44.9 Diaphragmatic hernia without obstruction or gangrene; K21.00 Gastro-esophageal reflux disease with esophagitis, without bleeding; K63.5 Polyp of colon; K62.1 Rectal polyp; K31.7 Polyp of stomach and duodenum; I10 Essential (primary) hypertension; G47.33 Obstructive sleep apnea (adult) (pediatric); E78.00 Pure hypercholesterolemia, unspecified; Z79.899 Other long term (current) drug therapy; Z90.710 Acquired absence of both cervix and uterus; Z83.3 Family history of diabetes mellitus
CPT/HCPCS: 88305

== ENCOUNTER 2020-12-23 14:21 | Emergency (ER) | payer OTHER ==
[~2020-12-23] VITALS: Ht 165.1 cm; Wt 79.8 kg
[~2020-12-23 14:21] MED LIST changes: -ACHD5005 PO; -HURRICAINE EXT TUBE (BENZOCAINE) ONE; -HURRICAINE EXT TUBE (BENZOCAINE) XX PRN; -LACTATED RINGERS 1,000 ML IV ONE; -LACTATED RINGERS 1,000 ML IV STA; -MIDAZOLAM 2 MG/2 ML (VERSED) VIAL ONE; -PROPOFOL INJECTION 50 ML IV ONE; -proPOfol 200 MG/20 ML (DIPRIVAN) VIAL IV ONE
--- NOTE | 2020-12-23 14:43 | ED Back Pain ---
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 PT REPORTS PAIN AT 0500 TODAY AND IT WENT AWAY AND RETURNED THIS AFTERNOON. PT REPORTS PAIN WITH URINATION. Nursing Sepsis Screen: No Definite Risk Source of Information: Patient Exam Limitations: No Limitations History of Present Illness Date Seen by Provider: Dec 23, 2020 Time Seen by Provider: 14:42 Initial Comments This is a healthy appearing 55 you female with LLQ back and flank pain that started at 0500 this morning. States pain went away and returned this afternoon approximately 1 hour prior to arrival and it feels like previous episode of kidney stone. Currently rating pain 10/10, constant and sharp. No fevers, chills, cough, shortness of breath, nausea/vomiting/diarrhea. Allergies and Home Medications Allergies Coded Allergies: No Known Drug Allergies (Unverified , 02/28/09) Home Medications Hydrocodone/Acetaminophen 1 Each Tablet, 1 TAB PO Q6H PRN for PAIN-MODERATE (5- 7) Prescribed by: RENEE TINSLEY on 12/23/20 1554 Losartan Potassium 25 Mg Tablet, 25 MG PO BID, (Reported) 25MG IN AM AND 50 IN PM Meclizine HCl 25 Mg Tablet, 25-50 MG PO Q6H Prescribed by: GINNY MORSE on 07/25/19 1453 Pantoprazole Sodium 40 Mg Tablet.dr, 40 MG PO DAILY Prescribed by: NIMCO VERAS on 12/19/20 0920 Patient Home Medication List Home Medication List Reviewed: Yes Review of Systems Constitutional: see HPI EENTM: no symptoms reported Respiratory: no symptoms reported Cardiovascular: no symptoms reported Gastrointestinal: no symptoms reported Genitourinary: decreased output, dysuria, frequency Musculoskeletal: no symptoms reported Skin: no symptoms reported Psychiatric/Neurological: No Symptoms Reported Past Omqlfuu-Mclduv-Opdcaz Hx Patient Social History Alcohol Use: Denies Use Smoking Status: Never a Smoker 2nd Hand Smoke Exposure: No Recent Infectious Disease Expo: No Recent Hopitalizations: No Immunizations Up To Date Tetanus Booster (TDap): Less than 5yrs Date of Influenza Vaccine: Aug 10, 2017 Seasonal Allergies Seasonal Allergies: No Past Medical History Surgeries: Yes (HYST/BSO; LEFT KNEE SURGERY; RIGHT ELBOW SURGERY) Gallbladder, Hysterectomy, Oophorectomy, Orthopedic Respiratory: No Cardiac: Yes High Cholesterol, Hypertension Neurological: No Vertigo Reproductive Disorders: No Female Reproductive Disorders: 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 oz. 81.071309gn; 29.00 BMI Method:Stated General Appearance: No Apparent Distress, WD/WN HEENT: PERRL/EOMI, TMs Normal, Normal ENT Inspection, Pharynx Normal, Moist Mucous Membranes Neck: Full Range of Motion, Normal Inspection Cardiovascular: Regular Rate, Rhythm, Normal Peripheral Pulses Respiratory: Chest Non Tender, Lungs Clear, Normal Breath Sounds Gastrointestinal: Normal Bowel Sounds, Non Tender, Soft Back: Normal Inspection, CVA Tenderness (L) Extremity: Normal Capillary Refill, Normal Inspection, Normal Range of Motion Neurologic/Psychiatric: Alert, Oriented x3, No Motor/Sensory Deficits, Normal Mood/Affect Skin: Normal Color, Warm/Dry Progress/Results/Core Measures Results/Orders Lab Results Laboratory Tests Test 12/23/20 14:33 Range/Units Urine Color YELLOW Urine Clarity CLEAR Urine pH 5.5 5-9 Urine Specific Pana >=1.030 1.016-1.022 Urine Protein NEGATIVE NEGATIVE Urine Glucose (UA) NEGATIVE NEGATIVE Urine Ketones NEGATIVE NEGATIVE Urine Nitrite NEGATIVE NEGATIVE Urine Bilirubin 1+ H NEGATIVE Urine Urobilinogen 0.2 < = 1.0 MG/DL Urine Leukocyte Esterase NEGATIVE NEGATIVE Urine RBC (Auto) 1+ H NEGATIVE Urine RBC 2-5 H /HPF Urine WBC NONE /HPF Urine Squamous Epithelial Cells 0-2 /HPF Urine Crystals PRESENT H /LPF Urine Calcium Oxalate Crystals FEW H /LPF Urine Bacteria NEGATIVE /HPF Urine Casts NONE /LPF Urine Mucus NEGATIVE /LPF Urine Culture Indicated NO My Orders Orders - RENEE TINSLEY APRN Ua Culture If Indicated (12/23/20 14:25) Ct Abd/Pelvis Wo(Kidney Stone) (12/23/20 14:43) Abdomen/Kub 1view (12/23/20 14:43) Ed Iv/Invasive Line Start (12/23/20 14:43) Fentanyl Injection (Sublimaze Injection (12/23/20 14:45) Ketorolac Injection (Toradol Injection) (12/23/20 15:45) Medications Given in ED Vital Signs/I&O 12/23/20 12/23/20 14:34 15:58 Temp 36.8 Pulse 55 88 Resp 17 18 B/P (MAP) 145/81 (102) 136/80 Pulse Ox 99 O2 Delivery Room Air Room Air Blood Pressure Mean: 102 Progress Progress Note : Progress Note Pt. examined and in no acute distress. Initiated renal stone workup. Orders placed for Fentanyl 25mcg IVP for pain. Labs reviewed and are unremarkable. KUB is unremarkable. CT abd/pelvis with contrast show small distal 2-3mm stone in left ureter, with mild obstruction. Orders placed for Toradol 30mg IVP. Discussed findings and POC, she is agreeable with plan. Provided hat and urine strainer. Diagnostic Imaging Diagonstic Imaging: Xray Plain Films/CT/US/NM/MRI: abdomen Comments NAME: ELISSA FALL [facility] REC#: [id number] PT STATUS: DEP ER : 1965 PHYSICIAN: RENEE ITNSLEY APRN ADMIT DATE: 12/23/20/ER Signed Date of Exam:12/23/20 ABDOMEN/KUB 1VIEW INDICATION: Flank pain, kidney stone suspected. TECHNIQUE: Single supine view of the abdomen 3:14 p.m. CORRELATION STUDY: None. FINDINGS: Gas and stool is present throughout the colon. No evidence for underlying obstruction. Calcification of the pelvis. Several of these are likely vascular. At least one however is in the left hemipelvis which could be an expected course of the distal left ureter. IMPRESSION: 1. Nonobstructive appearing bowel gas pattern. 2. Small calcification of the left hemipelvis. At least one would be in the expected location of the course of the left ureter with distal ureteral stones not excluded. Dictated by: Dictated on workstation # [id number] Dict: 12/23/20 0029 Trans: 12/23/201708 Zenaida [id number] Interpreted by: BINH SOUZA DO Electronically signed by: BINH SOUZA DO 12/23/201708 Reviewed: Reviewed by Me Diagonstic Imaging: CT Plain Films/CT/US/NM/MRI: abdomen, pelvis Comments NAME: ELISSA FALL [facility] REC#: [id number] PT STATUS: DEP ER : 1965 PHYSICIAN: RENEE TINSLEY FIELD SUPPORT REPRESENTATIVE ADMIT DATE: 12/23/20/ER Signed Date of Exam:12/23/20 CT ABD/PELVIS WO(KIDNEY STONE) PROCEDURE: CT urinary tract, rule out kidney stone. TECHNIQUE: Multiple contiguous axial images were obtained through the abdomen and pelvis without the use of intravenous contrast. Auto Exposure Controls were utilized during the CT exam to meet ALARA standards for radiation dose reduction. INDICATION: Microscopic hematuria, left posterior pain. History of renal stones. CORRELATION STUDY: 08/28/2020. FINDINGS: LOWER THORAX: Lung bases are clear. Heart size is mildly enlarged. Small hiatal hernia at the gastroesophageal junction. LIVER: Unremarkable. GALLBLADDER: Cholecystectomy. No bile ductal dilatation. SPLEEN: Unremarkable. PANCREAS: Unremarkable. ADRENAL GLANDS: Unremarkable. KIDNEYS: 2-3 mm stone in the distal left ureter just proximal to the UVJ is present. This results in very mild prominence of the left renal collecting system, slight engorgement of left kidney. Right kidney collecting system unremarkable. ABDOMINAL AORTA: Mild wall calcification, nonaneurysmal. A few shotty mesenteric and central retroperitoneal lymph nodes are present. GASTROINTESTINAL TRACT: No obstruction or inflammation. Normal appendix. URINARY BLADDER: Decompressed. REPRODUCTIVE: Post hysterectomy. OSSEOUS STRUCTURES: No acute abnormality. OTHER: None. IMPRESSION: 1. Very small, 2-3 mm distal left ureteral stone resulting in very mild left-sided obstruction. Dictated by: Dictated on workstation # [id number] Dict: 12/23/207 Trans: 12/23/201710 [facility] [id number] Interpreted by: BINH SOUZA DO Electronically signed by: BINH SOUZA DO 12/23/201710 Reviewed: Reviewed by Me Departure Impression Primary Impression: Kidney stone on left side Disposition: 01 HOME, SELF-CARE Condition: Improved Departure-Patient Inst. Decision time for Depature: 15:52 Referrals: YARA KEBEDE MD (PCP/Family) Primary Care Physician Patient Instructions: Kidney Stones (DC) Add. Discharge Instructions: Plan: 1. Drink plenty fluids to help stone pass, lemon water is especially helpful. 2. Strain all of your urine to monitor for passing of the stone. 3. Take Ibuprofen 600mg PO every 6 hours as needed for pain, take with food. 4. Use Lortab 5/325mg tablet every 6 hours as needed for breakthrough pain. Do not drive while taking. 5. Return to ER for any new, concerning, or worsening symptoms. All discharge instructions reviewed with patient and/or family. Voiced understanding. Scripts Hydrocodone/Acetaminophen (Hydrocodone-Acetamin 5-325 mg) 1 Each Tablet 1 TAB PO Q6H PRN for PAIN-MODERATE (5-7), #20 TAB 0 Refills Prov: RENEE TINSLEY FIELD SUPPORT REPRESENTATIVE 12/23/20 RENEE TINSLEY FIELD SUPPORT REPRESENTATIVE Dec 23, 2020 14:43
[2020-12-23] MEDS ORDERED: fentaNYL INJECTION 100 MCG/2 ML AMP IVP ONE (14:45)
[2020-12-23 14:48] LABS: CLARITY,URINE CLEAR; COLOR,URINE YELLOW; GLUCOSE, URINE (UA) NEGATIVE (NEGATIVE); KETONES,URINE NEGATIVE (NEGATIVE); LEUKOCYTE ESTERASE ,URINE NEGATIVE (NEGATIVE); NITRITE,URINE NEGATIVE (NEGATIVE); PH,URINE 5.5 (5-9); PROTEIN,URINE NEGATIVE (NEGATIVE)
[2020-12-23 14:57] LABS: BACTERIA,URINE NEGATIVE /HPF; BILIRUBIN,URINE 1+ (NEGATIVE); SQUAMOUS EPITHELIAL CELL,UR 0-2 /HPF
[2020-12-23 14:58] LABS: CALCIUM OXALATE CRYSTALS,UR FEW /LPF
--- NOTE | 2020-12-23 15:23 | Diagnostic Imaging Report ---
INDICATION: Flank pain, kidney stone suspected. TECHNIQUE: Single supine view of the abdomen 3:14 p.m. CORRELATION STUDY: None. FINDINGS: Gas and stool is present throughout the colon. No evidence for underlying obstruction. Calcification of the pelvis. Several of these are likely vascular. At least one however is in the left hemipelvis which could be an expected course of the distal left ureter. IMPRESSION: 1. Nonobstructive appearing bowel gas pattern. 2. Small calcification of the left hemipelvis. At least one would be in the expected location of the course of the left ureter with distal ureteral stones not excluded. Dictated by: Dictated on workstation # [id number]
--- NOTE | 2020-12-23 15:34 | Diagnostic Imaging Report ---
PROCEDURE: CT urinary tract, rule out kidney stone. TECHNIQUE: Multiple contiguous axial images were obtained through the abdomen and pelvis without the use of intravenous contrast. Auto Exposure Controls were utilized during the CT exam to meet ALARA standards for radiation dose reduction. INDICATION: Microscopic hematuria, left posterior pain. History of renal stones. CORRELATION STUDY: 08/28/2020. FINDINGS: LOWER THORAX: Lung bases are clear. Heart size is mildly enlarged. Small hiatal hernia at the gastroesophageal junction. LIVER: Unremarkable. GALLBLADDER: Cholecystectomy. No bile ductal dilatation. SPLEEN: Unremarkable. PANCREAS: Unremarkable. ADRENAL GLANDS: Unremarkable. KIDNEYS: 2-3 mm stone in the distal left ureter just proximal to the UVJ is present. This results in very mild prominence of the left renal collecting system, slight engorgement of left kidney. Right kidney collecting system unremarkable. ABDOMINAL AORTA: Mild wall calcification, nonaneurysmal. A few shotty mesenteric and central retroperitoneal lymph nodes are present. GASTROINTESTINAL TRACT: No obstruction or inflammation. Normal appendix. URINARY BLADDER: Decompressed. REPRODUCTIVE: Post hysterectomy. OSSEOUS STRUCTURES: No acute abnormality. OTHER: None. IMPRESSION: 1. Very small, 2-3 mm distal left ureteral stone resulting in very mild left-sided obstruction. Dictated by: Dictated on workstation # [id number]
[2020-12-23] MEDS ORDERED: KETOROLAC 30 MG/ML VIAL IVP ONE (15:45)
[2020-12-23] MEDS ORDERED: ACHD5005 PO (15:54)
[2020-12-23 15:58] VITALS: BP 136/80
== END 2020-12-23 15:59 | disposition home or self-care (01) ==
LOC: EDUNIT# 14:21 → ER 14:23
DX: N20.0 Calculus of kidney (principal); I10 Essential (primary) hypertension
CPT/HCPCS: 74018; 74176; 81000

== ENCOUNTER → 2021-01-20 | Outpatient (CLI) | payer OTHER ==
[~2021-01-20] MED LIST changes: +ACHD5005 PO
[2021-01-20 09:32] LABS: BASOPHILS # (AUTO) 0.1 10^3/uL (0.0-0.1); BASOPHILS % (AUTO) 1 % (0-10); EOSINOPHILS # (AUTO) 0.1 10^3/uL (0.0-0.3); EOSINOPHILS % (AUTO) 3 % (0-10); HEMATOCRIT 41 % (35-52); HEMOGLOBIN 13.5 g/dL (11.5-16.0); LYMPHOCYTES # (AUTO) 1.8 10^3/uL (1.0-4.0); LYMPHOCYTES % (AUTO) 36 % (12-44); MEAN CORPUSCULAR HEMOGLOBIN 32 pg (25-34); MEAN CORPUSCULAR HGB CONC 33 g/dL (32-36); MEAN CORPUSCULAR VOLUME 97 fL (80-99); MEAN PLATELET VOLUME 11.3 fL (9.0-12.2); MONOCYTES # (AUTO) 0.3 10^3/uL (0.0-1.0); MONOCYTES % (AUTO) 6 % (0-12); NEUTROPHILS # (AUTO) 2.7 10^3/uL (1.8-7.8); NEUTROPHILS % (AUTO) 54 % (42-75); PLATELET COUNT 201 10^3/uL (130-400); WHITE BLOOD COUNT 4.9 10^3/uL (4.3-11.0)
[2021-01-20 09:45] LABS: ALBUMIN 4.3 GM/DL (3.2-4.5); CHLORIDE 105 MMOL/L (98-107); POTASSIUM 3.9 MMOL/L (3.6-5.0); SODIUM 140 MMOL/L (135-145)
[2021-01-20 09:46] LABS: CALCIUM 9.5 MG/DL (8.5-10.1)
[2021-01-20 09:47] LABS: TOTAL PROTEIN 7.7 GM/DL (6.4-8.2); TRIGLYCERIDES 137 MG/DL (<150); VLDL CHOLESTEROL 27 MG/DL (5-40)
[2021-01-20 09:48] LABS: GLUCOSE 105 MG/DL (70-105)
[2021-01-20 09:49] LABS: BILIRUBIN,TOTAL 0.7 MG/DL (0.1-1.0); CARBON DIOXIDE 26 MMOL/L (21-32)
[2021-01-20 09:51] LABS: ALKALINE PHOSPHATASE 108 U/L (40-136); GFR ESTIMATED > 60
[2021-01-20 09:52] LABS: BUN/CREATININE RATIO 20; CHOLESTEROL 234 MG/DL (< 200)
[2021-01-20 09:53] LABS: HDL CHOLESTEROL 43 MG/DL (40-60)
[2021-01-20 10:12] LABS: ALANINE AMINOTRANSFERASE 54 U/L (0-55)
== END ==
LOC: LAB 09:15
PROVIDERS: ATTEND Internal Medicine
DX: Z00.00 Encounter for general adult medical examination without abnormal findings (principal)
CPT/HCPCS: 36415; 80053; 80061; 84443; 85025

== ENCOUNTER → 2021-01-26 | Outpatient (CLI) | payer OTHER ==
--- NOTE | 2021-01-29 08:42 | Diagnostic Imaging Report ---
INDICATION: Routine screening. COMPARISON: 01/26/2020 and 01/20/2019. TECHNIQUE: 2D and 3D bilateral screening mammography was performed with CAD. FINDINGS: Both breasts are heterogeneously dense, limiting the sensitivity of mammography. No mass or malignant appearing microcalcifications are seen. The axillae are unremarkable. IMPRESSION: No mammographic features suspicious for malignancy are identified. ACR BI-RADS Category 1: Negative. Result letter will be mailed to the patient. Note: At least 10% of breast cancer is not imaged by mammography. Dictated by: Dictated on workstation # [id number]
== END ==
LOC: RAD 15:15
PROVIDERS: ATTEND Internal Medicine
DX: Z12.31 Encounter for screening mammogram for malignant neoplasm of breast (principal)
CPT/HCPCS: 77063; 77067

== ENCOUNTER → 2021-03-01 | Outpatient (CLI) | payer OTHER ==
[2021-03-01 15:07] LABS: BILIRUBIN,DIRECT 0.2 MG/DL (0.0-0.3); BILIRUBIN,INDIRECT 0.3 MG/DL; BILIRUBIN,TOTAL 0.5 MG/DL (0.1-1.0)
== END ==
LOC: LAB 14:33
PROVIDERS: ATTEND Internal Medicine
DX: K74.69 Other cirrhosis of liver (principal)
CPT/HCPCS: 36415; 80076

== ENCOUNTER → 2021-03-27 | Outpatient (CLI) | payer OTHER | LOC: LAB 16:48 | PROVIDERS: ATTEND Internal Medicine | DX: K74.69 Other cirrhosis of liver (principal) | CPT/HCPCS: 87088 ==

== ENCOUNTER → 2021-07-14 | Outpatient (CLI) | payer OTHER ==
[2021-07-14 09:11] LABS: BASOPHILS # (AUTO) 0.1 10^3/uL (0.0-0.1); BASOPHILS % (AUTO) 1 % (0-10); EOSINOPHILS # (AUTO) 0.1 10^3/uL (0.0-0.3); EOSINOPHILS % (AUTO) 2 % (0-10); HEMATOCRIT 39 % (35-52); HEMOGLOBIN 12.8 g/dL (11.5-16.0); LYMPHOCYTES # (AUTO) 2.2 10^3/uL (1.0-4.0); LYMPHOCYTES % (AUTO) 32 % (12-44); MEAN CORPUSCULAR HEMOGLOBIN 32 pg (25-34); MEAN CORPUSCULAR HGB CONC 33 g/dL (32-36); MEAN CORPUSCULAR VOLUME 98 fL (80-99); MEAN PLATELET VOLUME 10.4 fL (9.0-12.2); MONOCYTES # (AUTO) 0.5 10^3/uL (0.0-1.0); MONOCYTES % (AUTO) 7 % (0-12); NEUTROPHILS % (AUTO) 59 % (42-75); PLATELET COUNT 209 10^3/uL (130-400); WHITE BLOOD COUNT 6.8 10^3/uL (4.3-11.0)
[2021-07-14 09:24] LABS: ALBUMIN 4.2 GM/DL (3.2-4.5)
[2021-07-14 09:25] LABS: CALCIUM 9.7 MG/DL (8.5-10.1)
[2021-07-14 09:26] LABS: TOTAL PROTEIN 7.5 GM/DL (6.4-8.2)
[2021-07-14 09:28] LABS: BILIRUBIN,TOTAL 0.5 MG/DL (0.1-1.0)
[2021-07-14 09:30] LABS: CREATININE SERUM 0.79 MG/DL (0.60-1.30)
[2021-07-14 09:38] LABS: BAND NEUTROPHILS 0 %; BASOPHILS % (MANUAL) 1 %; EOSINOPHILS % (MANUAL) 2 %; LYMPHOCYTES % (MANUAL) 34 %; MONOCYTES % (MANUAL) 4 %; NEUTROPHILS % (MANUAL) 59 %; RBC MORPH NORMAL
== END ==
LOC: LAB 08:41
PROVIDERS: ATTEND Family Medicine
DX: R31.9 Hematuria, unspecified (principal)
CPT/HCPCS: 36415; 80053; 80061; 84443; 85007; 85027

== ENCOUNTER → 2021-07-14 | Outpatient (CLI) | payer OTHER | LOC: LAB 08:37 | PROVIDERS: ATTEND Family Medicine | DX: K20.90 Esophagitis, unspecified without bleeding (principal); N20.0 Calculus of kidney; K74.69 Other cirrhosis of liver; I10 Essential (primary) hypertension; K29.70 Gastritis, unspecified, without bleeding | CPT/HCPCS: 87088 ==

== ENCOUNTER 2022-01-04 05:30 | Outpatient (RCR) | payer OTHER ==
[~2022-01-04] VITALS: Ht 165.1 cm; Wt 80.3 kg
[2022-01-08] MEDS ORDERED: SUCR1TAB36 PO (10:15)
== END 2022-01-04 13:49 | disposition home or self-care (01) ==
LOC: PREOP 05:30
PROVIDERS: ATTEND Surgery
DX: Z01.818 Encounter for other preprocedural examination (principal); R10.13 Epigastric pain; Z86.010 Personal history of colon polyps

== ENCOUNTER → 2022-01-04 | Outpatient (CLI) | payer OTHER ==
[~2022-01-04] MED LIST changes: +ATOR40TA70 PO; +HYDR12.56 PO; +SCOP1PAT10 TD; -SCOP1PAT11 TD
== END ==
LOC: LABNPT 06:41
PROVIDERS: ATTEND Surgery
DX: Z20.822 Contact with and (suspected) exposure to COVID-19 (principal)
CPT/HCPCS: 87636

== ENCOUNTER 2022-01-08 08:56 | Day surgery (SDC) | payer OTHER ==
[~2022-01-08] VITALS: Ht 165.1 cm; Wt 80.3 kg
[2022-01-08] MEDS ORDERED: HURRICAINE EXT TUBE (BENZOCAINE) XX PRN (09:00)
[2022-01-08] MEDS ORDERED: LACTATED RINGERS 1,000 ML IV ONE (09:00)
[2022-01-08] MEDS ORDERED: LACTATED RINGERS 1,000 ML IV STA (09:00)
[2022-01-08 09:05] VITALS: BP 123/80
[2022-01-08] MEDS ORDERED: MIDAZOLAM 2 MG/2 ML (VERSED) VIAL ONE (09:12)
--- NOTE | 2022-01-08 09:12 | Progress Note-Pre Operative ---
Pre-Operative Progress Note H&P Reviewed The H&P was reviewed, patient examined and no changes noted. Date Seen by Provider: Jan 08, 2022 Time Seen by Provider: 09:11 Date H&P Reviewed: Jan 08, 2022 Time H&P Reviewed: 09:11 Pre-Operative Diagnosis: hx polyps, epigastric pain NIMCO VERAS DO Jan 08, 2022 09:12
[2022-01-08] MEDS ORDERED: PROPOFOL INJECTION 50 ML IV ONE (09:13)
[2022-01-08 10:10] VITALS: BP 111/77
--- NOTE | 2022-01-08 10:14 | Progress Note-Post Operative ---
Post-Operative Progess Note Surgeon (s)/Crm Marketing Specialist (s) Surgeon NIMCO VERAS DO Crm Marketing Specialist: na Pre-Operative Diagnosis hx polyps, epigastric pain Post-Operative Diagnosis gastritis, hiatal hernia, colon polyps Procedure & Operative Findings Date of Procedure 01/08/22 Procedure Performed/Findings egd c biopsies colonoscopy c hot bx polypectomy x 3 Anesthesia Type per aircraft manager Estimated Blood Loss Estimated blood loss (mL): none Specimens/Packing Specimens Removed duodenum, antrum, colon polyps NIMCO VERSA DO Jan 08, 2022 10:14
[2022-01-08 10:15] VITALS: BP 100/69
[2022-01-08] MEDS ORDERED: SUCR1TAB36 PO (10:15)
--- NOTE | 2022-01-08 10:15 | Discharge Inst-Simple/Standard ---
Discharge Inst-Standard Discharge Medications New, Converted or Re-Newed RX: Transmitted to Pharmacy Patient Instructions/Follow Up Plan of Care/Instructions/FU: 3 weeks Karthik Activity as Tolerated: Yes Discharge Diet: Regular Diet NIMCO VERAS DO Jan 08, 2022 10:15
[2022-01-08 10:20] VITALS: BP 100/82
[2022-01-08 10:44] VITALS: BP 95/65
--- NOTE | 2022-01-08 11:52 | Anesthesia-General Post-Op ---
MAC Patient Condition Mental Status/LOC: Same as Preop Cardiovascular: Satisfactory Nausea/Vomiting: Absent Respiratory: Satisfactory Pain: Controlled Complications: Absent Post Op Complications Complications None Follow Up Care/Instructions Patient Instructions None needed. Anesthesiology Discharge Order Discharge Order Patient is doing well, no complaints, stable vital signs, no apparent adverse anesthesia problems. No complications reported per nursing. SENA ISLAS CRNA Jan 08, 2022 11:52
--- NOTE | 2022-01-08 18:14 | OPERATIVE REPORT ---
DATE OF SERVICE: 01/08/2022 PREOPERATIVE DIAGNOSES: Epigastric abdominal pain, history of polyps. POSTOPERATIVE DIAGNOSES: Gastritis, small hiatal hernia, colon polyps. PROCEDURE: EGD with biopsies, colonoscopy with hot biopsy polypectomy x3. SURGEON: Nimco Angeles DO ANESTHESIA: Per MANAGER INSURANCE. ESTIMATED BLOOD LOSS: None. COMPLICATIONS: None. INDICATIONS: The patient is a 56-year-old female needing colonoscopy due to history of polyps. She also has been having some epigastric abdominal pain. She will do EGD. She understands risks and benefits of procedure and wishes to proceed. Consent was signed in the chart. DESCRIPTION OF PROCEDURE: The patient was taken to the endoscopy suite, placed in left lateral recumbent position. Timeout was performed. Scope was inserted in mouth, down the esophagus, stomach and into the duodenum without difficulty. No polyps, masses or ulcerations within the duodenum. Slight mucosal change. Biopsy of the duodenum was obtained. Scope was slowly retracted back into the stomach where it was further insufflated. Evidence of gastritis and some small ulcerations. There were some punctate ulcerations may be present. A biopsy of the antrum was obtained. Scope was then retroflexed noting a small hiatal hernia, no other pathology except for a small benign-appearing gastric polyp. Scope was returned to its normal position, slowly withdrawn to distal esophagus, had normal appearance. No polyps, masses or ulcerations. Scope was slowly retracted back until completely removed. Digital rectal exam was performed. No palpable polyps, masses or ulcerations. Scope was inserted in the rectum and advanced all the way to cecum with minimal difficulty. Prep was adequate. Scope was then slowly retracted back. No polyps, masses or ulcerations in the cecum. In ascending colon, two small polyps were present, which hot biopsy polypectomies were performed. Scope was then continuously retracted back. No polyps, masses or ulcerations within the transverse, descending and sigmoid colon. In the rectum, a small polyp was present, which hot biopsy polypectomy was performed. Scope was retroflexed noting no other pathology. Scope was returned to its normal position, slowly withdrawn until completely removed. The patient tolerated the procedure well without any complications. She was taken to recovery room in stable condition. RECOMMENDATIONS: The patient will need repeat colonoscopy in 5 years. Any issues before that be seen at that time. The patient will be placed on Carafate 1 gram four times a day. She will follow up in the office in 3 weeks. Any issues be seen at that time. Job ID: [id number] DocumentID: [id number] Dictated Date: 01/08/2022 10:22:20 Marketing Recruiter Date: 01/08/2022 18:12:43 Dictated By: NIMCO ANGELES DO
== END 2022-01-08 11:19 | disposition home or self-care (01) ==
LOC: ENDO 08:56
PROVIDERS: ATTEND Surgery
DX: K29.70 Gastritis, unspecified, without bleeding (principal); D12.2 Benign neoplasm of ascending colon; K63.5 Polyp of colon; K31.89 Other diseases of stomach and duodenum; K44.9 Diaphragmatic hernia without obstruction or gangrene
CPT/HCPCS: 88305

== ENCOUNTER → 2022-01-13 | Outpatient (CLI) | payer OTHER ==
[~2022-01-13] MED LIST changes: +SUCR1TAB36 PO
[2022-01-13 08:34] LABS: BASOPHILS % (AUTO) 1 % (0-10); EOSINOPHILS # (AUTO) 0.1 10^3/uL (0.0-0.3); EOSINOPHILS % (AUTO) 2 % (0-10); HEMATOCRIT 39 % (35-52); HEMOGLOBIN 12.7 g/dL (11.5-16.0); LYMPHOCYTES # (AUTO) 1.8 10^3/uL (1.0-4.0); LYMPHOCYTES % (AUTO) 34 % (12-44); MEAN CORPUSCULAR HEMOGLOBIN 32 pg (25-34); MEAN CORPUSCULAR HGB CONC 33 g/dL (32-36); MEAN CORPUSCULAR VOLUME 97 fL (80-99); MEAN PLATELET VOLUME 11.7 fL (9.0-12.2); MONOCYTES # (AUTO) 0.3 10^3/uL (0.0-1.0); MONOCYTES % (AUTO) 6 % (0-12); NEUTROPHILS % (AUTO) 56 % (42-75); PLATELET COUNT 178 10^3/uL (130-400); WHITE BLOOD COUNT 5.3 10^3/uL (4.3-11.0)
[2022-01-13 08:41] LABS: POTASSIUM 3.6 MMOL/L (3.6-5.0)
[2022-01-13 08:42] LABS: ALBUMIN 4.1 GM/DL (3.2-4.5)
[2022-01-13 08:43] LABS: CALCIUM 9.8 MG/DL (8.5-10.1)
[2022-01-13 08:44] LABS: TOTAL PROTEIN 7.3 GM/DL (6.4-8.2)
[2022-01-13 08:46] LABS: BILIRUBIN,TOTAL 0.6 MG/DL (0.1-1.0)
[2022-01-13 08:47] LABS: CREATININE SERUM 0.79 MG/DL (0.60-1.30)
== END ==
LOC: LAB 07:56
PROVIDERS: ATTEND Internal Medicine
DX: Z00.00 Encounter for general adult medical examination without abnormal findings (principal); Z79.899 Other long term (current) drug therapy
CPT/HCPCS: 36415; 80053; 80061; 84443; 85025

== ENCOUNTER → 2022-01-28 | Outpatient (CLI) | payer OTHER ==
--- NOTE | 2022-01-28 16:37 | Diagnostic Imaging Report ---
INDICATION: Routine screening. COMPARISON: 01/26/2021. TECHNIQUE: 2D and 3D bilateral screening mammography was performed with CAD. FINDINGS: Both breasts are heterogeneously dense, limiting the sensitivity of mammography. The parenchymal pattern is stable. No mass or malignant-appearing microcalcifications are seen. The axillae are unremarkable. IMPRESSION: No mammographic features suspicious for malignancy are identified. ACR BI-RADS Category 1: Negative. Result letter will be mailed to the patient. Note: At least 10% of breast cancer is not imaged by mammography. Dictated by: Dictated on workstation # [id number]
== END ==
LOC: RAD 15:45
PROVIDERS: ATTEND Internal Medicine
DX: Z12.31 Encounter for screening mammogram for malignant neoplasm of breast (principal)
CPT/HCPCS: 77063; 77067

== ENCOUNTER → 2022-05-22 | Outpatient (CLI) | payer OTHER ==
[2022-05-22 08:14] LABS: BASOPHILS # (AUTO) 0.1 10^3/uL (0.0-0.1); BASOPHILS % (AUTO) 1 % (0-10); EOSINOPHILS # (AUTO) 0.1 10^3/uL (0.0-0.3); EOSINOPHILS % (AUTO) 2 % (0-10); HEMATOCRIT 38 % (35-52); HEMOGLOBIN 12.7 g/dL (11.5-16.0); LYMPHOCYTES # (AUTO) 1.5 10^3/uL (1.0-4.0); LYMPHOCYTES % (AUTO) 26 % (12-44); MEAN CORPUSCULAR HEMOGLOBIN 32 pg (25-34); MEAN CORPUSCULAR HGB CONC 34 g/dL (32-36); MEAN CORPUSCULAR VOLUME 95 fL (80-99); MEAN PLATELET VOLUME 11.4 fL (9.0-12.2); MONOCYTES # (AUTO) 0.4 10^3/uL (0.0-1.0); MONOCYTES % (AUTO) 7 % (0-12); NEUTROPHILS # (AUTO) 3.7 10^3/uL (1.8-7.8); NEUTROPHILS % (AUTO) 64 % (42-75); PLATELET COUNT 165 10^3/uL (130-400); WHITE BLOOD COUNT 5.7 10^3/uL (4.3-11.0)
[2022-05-22 08:34] LABS: BILIRUBIN,TOTAL 0.6 MG/DL (0.1-1.0); CALCIUM 9.5 MG/DL (8.5-10.1); CREATININE SERUM 0.78 MG/DL (0.60-1.30); POTASSIUM 3.7 MMOL/L (3.6-5.0); TOTAL PROTEIN 7.2 GM/DL (6.4-8.2)
== END ==
LOC: LAB 07:46
PROVIDERS: ATTEND Nurse Practitioner Family
DX: I10 Essential (primary) hypertension (principal); E78.5 Hyperlipidemia, unspecified
CPT/HCPCS: 36415; 80053; 80061; 83036; 84443; 85025

== ENCOUNTER 2022-06-13 18:02 | Emergency (ER) | payer OTHER ==
[~2022-06-13] VITALS: Ht 167.7 cm; Wt 80.3 kg
--- NOTE | 2022-06-13 18:23 | ED GU-Female ---
General Chief Complaint: Abdominal/GI Problems Stated Complaint: ABD PAIN Source: patient Exam Limitations: no limitations (KATHY MARCOS) History of Present Illness Date Seen by Provider: Jun 13, 2022 Time Seen by Provider: 18:21 Initial Comments Patient is a 56-year-old female presents ED with urinary symptoms. Started 1 hour ago. She states she tried to urinate and noted some pain and discomfort with dribbling. She has urinated twice since then. She has no other complaints such as abdominal pain or fever, vomiting, diarrhea, chills. History of kidney stones but states this feels like a urinary tract infection. (KATHY MARCOS) Allergies and Home Medications Allergies Coded Allergies: No Known Drug Allergies (Unverified , 02/28/09) Patient Home Medication List Home Medication List Reviewed: Yes (KATHY MARCOS) Amlodipine Besylate (Amlodipine Besylate) 2.5 Mg Tablet, (Reported) Entered as Reported by: MYKEL RAVI on 07/25/19 1354 Atorvastatin Calcium (Atorvastatin Calcium) 40 Mg Tablet, 40 MG PO DAILY, (Reported) Entered as Reported by: PASHA MAC on 12/31/21 1346 Cephalexin (Cephalexin) 500 Mg Tablet, 500 MG PO BID Prescribed by: KAREN STRANGE on 06/13/222006 Hydrochlorothiazide (Hydrochlorothiazide) 12.5 Mg Tablet, 12.5 MG PO DAILY, (Reported) Entered as Reported by: PASHA MAC on 12/31/21 1346 Losartan Potassium (Losartan Potassium) 25 Mg Tablet, 25 MG PO BID, (Reported) Entered as Reported by: NOAH NEWBY on 02/02/13 1011 Pantoprazole Sodium (Protonix) 40 Mg Tablet.dr, 40 MG PO DAILY Prescribed by: NIMCO VERAS on 12/19/20 0920 Sucralfate (Carafate) 1 Gm Tablet, 1 GM PO QID Prescribed by: NIMCO VERAS on 01/08/22 1015 Review of Systems Review of Systems Constitutional: No chills, No diaphoresis, No malaise, No weakness Respiratory: No cough, No dyspnea on exertion Cardiovascular: No chest pain, No edema Gastrointestinal: No abdominal pain, No nausea, No vomiting Genitourinary: burning; denies discharge; frequency, urgency Musculoskeletal: No back pain, No joint pain Skin: No change in color, No change in hair/nails (KATHY MARCOS) All Other Systemes Reviewed Negative Unless Noted: Yes (KATHY MARCOS) Past Kafmtad-Cbzrpt-Hmewge Hx Immunizations Up To Date Tetanus Booster (TDap): Less than 5yrs First/Initial COVID19 Vaccinat: YES Second COVID19 Vaccination Thiago: YES Third COVID19 Vaccination Date: YES (KATHY MARCOS) Seasonal Allergies Seasonal Allergies: No (KATHY MARCOS) Past Medical History Surgeries: Yes (HYST/BSO; LEFT KNEE SURGERY; RIGHT ELBOW SURGERY) Gallbladder, Hysterectomy, Oophorectomy, Orthopedic Respiratory: Yes COPD Cardiac: Yes High Cholesterol, Hypertension Neurological: No Vertigo Reproductive Disorders: No 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 Sexually Transmitted Disease: No Genitourinary: Yes Kidney Stones Gastrointestinal: Yes (CHRONIC RLQ PAIN) Gastroesophageal Reflux Musculoskeletal: No Endocrine: No Diabetes, Non-Insulin dep HEENT: No Cancer: No Psychosocial: No Integumentary: No Blood Disorders: No (KATHY MARCOS) Family Medical History No Pertinent Family Hx (KATHY MARCOS) Physical Exam Vital Signs Vital Signs - First Documented 06/13/22 18:12 Temp 36.5 Pulse 64 Resp 18 B/P (MAP) 137/92 (107) Pulse Ox 96 O2 Delivery Room Air (FRANK DAMON MD) Vital Signs Capillary Refill : (KATHY MARCOS) Height, Weight, BMI Height: 5'6.00" Weight: 180lbs. oz. 81.453808ll; 29.45 BMI Method:Stated General Appearance: WD/WN, no apparent distress HEENT: PERRL/EOMI, normal ENT inspection, TMs normal, pharynx normal Neck: non-tender, full range of motion, supple, normal inspection Cardiovascular: regular rate, rhythm, no edema, no gallop, no JVD Respiratory: chest non-tender, lungs clear, normal breath sounds, no respiratory distress, no accessory muscle use Gastrointestinal: normal bowel sounds, non tender, soft, no organomegaly, no pulsatile mass Back: normal inspection, no CVA tenderness, no vertebral tenderness Extremities: normal range of motion, non-tender, normal inspection, no pedal edema Neurologic/Psychiatric: scale shooter II-XII nml as tested, no motor/sensory deficits, alert, normal mood/affect, oriented x 3 Skin: normal color (KATHY MARCOS) Progress/Results/Core Measures Suspected Sepsis SIRS Temperature: Pulse: Respiratory Rate: Blood Pressure / Mean: (KATHY MARCOS) Results/Orders Lab Results Laboratory Tests Test 06/13/22 19:15 Range/Units Urine Color YELLOW Urine Clarity CLEAR Urine pH 6.0 5-9 Urine Specific [place] >=1.030 1.016-1.022 Urine Protein TRACE H NEGATIVE Urine Glucose (UA) NEGATIVE NEGATIVE Urine Ketones NEGATIVE NEGATIVE Urine Nitrite NEGATIVE NEGATIVE Urine Bilirubin 1+ H NEGATIVE Urine Urobilinogen 2.0 < = 1.0 MG/DL Urine Leukocyte Esterase 2+ H NEGATIVE Urine RBC (Auto) 3+ H NEGATIVE Urine RBC TNTC H /HPF Urine WBC TNTC H /HPF Urine Squamous Epithelial Cells 2-5 /HPF Urine Crystals NONE /LPF Urine Bacteria LARGE H /HPF Urine Casts NONE /LPF Urine Mucus SMALL H /LPF Urine Culture Indicated YES (FRANK DAMON MD) Vital Signs/I&O 06/13/22 06/13/22 18:12 20:10 Temp 36.5 36.5 Pulse 64 62 Resp 18 16 B/P (MAP) 137/92 (107) 128/87 Pulse Ox 96 99 O2 Delivery Room Air Room Air (FRANK DAMON MD) Vital Signs/I&O Capillary Refill : (KATHY MARCOS) Departure Communication (PCP) Patient with UTI. Was given dose of Keflex. No acute distress. No flank pain, fever, vomiting, diarrhea. Culture pending currently. If any worsening symptoms return back to ED for further evaluation such as fever, chills, worsening urinary symptoms. Patient in no acute distress. She agrees with plan of action. Recheck of urinalysis in 5 days with PCP (KATHY MARCOS) Impression Primary Impression: UTI (urinary tract infection) Disposition: 01 HOME, SELF-CARE Condition: Stable Departure-Patient Inst. Decision time for Depature: 20:06 (KATHY MARCOS) Referrals: YARA KEBEDE MD (PCP/Family) Primary Care Physician Patient Instructions: Urinary Tract Infections in Adults Scripts Cephalexin (Cephalexin) 500 Mg Tablet 500 MG PO BID for 7 Days, #14 TAB Prov: KATHY MARCOS 06/13/22 ATTENDING PHYSICIAN NOTE: I was physically present as attending physician in the emergency department during the care of this patient, but I was not directly involved in the decision making or delivery of care for this patient. (FRANK DAMON MD) KATHY MARCOS Jun 13, 2022 18:23 FRANK DAMON MD Jun 14, 2022 05:05
[2022-06-13 19:26] LABS: BILIRUBIN,URINE 1+ (NEGATIVE); CLARITY,URINE CLEAR; COLOR,URINE YELLOW; GLUCOSE, URINE (UA) NEGATIVE (NEGATIVE); KETONES,URINE NEGATIVE (NEGATIVE); LEUKOCYTE ESTERASE ,URINE 2+ (NEGATIVE); NITRITE,URINE NEGATIVE (NEGATIVE); PROTEIN,URINE TRACE (NEGATIVE)
[2022-06-13 20:04] LABS: BACTERIA,URINE LARGE /HPF; RBC,URINE TNTC /HPF; WBC,URINE TNTC /HPF
[2022-06-13] MEDS ORDERED: CEPHALEXIN 250 MG (KEFLEX) CAP PO STA (20:05)
[2022-06-13] MEDS ORDERED: CEPH500T PO (20:07)
[2022-06-13 20:10] VITALS: BP 128/87
== END 2022-06-13 20:11 | disposition home or self-care (01) ==
LOC: EDUNIT# 18:02 → ER 18:05
DX: N39.0 Urinary tract infection, site not specified (principal); Z87.442 Personal history of urinary calculi
CPT/HCPCS: 81000; 87077; 87088; 87186; 99283

== ENCOUNTER → 2022-08-23 | Outpatient (CLI) | payer OTHER ==
[~2022-08-23] MED LIST changes: +CEPH500T PO
[2022-08-23 07:54] LABS: BASOPHILS % (AUTO) 1 % (0-10); EOSINOPHILS % (AUTO) 3 % (0-10); HEMATOCRIT 38 % (35-52); HEMOGLOBIN 12.7 g/dL (11.5-16.0); LYMPHOCYTES % (AUTO) 31 % (12-44); MEAN CORPUSCULAR HEMOGLOBIN 31 pg (25-34); MEAN CORPUSCULAR HGB CONC 33 g/dL (32-36); MEAN CORPUSCULAR VOLUME 95 fL (80-99); MEAN PLATELET VOLUME 11.3 fL (9.0-12.2); MONOCYTES % (AUTO) 6 % (0-12); NEUTROPHILS % (AUTO) 59 % (42-75); PLATELET COUNT 178 10^3/uL (130-400); WHITE BLOOD COUNT 5.5 10^3/uL (4.3-11.0)
[2022-08-23 07:55] LABS: BASOPHILS # (AUTO) 0.1 10^3/uL (0.0-0.1); EOSINOPHILS # (AUTO) 0.2 10^3/uL (0.0-0.3); LYMPHOCYTES # (AUTO) 1.7 10^3/uL (1.0-4.0); MONOCYTES # (AUTO) 0.3 10^3/uL (0.0-1.0); NEUTROPHILS # (AUTO) 3.3 10^3/uL (1.8-7.8)
[2022-08-23 08:20] LABS: ALBUMIN 4.1 GM/DL (3.2-4.5); BILIRUBIN,TOTAL 0.7 MG/DL (0.1-1.0); CALCIUM 9.6 MG/DL (8.5-10.1); CREATININE SERUM 0.77 MG/DL (0.60-1.30); POTASSIUM 3.8 MMOL/L (3.6-5.0); TOTAL PROTEIN 7.1 GM/DL (6.4-8.2)
[2022-08-23 08:57] LABS: BAND NEUTROPHILS 1 %; BASOPHILS % (MANUAL) 1 %; EOSINOPHILS % (MANUAL) 4 %; LYMPHOCYTES % (MANUAL) 27 %; MONOCYTES % (MANUAL) 4 %; NEUTROPHILS % (MANUAL) 63 %; RBC MORPH NORMAL
== END ==
LOC: LAB 07:31
PROVIDERS: ATTEND Internal Medicine
DX: I10 Essential (primary) hypertension (principal); K29.70 Gastritis, unspecified, without bleeding; N20.0 Calculus of kidney; K74.69 Other cirrhosis of liver; E11.65 Type 2 diabetes mellitus with hyperglycemia
CPT/HCPCS: 36415; 80053; 80061; 83036; 84443; 85007; 85027

== ENCOUNTER → 2023-01-09 | Outpatient (CLI) | payer OTHER ==
[2023-01-09 08:15] LABS: BASOPHILS % (AUTO) 1 % (0-10); EOSINOPHILS # (AUTO) 0.1 10^3/uL (0.0-0.3); EOSINOPHILS % (AUTO) 2 % (0-10); HEMATOCRIT 36 % (35-52); HEMOGLOBIN 11.9 g/dL (11.5-16.0); LYMPHOCYTES # (AUTO) 1.6 10^3/uL (1.0-4.0); LYMPHOCYTES % (AUTO) 34 % (12-44); MEAN CORPUSCULAR HEMOGLOBIN 31 pg (25-34); MEAN CORPUSCULAR HGB CONC 33 g/dL (32-36); MEAN CORPUSCULAR VOLUME 94 fL (80-99); MEAN PLATELET VOLUME 10.8 fL (9.0-12.2); MONOCYTES # (AUTO) 0.6 10^3/uL (0.0-1.0); MONOCYTES % (AUTO) 12 % (0-12); NEUTROPHILS # (AUTO) 2.3 10^3/uL (1.8-7.8); NEUTROPHILS % (AUTO) 50 % (42-75); PLATELET COUNT 169 10^3/uL (130-400); WHITE BLOOD COUNT 4.7 10^3/uL (4.3-11.0)
[2023-01-09 08:40] LABS: BILIRUBIN,TOTAL 0.6 MG/DL (0.1-1.0); CALCIUM 9.9 MG/DL (8.5-10.1); CREATININE SERUM 0.73 MG/DL (0.60-1.30); POTASSIUM 3.9 MMOL/L (3.6-5.0); TOTAL PROTEIN 7.1 GM/DL (6.4-8.2)
== END ==
LOC: LAB 07:52
PROVIDERS: ATTEND Internal Medicine
DX: Z00.00 Encounter for general adult medical examination without abnormal findings (principal); I10 Essential (primary) hypertension; E11.9 Type 2 diabetes mellitus without complications; E78.2 Mixed hyperlipidemia; Z79.899 Other long term (current) drug therapy
CPT/HCPCS: 36415; 80053; 80061; 83036; 84443; 85025

== ENCOUNTER → 2023-05-22 | Outpatient (CLI) | payer BC, OTHER ==
[2023-05-22 14:58] LABS: ALBUMIN 4.1 GM/DL (3.2-4.5); BILIRUBIN,TOTAL 0.5 MG/DL (0.1-1.0); CALCIUM 9.8 MG/DL (8.5-10.1); CREATININE SERUM 0.87 MG/DL (0.60-1.30); POTASSIUM 3.8 MMOL/L (3.6-5.0); TOTAL PROTEIN 6.9 GM/DL (6.4-8.2)
== END ==
LOC: LAB 14:17
PROVIDERS: ATTEND Internal Medicine
DX: I10 Essential (primary) hypertension (principal); E11.9 Type 2 diabetes mellitus without complications; K20.90 Esophagitis, unspecified without bleeding; G47.33 Obstructive sleep apnea (adult) (pediatric)
CPT/HCPCS: 36415; 80053; 83036

== ENCOUNTER → 2023-07-03 | Outpatient (CLI) | payer BC ==
--- NOTE | 2023-07-03 14:38 | Diagnostic Imaging Report ---
Indication: Routine screening. Comparison is made with prior mammogram 01/28/2022 and 01/26/2021. 2-D and 3-D bilateral screening mammography was performed with CAD. The current study was also evaluated with a Computer Aided Detection (CAD) system. Both breasts are heterogeneously dense, limiting the sensitivity of mammography. No mass or malignant-appearing microcalcifications are seen. Axillae are unremarkable. IMPRESSION: BI-RADS Category 1 No mammographic features suspicious for malignancy are identified. ACR BI-RADS Category 1: Negative. Result letter will be mailed to the patient. Note: At least 10% of breast cancer is not imaged by mammography. Dictated by: Dictated on workstation # [id number]
== END ==
LOC: RAD 10:51
PROVIDERS: ATTEND Internal Medicine
DX: Z12.31 Encounter for screening mammogram for malignant neoplasm of breast (principal)
CPT/HCPCS: 77063; 77067

== ENCOUNTER → 2023-09-25 | Outpatient (CLI) | payer BC ==
[~2023-09-25] MED LIST changes: -MECL-149 PO; +MECL-291 PO
[2023-09-25 14:41] LABS: ALBUMIN 4.1 GM/DL (3.2-4.5)
[2023-09-25 14:42] LABS: POTASSIUM 3.5 MMOL/L (3.6-5.0)
[2023-09-25 14:43] LABS: CALCIUM 9.1 MG/DL (8.5-10.1)
[2023-09-25 14:44] LABS: TOTAL PROTEIN 7.1 GM/DL (6.4-8.2)
[2023-09-25 14:46] LABS: BILIRUBIN,TOTAL 0.4 MG/DL (0.1-1.0)
[2023-09-25 14:48] LABS: CREATININE SERUM 0.8 MG/DL (0.60-1.30)
== END ==
LOC: LAB 14:15
PROVIDERS: ATTEND Internal Medicine
DX: E11.9 Type 2 diabetes mellitus without complications (principal); I10 Essential (primary) hypertension; E78.2 Mixed hyperlipidemia; R35.0 Frequency of micturition; J30.2 Other seasonal allergic rhinitis
CPT/HCPCS: 36415; 80053; 83036

== ENCOUNTER → 2023-10-16 | Outpatient (CLI) | payer BC ==
[2023-10-16 11:50] LABS: POTASSIUM 4.1 MMOL/L (3.6-5.0)
[2023-10-16 11:51] LABS: CALCIUM 9.7 MG/DL (8.5-10.1)
[2023-10-16 11:56] LABS: CREATININE SERUM 0.78 MG/DL (0.60-1.30)
== END ==
LOC: LAB 11:29
PROVIDERS: ATTEND Internal Medicine
DX: E87.6 Hypokalemia (principal); I10 Essential (primary) hypertension; K74.60 Unspecified cirrhosis of liver
CPT/HCPCS: 36415; 80048